=== PATIENT | male | born 1960 | race Caucasian/White ===

== ENCOUNTER → 2020-10-13 | Outpatient (REF) | payer MEDICARE, OTHER | LOC: M LAB REF 15:59 | PROVIDERS: ATTEND Surgery | DX: I87.312 Chronic venous hypertension (idiopathic) with ulcer of left lower extremity (principal) ==

== ENCOUNTER → 2020-10-21 | Outpatient (CLI) | payer MEDICARE, BC, OTHER ==
[2020-10-21 14:43] LABS: BASO % 0.4 % (0.0-1.0); EOS % 0.1 % (0.0-3.0); HEMATOCRIT 32.4 % (42.0-52.0); HEMOGLOBIN 8.7 g/dl (13.5-17.5); LYMPH # 0.6 10^3/uL (1.5-5.0); LYMPH % 5.3 % (24.0-44.0); MEAN CORPUSCULAR HEMOGLOBIN 21.1 pg (27.0-33.0); MEAN CORPUSCULAR HGB CONC 26.9 g/dl (32.0-36.5); MEAN CORPUSCULAR VOLUME 78.6 fl (80.0-96.0); MONO # 0.4 10^3/uL (0.0-0.8); MONO % 3.3 % (0.0-5.0); NEUTROPHILS # 9.7 10^3/uL (1.5-8.5); NEUTROPHILS % 89.3 % (36.0-66.0); PLATELET COUNT, AUTOMATED 389 10^3/uL (150-450); RED BLOOD COUNT 4.12 10^6/uL (4.30-6.10); WHITE BLOOD COUNT 10.9 10^3/uL (4.0-10.0)
[2020-10-21 15:11] LABS: ALBUMIN 3.6 GM/DL (3.2-5.2); ALT/SGPT 29 U/L (12-78); BILIRUBIN,TOTAL 0.5 MG/DL (0.2-1.0); BLOOD UREA NITROGEN 22 MG/DL (7-18); C REACTIVE PROTEIN QUANTITATIV 0.73 MG/DL (0.00-0.30); CALCIUM LEVEL 8.8 MG/DL (8.5-10.1); CARBON DIOXIDE LEVEL 26 MEQ/L (21-32); CHLORIDE LEVEL 98 MEQ/L (98-107); CREATININE FOR GFR 1.17 MG/DL (0.70-1.30); ERYTHROCYTE SEDIMENTATION RATE 25 mm/hr (0-20); GLOMERULAR FILTRATION RATE > 60.0 (>56); GLUCOSE, FASTING 302 MG/DL (70-100); POTASSIUM SERUM 4.7 MEQ/L (3.5-5.1); SODIUM LEVEL 136 MEQ/L (136-145)
[2020-10-21 15:34] LABS: HEMOGLOBIN A1c 8.2 %
--- NOTE | 2020-10-21 17:07 | REP ---
INDICATION: CHRONIC VENOUS HTN W/ ULCER, LABS 1ST THEN US. COMPARISON: None FINDINGS: Ankle brachial index unobtainable. 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 Profundal 103 centimeters/second triphasic. SFA proximal 217 centimeters/seconds triphasic. SFA Mid 118 centimeters/second triphasic SFA distal 108 centimeters/second triphasic Popliteal 117 centimeters/second triphasic Anterior tibial artery proximal 89.0 centimeters/second biphasic Tibioperoneal trunk 109 centimeters/second triphasic Posterior tibial artery proximally 98.2 centimeters/second triphasic Posterior tibial artery distal 139 centimeters/second triphasic. Anterior tibial artery distal 107 centimeters/second biphasic Moderate plaque was seen throughout the exam. IMPRESSION: As above <Electronically signed by Lito Newton > 10/21/20 1835
[2020-10-23 13:08] LABS: ANTINUCLEAR ANTIBODIES DIRECT Negative (Negative)
== END ==
LOC: M RAD 13:58
PROVIDERS: ATTEND Surgery
DX: I87.312 Chronic venous hypertension (idiopathic) with ulcer of left lower extremity (principal); L97.822 Non-pressure chronic ulcer of other part of left lower leg with fat layer exposed; Z79.899 Other long term (current) drug therapy

== ENCOUNTER → 2020-11-17 | Outpatient (CLI) | payer MEDICARE, BC, OTHER ==
[~2020-11-17] MED LIST: AMAR1TAB5 PO; AMIT25TA17 PO; CBD OIL SL; ELIQ2.5T PO; FISH1000 PO; IRBE150T7 PO; LIDO85CR TP; LOPE1LIQ18 PO; METF500T13 PO; PRAV40TA2 PO; PRED10TA2 PO; PYRI60TA2 PO; SANT250O8 TOP; TRAM50TA2 PO; TRUL10IN SC; VITA500C24 PO; ZINC1TAB2 PO; [UNRECOGNIZED DRUG - CODE] TOP; chondroitin PO; glucosamine PO
--- NOTE | 2020-11-17 16:55 | REP ---
INDICATION: OSTEOARTHRITIS. Monoclonal gammopathy. Osteoarthritis. COMPARISON: None. TECHNIQUE: Sixteen views. AP and lateral views of the skull are obtained along with AP and lateral views of the cervical, thoracic, and lumbar spine. AP pelvis and AP bilateral femur and bilateral humerus views are obtained. FINDINGS: Bony calvarium is intact. No lytic or punched-out lesion is seen in the skull. AP and lateral views of the cervical spine show mild vascular calcification. Degenerative spondylosis changes are seen at C5-6 and C6-7 with degenerative disc disease and some straightening. Vertebral body heights are preserved. AP and lateral views of the thoracic spine show preserved vertebral body heights. Old healed rib fractures are noted on the right posteriorly. Degenerative disc disease is noted in the thoracic spine. Pedicles and posterior elements are intact. Vertebral body heights are preserved. Lumbar spine view show fusion hardware L3 through L5 bilaterally. Lumbar vertebral body heights are preserved. Degenerative disc disease is noted at L2-3 and to a lesser extent at L1-2 and T12-L1. No fracture or collapse is seen. Long bone images demonstrate bilateral hip arthroplasties with bilateral heterotopic bone formation. No bony radiolucency or lytic lesion is seen. Vascular calcification is noted diffusely. Bilateral shoulder arthroplasties are noted as well. IMPRESSION: No evidence of bony destructive lytic lesion or metastasis. <Electronically signed by Jero Brenner > 11/17/20 [id number]
== END ==
LOC: M RAD 13:16
PROVIDERS: ATTEND Internal Medicine Medical Oncology
DX: D47.2 Monoclonal gammopathy (principal); M19.90 Unspecified osteoarthritis, unspecified site

== ENCOUNTER → 2021-01-06 | Outpatient (CLI) | payer MEDICARE, BC, OTHER ==
[~2021-01-06] MED LIST changes: +ASPI81TA26 PO; +ATOR40TA75 PO; +DICL1GEL3 TOP; +FERR325T3 PO; +GLIM1TAB4 PO; +PRED50TA PO
== END ==
LOC: M LABSMTC 12:34
PROVIDERS: ATTEND Anesthesiology
DX: Z01.818 Encounter for other preprocedural examination (principal); Z11.52 Encounter for screening for COVID-19

== ENCOUNTER → 2021-01-07 | Outpatient (CLI) | payer MEDICARE, BC, OTHER ==
--- NOTE | 2021-01-12 17:13 | SLEEPCENT ---
DATE: 01/07/2021 ORDERED BY: Dr. Corazon Kidd Nocturnal polysomnography was performed for evaluation of sleep physiology in this patient with a history of excessive somnolence and nonrestorative sleep. There was 7 hours and 41 of data reviewed. There was 372 minutes of sleep identified. Sleep latency was normal at 12.5 minutes. REM sleep was mildly prolonged at 122 minutes. Sleep architecture fair with fragmentation. There were three REM cycles noted. Overall sleep efficiency 82.2%. The electrocardiogram showed a sinus rhythm with an average heart rate of 66 beats per minute. There were some premature ventricular contractions (PVCs) appreciated. EEG showed coarsening in background but otherwise normal waveforms for wake and sleep. There were 187 respiratory events identified of 10 seconds in duration or greater for an apnea-hypopnea index of 30.2. The events were obstructive for the most part. Thirty-two mixed and central apneas were seen. The events were not exclusive to sleep stage nor body posture. Arousals from respiratory events occurred 8.1 times per hour, and oxygen desaturations below 90% were seen. There was activity in the limb leads. Limb movement arousal index was 2.4. IMPRESSION: Obstructive sleep apnea syndrome (G47.33). Apnea-hypopnea index 30.2 RECOMMENDATION: The patient should be encouraged to return to the sleep disorder center for pressure therapy. In the interim, alcohol and sedative avoidance should be practiced and caution exercised during the operation of motor vehicles.
== END ==
LOC: M SLEEP 20:00
PROVIDERS: ATTEND Internal Medicine Pulmonary Disease
DX: G47.33 Obstructive sleep apnea (adult) (pediatric) (principal)

== ENCOUNTER 2021-01-11 07:54 | Day surgery (SDC) | payer MEDICARE, BC, OTHER ==
[~2021-01-11] VITALS: Ht 177.8 cm; Wt 100.7 kg
[~2021-01-11 07:54] MED LIST changes: +LIDOCAINE 2% 100MG/5ML SDV (FOR ANES.) As Ordered ONE; +NS 1,000 ML IV ONE; +fentaNYL 100 MCG/2 ML INJECTION (J3010) As Ordered ONE; +propofoL 200 MG/20 ML VIAL As Ordered ONE
[2021-01-11] MEDS ORDERED: PHENYLephrine 500MCG 5ML (100MCG/ML) SYRINGE As Ordered ONE (10:27)
[2021-01-11] MEDS ORDERED: SIMETHICONE 40MG/0.6ML DROPS 30ML As Ordered ONE (10:37)
--- NOTE | 2021-01-11 10:39 | ROOR ---
Patient Name: Salvador Aguillon Procedure Date: 01/11/2021 10:06 AM Date of : 1960 Age: 60 Room: [facility] Gender: Male Note Status: Finalized Procedure: Upper GI endoscopy Indications: Iron deficiency anemia Providers: Vinicio DOTSON MD Referring MD: María Elena ANDERSON MD Requesting Provider: Medicines: Monitored Anesthesia Care Complications: No immediate complications. Procedure: Pre-Anesthesia Assessment: - The heart rate, respiratory rate, oxygen saturations, blood pressure, adequacy of pulmonary ventilation, and response to care were monitored throughout the procedure. The Endoscope was introduced through the mouth, and advanced to the third part of duodenum. The upper GI endoscopy was accomplished without difficulty. The patient tolerated the procedure well. Findings: A medium-sized ulcerated mass with no bleeding was found in the second portion of the duodenum. (visualized with straight and side view scope. The mass is not associated with the papilla. It is located opposite the papilla) Biopsies were taken with a cold forceps for histology. The exam was otherwise without abnormality. Biopsies for histology were taken with a cold forceps in the second portion of the duodenum and in the third portion of the duodenum for evaluation of celiac disease. Impression: - 2.5 cm duodenal mass at the junction between first and second portions of the duodenum. The lesion is not associated with papilla. (It is located on opposite wall). Biopsied. - The examination was otherwise normal. - Biopsies were taken with a cold forceps for evaluation of celiac disease. Recommendation: - Await pathology results. - Telephone endoscopist for pathology results in 2 weeks. Procedure Code(s): --- Professional --- 02233, Esophagogastroduodenoscopy, flexible, transoral; with biopsy, single or multiple Diagnosis Code(s): --- Professional --- D50.9, Iron deficiency anemia, unspecified K31.89, Other diseases of stomach and duodenum CPT copyright 2019 [employer]. All rights reserved. The codes documented in this report are preliminary and upon blade groover review may be revised to meet current compliance requirements. Vinicio Dotson MD Vinicio DOTSON MD 01/11/2021 10:38:34 AM Electronically signed by Vinicio DOTSON MD Number of Addenda: 0 Note Initiated On: 01/11/2021 10:06 AM Estimated Blood Loss: Estimated blood loss: none.
--- NOTE | 2021-01-11 10:56 | ROOR ---
Patient Name: Salvador Aguillon Procedure Date: 01/11/2021 10:07 AM Date of : 1960 Age: 60 Room: [facility] Gender: Male Note Status: Finalized Procedure: Colonoscopy Indications: Iron deficiency anemia Providers: Vinicio DOTSON MD Referring MD: María Elena ANDERSON MD Requesting Provider: Medicines: Monitored Anesthesia Care Complications: No immediate complications. Procedure: Pre-Anesthesia Assessment: - The heart rate, respiratory rate, oxygen saturations, blood pressure, adequacy of pulmonary ventilation, and response to care were monitored throughout the procedure. The Colonoscope was introduced through the anus and advanced to the cecum, identified by appendiceal orifice and ileocecal valve. The colonoscopy was performed without difficulty. The patient tolerated the procedure well. The quality of the bowel preparation was good. Findings: The perianal and digital rectal examinations were normal. Three semi-sessile polyps were found in the hepatic flexure and ascending colon. The polyps were 4 to 9 mm in size. These polyps were removed with a cold snare. Resection and retrieval were complete. Mild sigmoid diverticulosis and small internal hemorrhoids. The exam was otherwise without abnormality on direct and retroflexion views. Impression: - Three 4 to 9 mm polyps at the hepatic flexure and in the ascending colon, removed with a cold snare. Resected and retrieved. - Mild sigmoid diverticulosis and small internal hemorrhoids. - The examination was otherwise normal on direct and retroflexion views. Recommendation: - Repeat colonoscopy in 3 years for surveillance. Procedure Code(s): --- Professional --- 91776, Colonoscopy, flexible; with removal of tumor(s), polyp(s), or other lesion(s) by snare technique Diagnosis Code(s): --- Professional --- D50.9, Iron deficiency anemia, unspecified K63.5, Polyp of colon CPT copyright 2019 [employer]. All rights reserved. The codes documented in this report are preliminary and upon sap portal consultant review may be revised to meet current compliance requirements. Vinicio Dotson MD Vinicio DOTSON MD 01/11/2021 10:56:00 AM Electronically signed by Vinicio DOTSON MD Number of Addenda: 0 Note Initiated On: 01/11/2021 10:07 AM Estimated Blood Loss: Estimated blood loss: none.
[2021-01-11 11:25] VITALS: BP 138/74
== END 2021-01-11 11:30 | disposition home or self-care (01) ==
LOC: M OPP 07:54
PROVIDERS: ATTEND Internal Medicine Gastroenterology
DX: D12.2 Benign neoplasm of ascending colon (principal); K57.30 Diverticulosis of large intestine without perforation or abscess without bleeding; K64.8 Other hemorrhoids; D50.9 Iron deficiency anemia, unspecified; K31.89 Other diseases of stomach and duodenum; G70.00 Myasthenia gravis without (acute) exacerbation; I48.91 Unspecified atrial fibrillation; E11.9 Type 2 diabetes mellitus without complications; Z79.82 Long term (current) use of aspirin; Z79.899 Other long term (current) drug therapy; Z88.0 Allergy status to penicillin; Z88.1 Allergy status to other antibiotic agents; Z88.2 Allergy status to sulfonamides
CPT/HCPCS: 43239; 45385; 88305; J2370; J3010

== ENCOUNTER → 2021-01-20 | Outpatient (CLI) | payer MEDICARE, BC, OTHER ==
[~2021-01-20] MED LIST changes: +ATOV5SUS PO; +GLUC1CAP10 PO; +LIDO85CR TOP; -LIDO85CR TP; -LIDOCAINE 2% 100MG/5ML SDV (FOR ANES.) As Ordered ONE; -NS 1,000 ML IV ONE; -fentaNYL 100 MCG/2 ML INJECTION (J3010) As Ordered ONE; -propofoL 200 MG/20 ML VIAL As Ordered ONE
== END ==
LOC: M LABSMTC 11:56
PROVIDERS: ATTEND Anesthesiology
DX: Z01.818 Encounter for other preprocedural examination (principal); Z11.52 Encounter for screening for COVID-19

== ENCOUNTER 2021-01-25 09:12 | Day surgery (SDC) | payer MEDICARE, BC, OTHER ==
[~2021-01-25] VITALS: Ht 177.8 cm; Wt 99.8 kg
[~2021-01-25 09:12] MED LIST changes: +NS 1,000 ML IV ONE
--- NOTE | 2021-01-25 10:38 | ROOR ---
Patient Name: Salvador Aguillon Procedure Date: 01/25/2021 10:08 AM Date of : 1960 Age: 60 Room: [facility] Gender: Male Note Status: Finalized Procedure: Upper GI endoscopy Indications: Diagnostic procedure, duodenal mass--for repeat biopsy Providers: Vinicio DOTSON MD Referring MD: María Elena ANDERSON MD Requesting Provider: Medicines: Monitored Anesthesia Care Complications: No immediate complications. Procedure: Pre-Anesthesia Assessment: - The heart rate, respiratory rate, oxygen saturations, blood pressure, adequacy of pulmonary ventilation, and response to care were monitored throughout the procedure. The Duodenoscope was introduced through the mouth, and advanced to the second part of duodenum. The upper GI endoscopy was accomplished without difficulty. The patient tolerated the procedure well. Findings: A medium-sized polypoid, submucosal and ulcerated mass with no bleeding was found in the second portion of the duodenum. Biopsies were taken with a cold forceps for histology. The exam was otherwise without abnormality. Impression: - 2.5 cm duodenal mass (Separate from Papilla/Opposite wall). Biopsied. - The examination was otherwise normal. Recommendation: - Await pathology results. Procedure Code(s): --- Professional --- 50256, Esophagogastroduodenoscopy, flexible, transoral; with biopsy, single or multiple Diagnosis Code(s): --- Professional --- K31.89, Other diseases of stomach and duodenum CPT copyright 2019 [employer]. All rights reserved. The codes documented in this report are preliminary and upon payroll bookkeeper review may be revised to meet current compliance requirements. Vinicio Dotson MD Vinicio DOTSON MD 01/25/2021 10:38:39 AM Electronically signed by Vinicio DOTSON MD Number of Addenda: 0 Note Initiated On: 01/25/2021 10:08 AM Estimated Blood Loss: Estimated blood loss: none.
[2021-01-25] MEDS ORDERED: GLUCAGON INJ 1MG VIAL As Ordered ONE (10:43)
[2021-01-25] MEDS ORDERED: propofoL 200 MG/20 ML VIAL As Ordered ONE (10:43)
[2021-01-25] MEDS ORDERED: LIDOCAINE 2% 100MG/5ML SDV (FOR ANES.) As Ordered ONE (10:43)
[2021-01-25 11:00] VITALS: BP 101/60
[2021-01-26] MEDS ORDERED: PRAV40TA2 PO (11:22)
[2021-01-26] MEDS ORDERED: TRUL0.5I SC (11:22)
[2021-01-26] MEDS ORDERED: IRON65TA2 PO (12:03)
[2021-01-26] MEDS ORDERED: LOPE2CAP PO (12:03)
[2021-01-26] MEDS ORDERED: PRED10TA2 PO (12:03)
[2021-01-26] MEDS ORDERED: GLIM2TAB4 PO (12:03)
== END 2021-01-25 11:09 | disposition home or self-care (01) ==
LOC: M OPP 09:12
PROVIDERS: ATTEND Internal Medicine Gastroenterology
DX: K31.89 Other diseases of stomach and duodenum (principal); D13.2 Benign neoplasm of duodenum; I10 Essential (primary) hypertension; E78.5 Hyperlipidemia, unspecified; E11.9 Type 2 diabetes mellitus without complications; D50.9 Iron deficiency anemia, unspecified; M19.90 Unspecified osteoarthritis, unspecified site; G70.00 Myasthenia gravis without (acute) exacerbation; G47.30 Sleep apnea, unspecified; Z88.1 Allergy status to other antibiotic agents; Z88.8 Allergy status to other drugs, medicaments and biological substances; Z79.82 Long term (current) use of aspirin; Z79.84 Long term (current) use of oral hypoglycemic drugs; Z79.899 Other long term (current) drug therapy; Z86.16 Personal history of COVID-19; Z82.49 Family history of ischemic heart disease and other diseases of the circulatory system; Z83.3 Family history of diabetes mellitus
CPT/HCPCS: 43239; 88305; J1610

== ENCOUNTER 2021-01-26 09:28 | Observation (INO) | payer MEDICARE, BC, OTHER ==
[~2021-01-26] VITALS: Ht 177.8 cm; Wt 99.1 kg
[2021-01-26] VITALS (10 sets, daily range): BP systolic 105–133; BP diastolic 57–78
[~2021-01-26 09:28] MED LIST changes: -NS 1,000 ML IV ONE
[2021-01-26 10:02] LABS: HEMATOCRIT 28.1 % (42.0-52.0); HEMOGLOBIN 7.9 g/dl (13.5-17.5); MEAN CORPUSCULAR HGB CONC 28.1 g/dl (32.0-36.5); MEAN CORPUSCULAR VOLUME 78.3 fl (80.0-96.0); PLATELET COUNT, AUTOMATED 366 10^3/uL (150-450); RED BLOOD COUNT 3.59 10^6/uL (4.30-6.10); WHITE BLOOD COUNT 18.6 10^3/uL (4.0-10.0)
[2021-01-26] MEDS ORDERED: PANTOPRAZOLE 40MG VIAL (C9113 PER 1) IV ONE (10:20)
[2021-01-26 10:22] LABS: ALBUMIN 3.1 GM/DL (3.2-5.2); ALT/SGPT 32 U/L (12-78); BILIRUBIN,TOTAL 0.3 MG/DL (0.2-1.0); BLOOD UREA NITROGEN 33 MG/DL (7-18); CALCIUM LEVEL 8.5 MG/DL (8.5-10.1); CARBON DIOXIDE LEVEL 24 MEQ/L (21-32); CHLORIDE LEVEL 106 MEQ/L (98-107); CREATININE FOR GFR 0.99 MG/DL (0.70-1.30); GLOMERULAR FILTRATION RATE > 60.0 (>56); GLUCOSE, FASTING 306 MG/DL (70-100); POTASSIUM SERUM 4.4 MEQ/L (3.5-5.1); SODIUM LEVEL 139 MEQ/L (136-145); TOTAL PROTEIN 6.1 GM/DL (6.4-8.2)
[2021-01-26] MEDS ORDERED: PANTOPRAZOLE SODIUM 40 MG in D5W 50 ML IV SCH (10:30)
[2021-01-26 10:48] LABS: INR 1.06; PROTHROMBIN TIME 14.1 SECONDS (12.5-14.3)
[2021-01-26] MEDS ORDERED: PRAV40TA2 PO (11:22)
[2021-01-26] MEDS ORDERED: TRUL0.5I SC (11:22)
[2021-01-26] MEDS ORDERED: AMITRIPTYLINE 25MG TABLET PO PRN (12:00)
[2021-01-26] MEDS ORDERED: ACETAMINOPHEN TAB 650MG DOSE (2X325MG) PO PRN (12:00)
[2021-01-26 12:03] LABS: RSV AMPLIFICATION NEGATIVE (NEGATIVE)
[2021-01-26] MEDS ORDERED: PRED10TA2 PO (12:03)
[2021-01-26] MEDS ORDERED: GLIM2TAB4 PO (12:03)
[2021-01-26] MEDS ORDERED: IRON65TA2 PO (12:03)
[2021-01-26] MEDS ORDERED: LOPE2CAP PO (12:03)
[2021-01-26] MEDS: SUCRALFATE SUSP 1GM/10ML UD PO SCH ×2 (14:25→17:34)
[2021-01-26 15:08] LABS: HEMATOCRIT 28.4 % (42.0-52.0); HEMOGLOBIN 8.2 g/dl (13.5-17.5)
--- NOTE | 2021-01-26 15:26 | HPEPDOC ---
[facility] Medical History & Physical Date of Admission January 26, 2021 Date of Service: January 26, 2021 Attending Physician: JACKIE MEANS MD History and Physical CHIEF COMPLAINT: Hematochezia HISTORY OF PRESENT ILLNESS: Patient is a 60 y/o M with hx of HTN, HLD, DM2, Myasthenia gravis (dx in 1983, on chronic prednisone 25mg QD) and recent COVID19 with 1 month of hospitalization (07/18-08/18 at [facility], currently on 1L/min O2 at home), presenting to the ED today c/o 4 episodes of maroon colored blood per rectum since 6am this morning, with associated exertional symptoms of lightheadedness, SOB, chills, weakness and nausea. To preface, patient recently had a 1 month hospitalization at [facility] (07/18-08/18/2020) 2/2 COVID. During this hospital course, patient was found anemic but workup was deferred due to patient's acute disease. Since discharge, his Hgb has a new baseline of around 9. He has had outpatient workup for his anemia with both Heme/Onc (Dr. Hussein) and GI (Dr. Franco), and recently had an EGD and colonoscopy done on 01/11/2021 for iron deficiency anemia. Colonoscopy removed three semi-sessile polyps (measuring 4-9mm) at hepatic flexure and ascending colon, biopsy showing fragments of tubular adenoma. EGD found a 2.5 cm duodenal mass at the junction between first and second portions of the duodenum, biopsy showing superficial fragments of duodenal mucosa with reactive atypia without evidence of high grade dysplasia. Due to high level of suspicion, Dr. Franco performed another EGD on patient yesterday to repeat biopsy of the duodenal mass. Patient tolerated the procedure well but subsequently developed 4 episodes of maroon colored hematochezia this morning. After the bleeding episodes, patient reported he felt weak, lightheaded, short of breath with nausea and chills, prompting him to present to ED for evaluation via EMS. It was noted by EMS that pt was hypotensive (82/50) during transport to ED. Patient denied previous experience with hematochezia before. He was at first d/c with Eliquis in 07/2020 as treatment for COVID but regimen was switched to 81mg ASA s/p endoscopies on 01/11/21. Patient denied any other anticoagulation regimen. In addition, patient denied recent fever, vomiting, hematemesis, CP, cough with sputum, weight loss but noted chronic occasional diarrhea of 1-2 episodes weekly. He denied family history of cancer. In the ED, patient was found with microcytic anemia (H&H 7.9 & 28.1, MCV 78.3). Orthostatic hypotension test was positive by HR (HR ronel from 69-105, BP ronel from 135/57- 150/70). 1 unit of pRBC was ordered in the ED and hospitalist was called to admit patient for hematochezia. EKG showed patient in junctional rhythm at rate of 63 bpm. Patient reported that he has had arrhythmia (unable to recall diagnosis) since a very young age and recently had an unremarkable Holter monitor test done at [facility]. He does not follow with any sock drier at this time. Of note, patient has a hx of pyoderma gangrenosum that was dx in 2008 that was treated with prednisone and resolved after 6 months. However, since his discharge from his COVID related hospitalization in 07/2020, patient developed wound openings in posterior legs. He has been followed by wound care (Dr. Lott) and was given diagnosis of calciphylaxis in 10/2020. He now sees Dr. Lott every Monday for wound debridement of his R posterior leg. 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 Chronic Anemia PAST SURGICAL HISTORY: THYMECTOMY 05/30/1984 INFECTED WISDOM TEETH REMOVAL 12/22/1986 FUSION OF RIGHT GREAT TOE AND MTP 02/18/1999 LEFT ANKLE FUSION 1998 CATARACT LEFT EYE 2003 CATARACT RIGHT EYE 2003 YAG CAPSULOTOMY LEFT EYE 2004 YAG CAPSULOTOMY RIGHT EYE 2004 TOTAL RIGHT HIP REPLACEMENT 2008 TOTAL LEFT SHOULDER REPLACEMENT 2008 TOTAL RIGHT SHOULDER REPLACEMENT 2010 VENTRAL UMBILICAL HERNIA REPAIR 2010 RIGHT CARPEL TUNNEL & GUYON'S RELEASE & RIGHT TRANSPOSITION @ [place]BOX 2010 RIGHT FOOT AND ANKLE RECONSTRUCTION 2011 LEFT WRST CARPEL TUNNEL 2012 TOTAL LEFT HIP REPLACEMENT 2012 PARTIAL REMOVAL OF RIGHT FIBULA & DRAINED ABCESS 2012 RIGHT ELBOW OLECRANON BURSA EXCISION 2013 LEFT ANKLE OSTEOTOMY & FUSION 2014 POSTERIOR LLUMBAR DECOMPRESSION & TILF 2015 SOCIAL HISTORY: Children: 2 sons 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 MOTHER: ALIVE with hx of thyroid disease and rheumatoid issues SIBLINGS: 1 BROTHER, 4 SISTERS, 1 sister with hx of psoriasis and psoriatic arthritis, 2 sisters with hx of multiple sclerosis 2 SONS: SONS HAVE LEGG PERTHES DISEASE ALLERGIES: Please see below. REVIEW OF SYSTEMS: CONSTITUTIONAL: Denies fever, unexpected weight change, loss of appetite, noted chills, weakness and fatigue HEENT: Denies headaches, vision changes, hearing changes or throat pain, but not ed lightheadedness CARDIOVASCULAR: Denies chest pain, palpitations but noted chronic B/L LE edema a nd MAYS RESPIRATORY: Denies wheezing, dyspnea at rest, cough or hemoptysis GASTROINTESTINAL: Denies vomiting, abdominal pain, constipation, but noted nausea, chronic diarrhea (1-2 episodes weekly) and hematochezia. GENITAOURINARY: Denies dysuria, hematuria, urinary frequency, incontinence or retention. SKIN: Denies skin changes, rash, lesions, jaundice, bruising MUSCULOSKELETAL: Denies muscle or joint pain but noted weakness NEUROLOGICAL: Denies focal weakness, numbness, tingling, change in Speech HEMATOLOGICAL: Denies bruising, excessive bleeding, petechiae HOME MEDICATIONS: Please see below. PHYSICAL EXAMINATION: VITAL SIGNS: See below GENERAL APPEARANCE: Revealed 60 y/o M in semi-griffin position on ED cot, Alert & oriented x3, in no Acute Distress. HEENT Exam: Normocephalic and atraumatic, PERRL, EOMI, without sclera icteric, mucous membr. moist/pink, pharynx normal, nares patent. NECK: Supple without lymphadenopathy, JVD, thyromegaly LUNGS: Clear to auscultation bilaterally with full breath sounds without rales, wheezing, and crackles. Healed surgical scar noted on upper sternum. CARDIOVASCULAR: Regular rate and rhythm, normal S1 & S2 without gallops, murmurs, rubs ABDOMEN: Soft, non-distended with normal bowel sounds. Tenderness noted on deep palpation in bilateral lower quadrants. No masses or ecchymosis or hepatosplenomegaly. EXTREMITIES: 2+ pulses in all extremities. No clubbing, cyanosis, tenderness. 3+ pitting edema noted bilaterally R>L extending distally from bilateral tibial tuberosity. LLE dressed in bandage. SKIN: Normal turgor and temperature. No rash, lesion MUSCULOSKELETAL: Strength +5/5 in all extremities without tenderness except 4/5 strength noted on L hip flexion. Limited ROM in bilateral ankles due to ankle fusion surgeries. NEUROLOGICAL: Normal gait and speech with intact sensation, cranial nerves III- XII normal, No signs of gross focal neurological deficit. PSYCHIATRIC: Normal mood and affect LABORATORY DATA: See below. IMAGING: None on this visit MICROBIOLOGY: Please see below. ASSESSMENT: Patient is a 60 y/o M with hx of HTN, HLD, DM2, Myasthenia gravis (dx in 1983, on chronic prednisone 25mg QD) and recent COVID19 with 1 month of hospitalization (07/18-08/18 at [facility], currently on 1L/min O2 at [facility]), presenting to the ED today c/o 4 episodes of maroon colored blood per rectum since 6am this morning after a repeat EGD with repeat biopsy of duodenal mass yesterday. In the ED, patient was found with microcytic anemia (H&H 7.9 & 28.1, MCV 78.3). Orthostatic hypotension test was positive by HR (HR ronel from 69-105, BP ronel from 135/57- 150/70). 1 unit of pRBC was ordered in the ED and hospitalist was called to admit patient for hematochezia. EKG showed patient in junctional rhythm at rate of 63 bpm. PLAN: 1. Hematochezia - Likely 2/2 hemorrhage of the biopsy site (EGD done yesterday 01/25) - Unlikely infectious in etiology, patient without SXS of acute infection - Hgb 7.9 in the ED with baseline at 9 given chronic iron deficiency anemia - 1 unit of pRBC ordered in ED - Cont to monitor CBC q12hr - Clear liquid diet - Start pantoprazole 40mg IV BID - Start sucralfate PO BID - Hold ASA, pt not on other anticoagulants - Fall precaution 2. Leukocytosis - WBC 18.6 - Likely 2/2 chronic steroid regimen - No signs of acute infection at this time - Cont to monitor 3. Duodenal mass - 01/11/2021 had both EGD and colonoscopy for iron deficiency anemia. - Colonoscopy removed three semi-sessile polyps (measuring 4-9mm) at hepatic flexure and ascending colon, biopsy showing fragments of tubular adenoma. - EGD found a 2.5 cm duodenal mass at the junction between first and second portions of the duodenum, biopsy showing superficial fragments of duodenal mucosa with reactive atypia without evidence of high grade dysplasia. - Due to high level of suspicion, Dr. Franco performed another EGD on patient 01/26 to repeat biopsy of the duodenal mass. - Repeat Bx results pending 4. Calciphylaxis of leg - Patient has been followed by wound care (Dr. Lott) and receives weekly debridement every Monday - Wound care consult 5. Iron deficiency anemia - Cont iron supplementation 6. Junctional rhythm - Patient reported hx of unspecified arrhythmia since childhood and recently had an unremarkable Holter monitor test at [facility] - EKG in ED showed junctional rhythm at rate of 63bpm and patient asymptomatic 7. Myasthenia Gravis - Cont prednisone - Cont pyridostigmine - Cont atovaquone, patient on atovaquone for Pneumocystis prophylaxis 2/2 chron ic steroid 8. HTN - Cont Irbesartan 9. HLD - Cont atorvastatin 10. DM2 - Hold oral metformin and glimepiride - Cont SSI DVT Prophylaxis: No anticoagulant at this time 2/2 bleeding, cont TEDs and sequentials Code status: Full code Diet: As tolerated Disposition: Anticipate discharge once hemodynamically stable. Vital Signs Vital Signs Date Time Temp Pulse Resp B/P (MAP) Pulse Ox O2 Delivery O2 Flow Rate FiO2 01/26/21 12:30 67 129/71 99 Nasal Cannula 1.0 01/26/21 12:15 98.6 16 Laboratory Data Labs 24H Laboratory Tests 2 01/26/21 09:45: Nucleated Red Blood Cells % (auto) 0.0, Anion Gap 9, Glomerular Filtration Rate > 60.0, Calcium Level 8.5, Total Bilirubin 0.3, Aspartate Amino Transf (AST/SGOT) 17, Alanine Aminotransferase (ALT/SGPT) 32, Alkaline Phosphatase 65, Total Protein 6.1L, Albumin 3.1L, Albumin/Globulin Ratio 1.0 01/26/21 10:28: Prothrombin Time 14.1H, Prothromb Time International Ratio 1.06 01/26/21 11:07: Coronavirus (COVID-19)(PCR) NEGATIVE, Influenza Type A (RT-PCR) NEGATIVE, Influenza Type B (RT-PCR) NEGATIVE, Respiratory Syncytial Virus (PCR) NEGATIVE CBC/BMP Laboratory Tests 01/26/21 09:45 Home Medications Scheduled Ascorbic Acid (Vitamin C) 500 Mg Capsule, 500 MG PO DAILY Aspirin (Aspirin EC) 81 Mg Tablet.dr, 81 MG PO DAILY Atorvastatin Calcium (Atorvastatin Calcium) 40 Mg Tablet, 40 MG PO QPM WITH SUPPER Atovaquone (Atovaquone) 750 Mg/5 Ml Oral.susp, 750 MG PO QPM WITH SUPPER Collagenase Clostridium Hist. (Santyl) 30 Gm Oint...g., 1 DOSE TOP DAILY APPLY LAYER TO WOUND Dulaglutide (Trulicity) 1.5 Mg/0.5 Ml Pen.injctr, 1.5 MG SC 1XWK MONDAYS Ferrous Sulfate (Iron) 325 Mg Tablet, 325 MG PO 3XW , , SAT Glimepiride (Glimepiride) 2 Mg Tablet, 2 MG PO DAILY @ NOON Gluc Moise/Chondro Moise A/Vit C/Mn (Glucosamine-Chondroitin Cap) 1 Each Capsule, 1 CAP PO BID Irbesartan (Irbesartan) 150 Mg Tablet, 150 MG PO DAILY @ NOON Lidocaine HCl/Benzyl Alcohol (Salonpas Lidocain Pls 4-10% Cr) 4 %-10 % Cream..g., 1 PATCH TOP QAM APPLY TO BACK Metformin HCl (Metformin HCl) 500 Mg Tablet, 1,000 MG PO BID [place]-3 Fatty Acids/Fish Oil (Fish Oil 1,000 mg Capsule) 1 Each Capsule, 1,000 MG PO DAILY Prednisone (Prednisone) 10 Mg Tablet, 25 MG PO DAILY Pyridostigmine [place] (Pyridostigmine [place]) 60 Mg Tablet, 60 MG PO TID Zinc (Zinc) 50 Mg Tablet, 50 MG PO DAILY Scheduled PRN Amitriptyline HCl (Amitriptyline HCl) 25 Mg Tablet, 25 MG PO QHS PRN for SLEEP Loperamide HCl (Loperamide) 2 Mg Capsule, 4 MG PO Q6H PRN for AFTER EACH LOOSE STOOL Tramadol HCl (Tramadol HCl) 50 Mg Tablet, 100 MG PO Q6H PRN for PAIN Allergies Coded Allergies: sulfamethoxazole (Verified Allergy, Severe, face and lip swelling, 01/21/21) trimethoprim (Verified Allergy, Severe, lip swelling, 01/21/21) ampicillin (Verified Allergy, Mild, body rash, 01/21/21) clindamycin (Verified Allergy, Mild, body rash, 01/21/21) silver sulfadiazine (Verified Allergy, Mild, irritation,pain, reddness, ) tolnaftate (Verified Allergy, Mild, body rash, 01/21/21) A-FIB/CHADSVASC A-FIB History Current/History of A-Fib/PAF?: No GME ATTESTATION GME ATTESTATION My faculty preceptor for this patient encounter was physically present during the encounter and was fully available. All aspects of the patient interview, examination, medical decision making process, and medical care plan development were reviewed and approved by the faculty preceptor. The faculty preceptor is aware and concurs with the plan as stated in the body of this note and will attest to such by his/her cosignature. ONDINA CASAREZ OMS-3 January 26, 2021 13:40
[2021-01-26] MEDS ORDERED: DEXTROSE 50% 50 ML SYRINGE IV PRN (15:45)
[2021-01-26] MEDS ORDERED: GLUCAGON INJ 1MG VIAL SC PRN (15:45)
[2021-01-26] MEDS ORDERED: GLUCOSE 4GM CHEW TABLET PO PRN (15:45)
[2021-01-26] MEDS: ATOVAQUONE SUSP 750MG/5ML 210 ML BTL PO SCH (17:32)
[2021-01-26] MEDS: PYRIDOSTIGMINE 60 MG TAB PO SCH ×2 (17:32→21:04)
[2021-01-26] MEDS: HumaLOG INSULIN (NovoLOG) PER UNIT SC SCH ×2 (17:32→21:00)
--- NOTE | 2021-01-26 17:52 | ECGEPIP ---
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
[2021-01-26] MEDS: PANTOPRAZOLE 40MG VIAL (C9113 PER 1) IV SCH (21:03)
[2021-01-26] MEDS: ATORVASTATIN 20 MG TAB PO SCH (21:03)
[2021-01-26] MEDS: traMADol 50 MG TAB PO PRN (21:04)
[2021-01-26 21:09] LABS: HEMATOCRIT 25.2 % (42.0-52.0); HEMOGLOBIN 7.4 g/dl (13.5-17.5)
[2021-01-27] VITALS (10 sets, daily range): BP systolic 110–143; BP diastolic 66–91
[2021-01-27 06:54] LABS: HEMATOCRIT 23.3 % (42.0-52.0); HEMOGLOBIN 7.1 g/dl (13.5-17.5); MEAN CORPUSCULAR HEMOGLOBIN 23.5 pg (27.0-33.0); MEAN CORPUSCULAR HGB CONC 30.5 g/dl (32.0-36.5); MEAN CORPUSCULAR VOLUME 77.2 fl (80.0-96.0); PLATELET COUNT, AUTOMATED 278 10^3/uL (150-450); RED BLOOD COUNT 3.02 10^6/uL (4.30-6.10); WHITE BLOOD COUNT 10.1 10^3/uL (4.0-10.0)
[2021-01-27 07:20] LABS: BLOOD UREA NITROGEN 22 MG/DL (7-18); CALCIUM LEVEL 8.6 MG/DL (8.5-10.1); CARBON DIOXIDE LEVEL 27 MEQ/L (21-32); CHLORIDE LEVEL 108 MEQ/L (98-107); CREATININE FOR GFR 0.71 MG/DL (0.70-1.30); GLOMERULAR FILTRATION RATE > 60.0 (>56); GLUCOSE, FASTING 87 MG/DL (70-100); SODIUM LEVEL 140 MEQ/L (136-145)
[2021-01-27] MEDS: HumaLOG INSULIN (NovoLOG) PER UNIT SC SCH ×4 (07:30→20:37)
[2021-01-27] MEDS: ASCORBIC ACID 500 MG TAB PO SCH (08:52)
[2021-01-27] MEDS: SUCRALFATE SUSP 1GM/10ML UD PO SCH ×2 (08:52→17:12)
[2021-01-27] MEDS: PYRIDOSTIGMINE 60 MG TAB PO SCH ×3 (08:52→20:37)
[2021-01-27] MEDS: PANTOPRAZOLE 40MG VIAL (C9113 PER 1) IV SCH ×2 (08:52→20:37)
[2021-01-27] MEDS: predniSONE 20 MG TAB PO SCH (08:52)
[2021-01-27] MEDS: predniSONE 5 MG TAB PO SCH (08:52)
[2021-01-27] MEDS: SANTYL OINT 30GM TOP SCH (08:53)
[2021-01-27] MEDS ORDERED: FERROUS SULFATE 325MG TAB PO SCH (09:00)
--- NOTE | 2021-01-27 10:58 | IPNPDOC ---
Text Note Date of Service The patient was seen on 01/27/21. NOTE S Patient was transfused 1 unit pRBC last night and Hgb improved from 7.9 to 8.2. However, patient dropped again to 7.1 this am. Patient had 2 more episodes of hematochezia yesterday after admission. His last episode was yesterday around 9pm and patient reported small amount of maroon colored stool much less in volume comparison to episodes he had earlier yesterday. He also ambulated from bed and bathroom with cane last night and reported resolution of his exertional symptoms, he denied SOB, lightheadedness, chills and weakness on exertion. He also denied development of fever, chills, vomiting, hematemesis, CP, SOB, abd pain and urinary symptoms but reported some nausea last night that resolved spontaneously. O VITAL SIGNS: See below GENERAL APPEARANCE: Revealed 60 y/o M laying supine in bed with head of bed elevated, Alert & oriented x3, in no Acute Distress. HEENT Exam: Normocephalic and atraumatic, PERRL with minimal reactivity on R pupil, EOMI, without sclera icteric, pale conjunctiva, mucous membr. moist/pink, pharynx normal, nares patent. NC noted at 1L/min. NECK: Supple without lymphadenopathy, JVD, thyromegaly LUNGS: Clear to auscultation bilaterally with full breath sounds without rales, wheezing, and crackles. Healed surgical scar noted on upper sternum. CARDIOVASCULAR: Regular rate and rhythm, normal S1 & S2 without gallops, murmurs, rubs ABDOMEN: Soft, non-distended with normal bowel sounds. Tenderness noted on deep palpation at LLQ. No masses or ecchymosis or hepatosplenomegaly. EXTREMITIES: 2+ pulses in all extremities. No clubbing, cyanosis, tenderness. 3+ pitting edema noted on L and 2+ pitting edema noted on R, both extending distally from bilateral tibial tuberosity. LLE dressed in bandage. SKIN: Normal turgor and temperature. No rash, lesion MUSCULOSKELETAL: Strength +5/5 in all extremities. Limited ROM in bilateral ankles due to ankle fusion surgeries. Surgical scar noted on lumbar spine. NEUROLOGICAL: Normal gait and speech with intact sensation, cranial nerves III- XII normal, No signs of gross focal neurological deficit. PSYCHIATRIC: Normal mood and affect ASSESSMENT: Patient is a 60 y/o M with hx of HTN, HLD, DM2, Myasthenia gravis (dx in 1983, on chronic prednisone 25mg QD) and recent COVID19 with 1 month of hospitalization (07/18-08/18 at [facility] [place], currently on 1L/min O2 at home), presenting to the ED today c/o 4 episodes of maroon colored blood per rectum since 6am on 01/26 after a repeat EGD with repeat biopsy of duodenal mass on 01/25. In the ED, patient was found with microcytic anemia (H&H 7.9 & 28.1, MCV 78.3). Orthostatic hypotension test was positive by HR (HR ronel from 69-105, BP ronel from 135/57- 150/70). 1 unit of pRBC was ordered in the ED and hospitalist was called to admit patient for hematochezia. EKG showed patient in junctional rhythm at rate of 63 bpm. Overnight, patient's Hgb ronel to 8.2 after transfusion and dropped to 7.1 this morning. He had 2 additional episode of hematochezia yesterday but his last episode has been decreasing in volume. Patient ambulated to bathroom yesterday and reported resolution of exertional symptoms. He will receive 2 additional unit of pRBC transfusion today. Anticipate discharge tomorrow if patient remains hemodynamically stable without worsening of hematochezia. PLAN: 1. Hematochezia - Likely 2/2 hemorrhage of the biopsy site (EGD done yesterday 01/25) - Unlikely infectious in etiology, patient without SXS of acute infection - Hgb 7.9 in the ED with baseline at 9 given chronic iron deficiency anemia - After 1 unit of pRBC transfused, Hgb ronel to 8.2 but dropped again to 7.1 this morning. 2 more units of pRBC ordered - Cont to monitor CBC q12hr - Clear liquid diet - Cont pantoprazole 40mg IV BID - Cont sucralfate PO BID - Hold ASA, pt not on other anticoagulants - Fall precaution 2. Leukocytosis, resolved - WBC trended down to 10.1 - Likely 2/2 chronic steroid regimen - No signs of acute infection at this time - Cont to monitor 3. Duodenal mass - 01/11/2021 had both EGD and colonoscopy for iron deficiency anemia. - Colonoscopy removed three semi-sessile polyps (measuring 4-9mm) at hepatic flexure and ascending colon, biopsy showing fragments of tubular adenoma. - EGD found a 2.5 cm duodenal mass at the junction between first and second portions of the duodenum, biopsy showing superficial fragments of duodenal mucosa with reactive atypia without evidence of high grade dysplasia. - Due to high level of suspicion, Dr. Franco performed another EGD on patient to repeat biopsy of the duodenal mass. - Repeat Bx results pending 4. Calciphylaxis of leg - Patient has been followed by wound care (Dr. Lott) and receives weekly debridement every Monday - Wound care ordered 5. Iron deficiency anemia - Cont iron supplementation 6. Junctional rhythm - Patient reported hx of unspecified arrhythmia since childhood and recently had an unremarkable Holter monitor test at [facility] - EKG in ED showed junctional rhythm at rate of 63bpm and patient asymptomatic on 01/26 - Continues to be asymptomatic today 7. Myasthenia Gravis - Cont prednisone - Cont pyridostigmine - Cont atovaquone, patient on atovaquone for Pneumocystis prophylaxis 2/2 chronic steroid 8. HTN - Cont Irbesartan 9. HLD - Cont atorvastatin 10. DM2 - Hold oral metformin and glimepiride - Cont SSI DVT Prophylaxis: No anticoagulant at this time 2/2 bleeding, cont TEDs and sequentials Disposition: Possible discharge tomorrow if patient remains hemodynamically stable without worsening of hematochezia. VS,Fishbone, I+O VS, Fishbone, I+O Laboratory Tests 01/26/21 09:45 01/26/21 14:59 01/26/21 21:03 01/27/21 06:08 Vital Signs Date Time Temp Pulse Resp B/P (MAP) Pulse Ox O2 Delivery O2 Flow Rate FiO2 01/27/21 06:00 98.4 74 18 112/68 (83) 97 Nasal Cannula 1.0 I&O- Last 24 Hours up to 6 AM 01/27/21 06:00 Intake Total 300 ml Output Total 1200 ml Balance -900 ml GME ATTESTATION GME ATTESTATION My faculty preceptor for this patient encounter was physically present during the encounter and was fully available. All aspects of the patient interview, examination, medical decision making process, and medical care plan development were reviewed and approved by the faculty preceptor. The faculty preceptor is aware and concurs with the plan as stated in the body of this note and will attest to such by his/her cosignature. ONDINA CASAREZ OMS-3 January 27, 2021 10:57
[2021-01-27] MEDS: ATOVAQUONE SUSP 750MG/5ML 210 ML BTL PO SCH (17:12)
[2021-01-27] MEDS: traMADol 50 MG TAB PO PRN (20:37)
[2021-01-27] MEDS: ATORVASTATIN 20 MG TAB PO SCH (20:37)
[2021-01-28] VITALS (7 sets, daily range): BP systolic 126–135; BP diastolic 72–74
[2021-01-28 06:13] LABS: HEMATOCRIT 24.8 % (42.0-52.0); HEMOGLOBIN 7.6 g/dl (13.5-17.5); HEMOGLOBIN 7.8 g/dl (13.5-17.5); MEAN CORPUSCULAR HEMOGLOBIN 23.9 pg (27.0-33.0); MEAN CORPUSCULAR HGB CONC 30.6 g/dl (32.0-36.5); PLATELET COUNT, AUTOMATED 228 10^3/uL (150-450); RED BLOOD COUNT 3.18 10^6/uL (4.30-6.10)
[2021-01-28 06:41] LABS: BLOOD UREA NITROGEN 22 MG/DL (7-18); CARBON DIOXIDE LEVEL 28 MEQ/L (21-32); CHLORIDE LEVEL 105 MEQ/L (98-107); CREATININE FOR GFR 0.65 MG/DL (0.70-1.30); GLOMERULAR FILTRATION RATE > 60.0 (>56); GLUCOSE, FASTING 117 MG/DL (70-100); POTASSIUM SERUM 3.5 MEQ/L (3.5-5.1); SODIUM LEVEL 139 MEQ/L (136-145)
[2021-01-28] MEDS: SUCRALFATE SUSP 1GM/10ML UD PO SCH (08:12)
[2021-01-28] MEDS: predniSONE 5 MG TAB PO SCH (08:13)
[2021-01-28] MEDS: PYRIDOSTIGMINE 60 MG TAB PO SCH (08:13)
[2021-01-28] MEDS: HumaLOG INSULIN (NovoLOG) PER UNIT SC SCH ×2 (08:13→12:30)
[2021-01-28] MEDS: predniSONE 20 MG TAB PO SCH (08:13)
[2021-01-28] MEDS: PANTOPRAZOLE 40MG VIAL (C9113 PER 1) IV SCH (08:13)
[2021-01-28] MEDS: SANTYL OINT 30GM TOP SCH (08:13)
[2021-01-28] MEDS: ASCORBIC ACID 500 MG TAB PO SCH (08:14)
[2021-01-28] MEDS ORDERED: SUCR1ORA PO (10:56)
[2021-01-28] MEDS ORDERED: OMEP-218 PO (10:56)
[2021-01-28 13:09] LABS: HEMATOCRIT 33.5 % (42.0-52.0); MEAN CORPUSCULAR HEMOGLOBIN 24.9 pg (27.0-33.0); MEAN CORPUSCULAR HGB CONC 31.3 g/dl (32.0-36.5); MEAN CORPUSCULAR VOLUME 79.6 fl (80.0-96.0); PLATELET COUNT, AUTOMATED 267 10^3/uL (150-450); RED BLOOD COUNT 4.21 10^6/uL (4.30-6.10); WHITE BLOOD COUNT 15.1 10^3/uL (4.0-10.0)
[2021-01-28 13:24] LABS: HEMOGLOBIN 10.5 g/dl (13.5-17.5)
--- NOTE | 2021-01-28 18:40 | DS.PDOC ---
Discharge Summary General Date of Admission January 26, 2021 at 12:13 Date of Discharge 01/28/21 Attending Physician: JACKIE MEANS MD Discharge Summary PROCEDURES PERFORMED DURING STAY: [None]. ADMITTING DIAGNOSES: 1. Symptomatic Anemia 2/2 GI bleed 2. Hypoxia 2/2 previous COVID-19 3. Myasthenia Gravis 4. Duodenal Mass 5. Calciphylaxis of Leg 6. HTN 7. DMII DISCHARGE DIAGNOSES: 1. Symptomatic Anemia 2/2 GI bleed 2. Hypoxia 2/2 previous COVID-19 3. Myasthenia Gravis 4. Duodenal Mass 5. Calciphylaxis of Leg 6. HTN 7. DMII COMPLICATIONS/CHIEF COMPLAINT: Gi Bleed & Symptomatic Anemia. HISTORY OF PRESENT ILLNESS: Patient is a 56-year-old male, past medical history save for hypertension, hyperlipidemia and diabetes mellitus type 2, myasthenia gravis with previous history of Covid 19 pneumonia and one-month hospitalization from June to July at [facility] with subsequent chronic hypoxia requiring 1 L nasal cannula, who presented to [facility] emergency department on Jan 26 2021 with a complaint of 4 episodes of maroon- colored stool. After these episodes of the patient was noted to become lightheaded, short of breath. Patient stated that he had generalized weakness. At his previous hospitalization at [facility] patient was noted to be rather anemic. During this hospital course, patient was found anemic but workup was deferred due to patient's acute disease. Since discharge, his Hgb has a new baseline of around 9. He has had outpatient workup for his anemia with both Heme/Onc (Dr. Hussein) and GI (Dr. Franco), and recently had an EGD and colonoscopy done on 01/11/2021 for iron deficiency anemia. Colonoscopy removed three semi-sessile polyps (measuring 4-9mm) at hepatic flexure and ascending colon, biopsy showing fragments of tubular adenoma. EGD found a 2.5 cm duodenal mass at the junction between first and second portions of the duodenum, biopsy showing superficial fragments of duodenal mucosa with reactive atypia without evidence of high grade dysplasia. Due to high level of suspicion, Dr. Franco performed another EGD on patient yesterday to repeat biopsy of the duodenal mass. Patient tolerated the procedure well but subsequently developed 4 episodes of maroon colored hematochezia this morning. After the bleeding episodes, patient reported he felt weak, lightheaded, short of breath with nausea and chills, prompting him to present to ED for evaluation via EMS. It was noted by EMS that pt was hypotensive (82/50) during transport to ED. Patient denied previous experience with hematochezia before. He was at first d/c with Eliquis in 07/2020 as treatment for COVID but regimen was switched to 81mg ASA s/p endoscopies on 01/11/21. Patient denied any other anticoagulation regimen. In addition, patient denied recent fever, vomiting, hematemesis, CP, cough with sputum, weight loss but noted chronic occasional diarrhea of 1-2 episodes weekly. He denied family history of cancer. On presentation in the emergency department the patient was vitally stable, although orthostatic positive.. He was given 1 unit of packed red blood cells and admitted to hospitalist service for further evaluation management HOSPITAL COURSE: On admission the patient's hemoglobin was trended. After receiving 1 unit of packed red blood cells. His hemoglobin actually dropped to 7.1. Patient noted that time another episode of maroon-colored stools. He was transfused an additional 2 units., It was felt that the patient's bleeding was likely secondary to a bleeding area from the biopsy site. This patient just had an EGD completed the day before admission and a colonoscopy approximately 2 weeks ago. It was unlikely that there was any new source of bleeding. Patient's hemoglobin was monitored and he was transfused as needed. The patient's third day of hospitalization the patient had no further episodes of bleeding and he was discharged. Patient was instructed to discontinue his aspirin. He was instructed to follow-up with his primary care physician in 5 days for repeat CBC and to follow-up with his tray line worker for pathology results from his biopsy. DISCHARGE MEDICATIONS: Please see below. ALLERGIES: Please see below. PHYSICAL EXAMINATION ON DISCHARGE: VITAL SIGNS: Please see below. GENERAL: Awake, alert oriented, appears in no acute distress, sitting up comfortably in bed HEENT: Atraumatic normocephalic. Eyes nonicteric. Trachea is midline. Mucous membranes are pink and moist NECK:. No palpable cervical, axillary or supraclavicular lymphadenopathy CARDIOVASCULAR EXAMINATION: Normal S1, S2, regular rate and rhythm. No clicks rubs or murmurs RESPIRATORY EXAMINATION:. Clear breath sounds bilaterally somewhat diminished, symmetric chest expansion. No wheezes rhonchi or rales ABDOMINAL EXAMINATION: Obese, soft nondistended, nontender. Normoactive bowel sounds throughout EXTREMITIES:. Bilateral 2+ pitting edema. Full equal pulses bilateral upper and lower extremities. Left leg wound currently bandaged SKIN:. Left leg wound bandage. No other rashes or lesions NEUROLOGICAL EXAMINATION:. No focal neurological deficits PSYCHIATRIC EXAMINATION:. Mood and Affect appear appropriate LABORATORY DATA: Please see below. PROGNOSIS: Fair ACTIVITY: [As tolerated]. DIET: As Tolerated DISCHARGE PLAN: Patient is to be discharged home. He is to follow-up with his primary care physician in 5-10 days for repeat CBC. He is to stop his aspirin. Additionally, patient is to follow-up with his tray line worker, Dr. Franco for his pathology results. The patient was instructed to return to the emergency department if he has any further bleeding. DISPOSITION: 01 Home, Self-Care. DISCHARGE INSTRUCTIONS: 1. Stop aspirin 2. Follow-up with primary care physician in 5 to 10 days 3. Follow-up with Dr. Franco of Gastroenterology for pathology results of biopsy . DISCHARGE CONDITION: [Stable]. TIME SPENT ON DISCHARGE: Greater than 35 minutes. Vital Signs/I&Os Vital Signs Date Time Temp Pulse Resp B/P (MAP) Pulse Ox O2 Delivery O2 Flow Rate FiO2 01/28/21 14:00 98.2 75 20 131/72 (91) 98 Nasal Cannula 1.0 I&O- Last 24 Hours up to 6 AM 01/28/21 06:00 Intake Total 2000 ml Output Total 1000 ml Balance 1000 ml Laboratory Data Labs 24H Laboratory Tests 2 01/27/21 20:30: Bedside Glucose (Misc Panel) 171H 01/28/21 06:01: Nucleated Red Blood Cells % (auto) 0.2H, Anion Gap 6L, Glomerular Filtration Rate > 60.0, Calcium Level 8.0L 01/28/21 11:37: Bedside Glucose (Misc Panel) 274H 01/28/21 12:47: Nucleated Red Blood Cells % (auto) 0.0 CBC/BMP Laboratory Tests 01/28/21 06:01 01/28/21 12:47 FSBS Laboratory Tests Test 01/27/21 20:30 01/28/21 11:37 Range/Units Bedside Glucose (Misc Panel) 171 274 70-105 MG/DL Discharge Medications Scheduled Ascorbic Acid (Vitamin C) 500 Mg Capsule, 500 MG PO DAILY, (Reported) Atorvastatin Calcium (Atorvastatin Calcium) 40 Mg Tablet, 40 MG PO QPM, (Reported) WITH SUPPER Atovaquone (Atovaquone) 750 Mg/5 Ml Oral.susp, 750 MG PO QPM, (Reported) WITH SUPPER Collagenase Clostridium Hist. (Santyl) 30 Gm Oint...g., 1 DOSE TOP DAILY, (Reported) APPLY LAYER TO WOUND Dulaglutide (Trulicity) 1.5 Mg/0.5 Ml Pen.injctr, 1.5 MG SC 1XWK, (Reported) MONDAYS Ferrous Sulfate (Iron) 325 Mg Tablet, 325 MG PO 3XW, (Reported) , , MON Glimepiride (Glimepiride) 2 Mg Tablet, 2 MG PO DAILY, (Reported) @ NOON Gluc Moise/Chondro Moise A/Vit C/Mn (Glucosamine-Chondroitin Cap) 1 Each Capsule, 1 CAP PO BID, (Reported) Irbesartan (Irbesartan) 150 Mg Tablet, 150 MG PO DAILY, (Reported) @ NOON Lidocaine HCl/Benzyl Alcohol (Salonpas Lidocain Pls 4-10% Cr) 4 %-10 % Cream..g., 1 PATCH TOP QAM, (Reported) APPLY TO BACK Metformin HCl (Metformin HCl) 500 Mg Tablet, 1,000 MG PO BID, (Reported) [place]-3 Fatty Acids/Fish Oil (Fish Oil 1,000 mg Capsule) 1 Each Capsule, 1,000 MG PO DAILY, (Reported) Omeprazole (Omeprazole) 20 Mg Capsule.dr, 1 CAP PO DAILY Prednisone (Prednisone) 10 Mg Tablet, 25 MG PO DAILY, (Reported) Pyridostigmine [place] (Pyridostigmine [place]) 60 Mg Tablet, 60 MG PO TID, (Reported) Sucralfate (Sucralfate) 1 Gm/10 Ml Oral.susp, 1 GM PO BID@0730,1730 Zinc (Zinc) 50 Mg Tablet, 50 MG PO DAILY, (Reported) Scheduled PRN Amitriptyline HCl (Amitriptyline HCl) 25 Mg Tablet, 25 MG PO QHS PRN for SLEEP, (Reported) Loperamide HCl (Loperamide) 2 Mg Capsule, 4 MG PO Q6H PRN for AFTER EACH LOOSE STOOL, (Reported) Tramadol HCl (Tramadol HCl) 50 Mg Tablet, 100 MG PO Q6H PRN for PAIN, (Reported) Allergies Coded Allergies: sulfamethoxazole (Verified Allergy, Severe, face and lip swelling, 01/21/21) trimethoprim (Verified Allergy, Severe, lip swelling, 01/21/21) ampicillin (Verified Allergy, Mild, body rash, 01/21/21) clindamycin (Verified Allergy, Mild, body rash, 01/21/21) silver sulfadiazine (Verified Allergy, Mild, irritation,pain, reddness, 01/21/21) tolnaftate (Verified Allergy, Mild, body rash, 01/21/21) KEYSHA CUMMINS DO January 28, 2021 18:40
[2021-01-28] MEDS ORDERED: METF10004 PO (22:08)
[2021-01-28] MEDS ORDERED: GLIM1TAB4 PO (22:08)
[2021-01-28] MEDS ORDERED: SUCR1ORA2 PO (22:08)
[2021-01-28] MEDS ORDERED: LIDO5TD TOP (22:08)
[2021-01-28] MEDS ORDERED: OMEP1CAP73 PO (22:08)
[2021-01-28] MEDS ORDERED: PATIENT COMMENT (22:09)
== END 2021-01-28 15:30 | disposition home or self-care (01) ==
LOC: M ED 09:28 → M ED INP 12:13 → UNDOADMIN 12:50 → ENRESERV 16:18 → M MS5PR 18:20
PROVIDERS: ADMIT Internal Medicine; ATTEND Internal Medicine
DX: D64.9 Anemia, unspecified (principal); K92.2 Gastrointestinal hemorrhage, unspecified; Z98.890 Other specified postprocedural states; R09.02 Hypoxemia; Z86.16 Personal history of COVID-19; K31.9 Disease of stomach and duodenum, unspecified; D72.829 Elevated white blood cell count, unspecified; I49.2 Junctional premature depolarization; E11.9 Type 2 diabetes mellitus without complications; I10 Essential (primary) hypertension; E78.5 Hyperlipidemia, unspecified; G70.00 Myasthenia gravis without (acute) exacerbation; M61.461 Other calcification of muscle, right lower leg; Z99.81 Dependence on supplemental oxygen; I95.9 Hypotension, unspecified; R53.1 Weakness; R42 Dizziness and giddiness; R06.02 Shortness of breath; L88 Pyoderma gangrenosum; M19.90 Unspecified osteoarthritis, unspecified site; Z79.899 Other long term (current) drug therapy; Z79.84 Long term (current) use of oral hypoglycemic drugs; Z79.52 Long term (current) use of systemic steroids; Z88.2 Allergy status to sulfonamides; Z88.1 Allergy status to other antibiotic agents

== ENCOUNTER 2021-01-28 20:01 | Inpatient (IN) | payer MEDICARE, BC, OTHER ==
[~2021-01-28] VITALS: Ht 180.3 cm; Wt 105.1 kg
[~2021-01-28 20:01] MED LIST changes: +GLIM2TAB4 PO; +IRON65TA2 PO; +LOPE2CAP PO; +OMEP-218 PO; +SUCR1ORA PO; +TRUL0.5I SC
[2021-01-28 21:15] LABS: BASO % 0.2 % (0.0-1.0); EOS % 0.1 % (0.0-3.0); HEMATOCRIT 22.3 % (42.0-52.0); LYMPH # 1.2 10^3/uL (1.5-5.0); LYMPH % 8.9 % (24.0-44.0); MEAN CORPUSCULAR HEMOGLOBIN 24.9 pg (27.0-33.0); MEAN CORPUSCULAR VOLUME 82.9 fl (80.0-96.0); MONO # 1.7 10^3/uL (0.0-0.8); NEUTROPHILS % 75.9 % (36.0-66.0); PLATELET COUNT, AUTOMATED 223 10^3/uL (150-450); RED BLOOD COUNT 2.69 10^6/uL (4.30-6.10)
[2021-01-28 21:24] LABS: INR 1.1; PROTHROMBIN TIME 14.4 SECONDS (12.5-14.3)
[2021-01-28 21:29] LABS: HEMOGLOBIN 6.7 g/dl (13.5-17.5); WHITE BLOOD COUNT 13.2 10^3/uL (4.0-10.0)
[2021-01-28 21:30] LABS: MONO % 12.7 % (2.0-8.0)
[2021-01-28] MEDS ORDERED: NS 1,000 ML IV ONE (21:45)
[2021-01-28] MEDS ORDERED: PANTOPRAZOLE 40MG VIAL (C9113 PER 1) IV ONE (21:45)
[2021-01-28 21:49] LABS: BLOOD UREA NITROGEN 39 MG/DL (7-18); CALCIUM LEVEL 7.5 MG/DL (8.5-10.1); CARBON DIOXIDE LEVEL 20 MEQ/L (21-32); CHLORIDE LEVEL 108 MEQ/L (98-107); CK-MB VALUE MASS 1.5 NG/ML (<3.6); CPK CREATINE PHOSPHOKINASE 71 U/L (39-308); CREATININE FOR GFR 1.01 MG/DL (0.70-1.30); ETHYL ALCOHOL (ETHANOL) < 0.003 % (0.000-0.010); FREE T4 0.97 NG/DL (0.76-1.46); GLOMERULAR FILTRATION RATE > 60.0 (>56); GLUCOSE, FASTING 339 MG/DL (70-100); MAGNESIUM LEVEL 1.6 MG/DL (1.8-2.4); MB/CK RELATIVE INDEX 2.11 (< OR =4); POTASSIUM SERUM 4.4 MEQ/L (3.5-5.1); SODIUM LEVEL 140 MEQ/L (136-145); TROPONIN I 0.03 NG/ML (< 0.10)
--- NOTE | 2021-01-28 22:07 | REPVR ---
PROCEDURE INFORMATION: Exam: CT Head Without Contrast Exam date and time: 01/28/2021 8:58 PM Age: 60 years old Clinical indication: Syncope and collapse TECHNIQUE: Imaging protocol: Computed tomography of the head without contrast. Radiation optimization: All CT scans at this facility use at least one of these dose optimization techniques: automated exposure control; mA and/or kV adjustment per patient size (includes targeted exams where dose is matched to clinical indication); or iterative reconstruction. COMPARISON: No relevant prior studies available. FINDINGS: Brain: There is no evidence of intracranial bleed. The roblero-white differentiation appears preserved. There is no evidence of mass effect. Cerebral ventricles: Normal ventricles. Bones/joints: There is no evidence of fracture. Paranasal sinuses: Clear paranasal sinuses. Mastoid air cells: Visualized mastoid air cells are well aerated. Orbital cavity: Symmetric orbits. Vasculature: There is calcification of the carotid siphon bilaterally consistent with atherosclerotic changes. Soft tissues: Unremarkable. IMPRESSION: Normal appearing CT scan of the brain. Electronically signed by: Manan See On 01/28/2021 22:07:07 PM
[2021-01-28] MEDS ORDERED: LIDO5TD TOP (22:08)
[2021-01-28] MEDS ORDERED: SUCR1ORA2 PO (22:08)
[2021-01-28] MEDS ORDERED: OMEP1CAP73 PO (22:08)
[2021-01-28] MEDS ORDERED: METF10004 PO (22:08)
[2021-01-28] MEDS ORDERED: GLIM1TAB4 PO (22:08)
[2021-01-28] MEDS ORDERED: PATIENT COMMENT (22:09)
[2021-01-28] MEDS ORDERED: DEXTROSE 50% 50 ML SYRINGE IV PRN (22:30)
[2021-01-28] MEDS ORDERED: GLUCAGON INJ 1MG VIAL SC PRN (22:30)
[2021-01-28] MEDS ORDERED: GLUCOSE 4GM CHEW TABLET PO PRN (22:30)
[2021-01-28 22:35] VITALS: BP 114/64
--- NOTE | 2021-01-28 22:52 | HPEPDOC ---
[facility] Medical History & Physical Date of Admission January 28, 2021 Date of Service: January 28, 2021 Attending Physician: THOMAS MUNGUIA MD History and Physical CHIEF COMPLAINT: lightheadedness, melena HISTORY OF PRESENT ILLNESS: Salvador Aguillon is a 60 year old male who presented to the ED today after 1 episode of maroon colored stool since hospital discharge with worsening lightheadedness and shortness of breath. He was recently admitted to the hospital for GI bleeding after EGD and biopsy of duodenal mass. Patient states he was feeling well this morning and when he first returned home from the hospital. His had applied his direct oxygen machine to the wound on his left leg. He states he then felt the need to have a BM and asked his to come help remove the machine. When walking to the bathroom, the patient felt lightheaded and short of breath. He state he did not make it to the bathroom but instead brought himself down to the flood in the kitchen. He reports a dark red bowel movement at that time. called EMS and the patient was brought to the ED. He denies current abdominal pain. He reports some intermittent nausea without vomiting. PAST MEDICAL HISTORY: Diabetes mellitus COVID 19 infection with hospital admission (07/18-08/18 at [facility], currently on 1L/min O2 at home) Hypertension Myasthenia Gravis Osteoarthritis Hypercholesterolemia Heterotopic Ossification of bilateral hips Pyoderma Gangrenosum dx 2009 Calciphylaxis Chronic Anemia PAST SURGICAL HISTORY: Thymectomy 05/30/1984 [place] teeth extraction due to infeciton 12/22/1986 Fusion right great toe and MTP 02/18/1999 Left ankle fusion 1998 Bilateral eye cataract removals 2003 YAG Capsulotomy bilateral eyes 2004 Total right hip replacement 2008 Total left shoulder replacement 2008 Total right shoulder replacement 2010 Umbilical/ventral hernia repair 2010 Right carpel tunnel & Guyon's tunnel release 2010 Right foot and ankle reconstruction 2011 Left carpel tunnel release 2012 Left total hip replacement 2012 Partial right fibula removal with abscess I&D 2012 Right olecranon bursa excision 2013 Left ankle osteotomy and fusion 2014 Lumbar decompression 2015 SOCIAL HISTORY: Never smoker. Drinks 3-4 beers weekly. 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 MOTHER: alive with hx of thyroid disease and rheumatoid issues SIBLINGS: 1 brother, 4 sisters, 1 sister with hx of psoriasis and psoriatic arthritis, 2 sisters with hx of multiple sclerosis 2 SONS: sons have Legg Perthes disease ALLERGIES: Please see below. REVIEW OF SYSTEMS: CONSTITUTIONAL: Denies fevers, chills, night sweats, fatigue, unexpected change in weight. HEENT: Denies change in vision, change in hearing. CARDIOVASCULAR: Denies chest pain, palpitations. RESPIRATORY: Denies dyspnea, cough, wheezing. GASTROINTESTINAL: Per HPI. GENITOURINARY: Denies dysuria, urinary frequency, urinary urgency. SKIN: Denies new rash, lesions, yellow skin, bruising. MUSCULOSKELETAL: Denies new joint pain or muscle aches. NEUROLOGICAL: Denies headache, dizziness, focal weakness. HEMATOLOGICAL: Denies bruising, excessive bleeding, petechiae PSYCHIATRIC: Denies change in mood. HOME MEDICATIONS: Please see below. PHYSICAL EXAMINATION: VITAL SIGNS: See below GENERAL: Alert, appears uncomfortable in bed in mild distress HEENT: Normocephalic, atraumatic, sclera anicteric, moist mucous membranes NECK: Supple, trachea midline, no lymphadenopathy CARDIOVASCULAR: Regular rate and rhythm, normal S1 and S2. No murmurs, rubs, or gallops RESPIRATORY: Clear to auscultation bilaterally with equal air entry bilaterally. No wheezing, rhonchi, or rales. ABDOMEN: Soft, nondistended, bowel sounds present, obese with mild tenderness to palpation of the lower quadrants bilaterally, no rebound tenderness, guarding, or rigidity. EXTREMITIES: Bilateral 2+ pitting edema. Pulses 2+/4 in bilateral upper and lower extremities SKIN: Left leg wound bandage present. No additional rash appreciated NEUROLOGIC: Alert and oriented x3 to person, place and time. No focal deficits appreciated PSYCHIATRIC: Mood and affect appropriate LABORATORY DATA: See below. IMAGING: (per radiologist impression) - Head CT Normal appearing CT scan of the brain. - CXR No acute findings. MICROBIOLOGY: Please see below. ASSESSMENT: 60 year old male with PMHx of HTN, HLD, DM2, Myasthenia gravis, and COVID19 infection, presenting to the ED today after 1 episode of maroon colored stool since hospital discharge earlier today, found to have Hg 6.7 in the ED, admitted for blood transfusion, treatment of acute GI bleed, and GI evaluation for repeat EGD PLAN: # Acute on chronic anemia 2/2 GI bleed - Suspected 2/2 hemorrhage of duodenal biopsy site (EGD done 01/25) - Hg 6.7 in the ED, baseline at 9 given chronic iron deficiency anemia - 2 units PRBCs ordered in ED, recheck H/H after transfusion - NPO diet. Will start on pantoprazole gtt and octreotide gtt - GI/Dr. Jaramillo consulted, plan for EGD likely tomorrow - Hold ASA, pt not on other anticoagulants - Fall precaution. Monitor on telemetry. # Leukocytosis - WBC 13.2, likely 2/2 chronic steroid regimen - No signs of acute infection at this time - monitor CBC daily # Duodenal mass s/p biopsy - Found on EGD for iron deficiency anemia. Initial biopsy showed "reactive atypia without evidence of high grade dysplasia" - Repeat biopsy on 01/[address] Franco due to high suspicion - pt admitted to [facility] 01/26-01/28 due to post-procedural GI bleeding - patient to follow up outpatient with Dr. Franco for biopsy results # Calciphylaxis of leg - Patient has been followed by wound care (Dr. Lott) and receives weekly debridement every Monday # Iron deficiency anemia - hold home meds while NPO. # Myasthenia Gravis - hold home meds while NPO. # HTN - hold home meds while NPO. # HLD - hold home meds while NPO. # DM2 - hold home meds DVT prophylaxis: Teds and SCDs. No medical prophylaxis due to GI bleed Disposition: admitted to ICU pending clinical improvement, GI evaluation for possible repeat EGD Vital Signs Vital Signs Date Time Temp Pulse Resp B/P (MAP) Pulse Ox O2 Delivery O2 Flow Rate FiO2 01/28/21 20:46 92 100 Nasal Cannula 4.0 01/28/21 20:17 112/58 (76) 01/28/21 20:16 18 01/28/21 20:08 98.3 Laboratory Data Labs 24H Laboratory Tests 2 01/28/21 21:01: Immature Granulocyte % (Auto) 2.2, Neutrophils (%) (Auto) 75.9H, Lymphocytes (%) (Auto) 8.9L, Monocytes (%) (Auto) 12.7H, Eosinophils (%) (Auto) 0.1, Basophils (%) (Auto) 0.2, Neutrophils # (Auto) 10.0H, Lymphocytes # (Auto) 1.2L, Monocytes # (Auto) 1.7H, Eosinophils # (Auto) 0.0, Basophils # (Auto) 0.0, Nucleated Red Blood Cells % (auto) 0.5H, Prothrombin Time 14.4H, Prothromb Time International Ratio 1.10, Activated Partial Thromboplast Time 20.0L, Anion Gap 12, Glomerular Filtration Rate > 60.0, Calcium Level 7.5L, Magnesium Level 1.6L, Total Creatine Kinase 71, Creatine Kinase MB 1.5, Creatine Kinase MB Relative Index 2.11, Troponin I 0.03, Thyroid Stimulating Hormone (TSH) 1.830, Free Thyroxine 0.97, Ethyl Alcohol Level < 0.003 01/28/21 21:06: Bedside Glucose (Misc Panel) 388H CBC/BMP Laboratory Tests 01/28/21 21:01 Home Medications Scheduled Ascorbic Acid (Vitamin C) 500 Mg Capsule, 500 MG PO DAILY Atorvastatin Calcium (Atorvastatin Calcium) 40 Mg Tablet, 40 MG PO QPM WITH SUPPER Atovaquone (Atovaquone) 750 Mg/5 Ml Oral.susp, 750 MG PO QPM WITH SUPPER Collagenase Clostridium Hist. (Santyl) 30 Gm Oint...g., 1 DOSE TOP DAILY APPLY LAYER TO WOUND Dulaglutide (Trulicity) 1.5 Mg/0.5 Ml Pen.injctr, 1.5 MG SC 1XWK MONDAYS Ferrous Sulfate (Iron) 325 Mg Tablet, 325 MG PO 3XW TUES, TH, SAT Glimepiride (Glimepiride) 1 Mg Tablet, 2 MG PO DAILY @ NOON Gluc Moise/Chondro Moise A/Vit C/Mn (Glucosamine-Chondroitin Cap) 1 Each Capsule, 1 CAP PO BID Irbesartan (Irbesartan) 150 Mg Tablet, 150 MG PO DAILY @ NOON Lidocaine (Lidocaine) 5% Adh..patch, 1 PATCH TOP DAILY APPLIES TO LOWER BACK Metformin HCl (Metformin HCl) 1,000 Mg Tablet, 1,000 MG PO BID [place]-3 Fatty Acids/Fish Oil (Fish Oil 1,000 mg Capsule) 1 Each Capsule, 1,000 MG PO DAILY Omeprazole (Omeprazole) 20 Mg Capsule.dr, 20 MG PO DAILY HAS NOT STARTED YET Prednisone (Prednisone) 10 Mg Tablet, 25 MG PO DAILY Pyridostigmine [place] (Pyridostigmine [place]) 60 Mg Tablet, 60 MG PO TID Sucralfate (Sucralfate) 1 Gm/10 Ml Oral.susp, 1 GM PO BID Zinc (Zinc) 50 Mg Tablet, 50 MG PO DAILY Scheduled PRN Amitriptyline HCl (Amitriptyline HCl) 25 Mg Tablet, 25 MG PO QHS PRN for INSOMNIA Loperamide HCl (Loperamide) 2 Mg Capsule, 4 MG PO Q6H PRN for AFTER EACH LOOSE STOOL Tramadol HCl (Tramadol HCl) 50 Mg Tablet, 100 MG PO Q6H PRN for PAIN Allergies Coded Allergies: sulfamethoxazole (Verified Allergy, Severe, face and lip swelling, 01/21/21) trimethoprim (Verified Allergy, Severe, lip swelling, 01/21/21) ampicillin (Verified Allergy, Mild, body rash, 01/21/21) clindamycin (Verified Allergy, Mild, body rash, 01/21/21) silver sulfadiazine (Verified Allergy, Mild, irritation,pain, reddness, ) tolnaftate (Verified Allergy, Mild, body rash, 01/21/21) GME ATTESTATION GME ATTESTATION My faculty preceptor for this patient encounter was physically present during the encounter and was fully available. All aspects of the patient interview, examination, medical decision making process, and medical care plan development were reviewed and approved by the faculty preceptor. The faculty preceptor is aware and concurs with the plan as stated in the body of this note and will attest to such by his/her cosignature. ATTENDING NOTE IVikki, have independently examined this patient and performed my own physical exam, as well as reviewed the documentation and edited where necessary. I have discussed in detail with the resident / student the findings and plan of treatment as documented by the resident / student and edited their note. I agree with their findings and treatment plan and have edited their documentation. I w ill continue to follow the patient during this hospital stay. NICHOL FARMER D.O. January 28, 2021 22:52 THOMAS MUNGUIA MD February 01, 2021 02:24
[2021-01-28 22:53] VITALS: BP 135/61
[2021-01-28] MEDS: NS 1,000 ML IV SCH (23:13)
--- NOTE | 2021-01-28 23:13 | REPVR ---
PROCEDURE INFORMATION: Exam: XR Chest Exam date and time: 01/28/2021 9:31 PM Age: 60 years old Clinical indication: Other: Syncope/near syncope; Additional info: Syncope/near-syncope TECHNIQUE: Imaging protocol: XR of the chest. Views: 1 view. COMPARISON: DX CHEST, 2 VIEWS - OUTSIDE PRIOR 12/11/2020 12:00 AM FINDINGS: Lungs: Clear. No consolidation. Pleural spaces: Unremarkable. No pleural effusion. No pneumothorax. Heart/Mediastinum: Unremarkable. No cardiomegaly. Bones/joints: Bilateral shoulder arthroplasties. Changes of prior sternotomy. IMPRESSION: No acute findings. Electronically signed by: Matt Ernst On 01/28/2021 23:13:38 PM
[2021-01-28 23:46] VITALS: BP 126/89
[2021-01-28] MEDS: PANTOPRAZOLE SODIUM 40 MG in D5W 50 ML IV SCH (23:57)
[2021-01-29] VITALS (27 sets, daily range): BP systolic 110–146; BP diastolic 54–80
[2021-01-29 00:36] LABS: RSV AMPLIFICATION NEGATIVE (NEGATIVE)
[2021-01-29] MEDS: OCTREOTIDE ACETATE 1,200 MCG in NS 238.8 ML IV SCH (03:50)
[2021-01-29 05:07] LABS: HEMATOCRIT 23.4 % (42.0-52.0); HEMOGLOBIN 7.3 g/dl (13.5-17.5); MEAN CORPUSCULAR HEMOGLOBIN 25.8 pg (27.0-33.0); MEAN CORPUSCULAR HGB CONC 31.2 g/dl (32.0-36.5); MEAN CORPUSCULAR VOLUME 82.7 fl (80.0-96.0); PLATELET COUNT, AUTOMATED 192 10^3/uL (150-450); RED BLOOD COUNT 2.83 10^6/uL (4.30-6.10); WHITE BLOOD COUNT 10.3 10^3/uL (4.0-10.0)
[2021-01-29] MEDS: PANTOPRAZOLE SODIUM 40 MG in D5W 50 ML IV SCH ×4 (05:16→20:03)
[2021-01-29 05:23] LABS: BLOOD UREA NITROGEN 36 MG/DL (7-18); CALCIUM LEVEL 7.5 MG/DL (8.5-10.1); CARBON DIOXIDE LEVEL 25 MEQ/L (21-32); CHLORIDE LEVEL 111 MEQ/L (98-107); CREATININE FOR GFR 0.84 MG/DL (0.70-1.30); GLOMERULAR FILTRATION RATE > 60.0 (>56); GLUCOSE, FASTING 287 MG/DL (70-100); MAGNESIUM LEVEL 1.7 MG/DL (1.8-2.4); POTASSIUM SERUM 3.9 MEQ/L (3.5-5.1); SODIUM LEVEL 143 MEQ/L (136-145)
[2021-01-29] MEDS: NS 1,000 ML IV SCH ×2 (07:25→17:47)
[2021-01-29] MEDS ORDERED: PANTOPRAZOLE 40MG VIAL (C9113 PER 1) IV SCH (09:00)
[2021-01-29] MEDS: LIDOCAINE 5% (LIDODERM) PATCH TOP SCH (09:00)
[2021-01-29] MEDS: IRBESARTAN 150MG TAB PO SCH (09:00)
[2021-01-29] MEDS: ASCORBIC ACID 500 MG TAB PO SCH (09:00)
[2021-01-29] MEDS ORDERED: LOPERAMIDE 2 MG CAPLET PO PRN (10:35)
[2021-01-29] MEDS ORDERED: AMITRIPTYLINE 25MG TABLET PO PRN (10:35)
--- NOTE | 2021-01-29 11:01 | IPNPDOC ---
Text Note Date of Service The patient was seen on 01/29/21. NOTE Subjective: Patient stated that he feels better today, no fever, chills, mal[place] sea, vomiting. Objective: GENERAL APPEARANCE: NAD HEENT: no scleral icterus, no JVD, EOMI CARDIOVASCULAR: S1S2 LUNGS: CTA ABDOMEN: soft & not tender w palpitation, obese MUSCULOSKELETAL: no cyanosis, no swelling INTEGUMENT: no generalized pallor NEUROLOGICAL: cranial nerve function from 2-12 intact intact, follows commands, speech not dysarthric Assessment and plan Patient is 60 years old male with past history of hypertension, hyperlipidemia, diabetes, myasthenia gravis presented hospital with GI bleed. She was found to have hemoglobin 6.7. Acute anemia Secondary to GI bleed most likely after duodenal biopsy site (EGD done 01/25) Patient received 2 units of blood Continue to monitor H&H GI team will proceed with EGD today Nothing by mouth for now. PPI Leukocytosis Improved most likely reactive No any signs of acute infection Duodenal mass s/p biopsy Found on EGD for iron deficiency anemia. Initial biopsy showed "reactive atypia without evidence of high grade dysplasia" Repeat biopsy on 01/[address] Franco due to high suspicion Await pathology result Calciphylaxis of leg Patient has been followed by wound care (Dr. Lott) and receives weekly debridement every Monday Iron deficiency anemia Continue iron supplementation Myasthenia Gravis Continue home meds HTN Blood pressure under control Continue home cardioprotective medications HLD hold home meds while NPO. DM2 hold home meds VS,Fishbone, I+O VS, Fishbone, I+O Laboratory Tests 01/28/21 21:01 01/29/21 04:35 Vital Signs Date Time Temp Pulse Resp B/P (MAP) Pulse Ox O2 Delivery O2 Flow Rate FiO2 01/29/21 08:00 99.8 78 18 135/72 (93) 99 Nasal Cannula 1.0 I&O- Last 24 Hours up to 6 AM 01/29/21 06:00 Intake Total 3692 ml Output Total 1400 ml Balance 2292 ml FERNANDA FIGUEROA DO January 29, 2021 11:01
[2021-01-29 11:46] LABS: HEMATOCRIT 22.2 % (42.0-52.0); HEMOGLOBIN 7.2 g/dl (13.5-17.5)
[2021-01-29] MEDS: SANTYL OINT 30GM TOP SCH (12:00)
[2021-01-29] MEDS: SUCRALFATE SUSP 1GM/10ML UD PO SCH ×2 (15:36→20:11)
[2021-01-29] MEDS ORDERED: GLUCAGON INJ 1MG VIAL As Ordered ONE (16:10)
[2021-01-29] MEDS ORDERED: LIDOCAINE 2% 100MG/5ML SDV (FOR ANES.) As Ordered ONE (16:10)
[2021-01-29] MEDS ORDERED: propofoL 200 MG/20 ML VIAL As Ordered ONE (16:10)
[2021-01-29] MEDS ORDERED: SIMETHICONE 40MG/0.6ML DROPS 30ML As Ordered ONE (16:13)
[2021-01-29] MEDS ORDERED: EPINEPHrine 1MG/10ML SYRINGE 1.5IN As Ordered ONE (16:13)
--- NOTE | 2021-01-29 16:45 | ROOR ---
Patient Name: Salvador Aguillon Procedure Date: 01/29/2021 3:56 PM Date of : 1960 Age: 60 Room: [facility] Gender: Male Note Status: Finalized Procedure: Upper GI endoscopy Indications: Melena, Active gastrointestinal bleeding, Recent gastrointestinal bleeding, 2.5 cm ulcerated duodenal mass/adenoma. s/p biopsy. Pt returns with presumed biopsy site bleed. Providers: Vinicio Franco MD Referring MD: 2. Inpatient 2. Inpatient, María Elena ANDERSON MD Requesting Provider: Medicines: Monitored Anesthesia Care Complications: No immediate complications. Procedure: Pre-Anesthesia Assessment: - The heart rate, respiratory rate, oxygen saturations, blood pressure, adequacy of pulmonary ventilation, and response to care were monitored throughout the procedure. The Endoscope was introduced through the mouth, and advanced to the second part of duodenum. The upper GI endoscopy was accomplished without difficulty. The patient tolerated the procedure well. Findings: A medium-sized (2.5 cm) ulcerated mass with bleeding was found in the proximal second portion of the duodenum. Area was successfully injected with 9 mL of a 1:10,000 solution of epinephrine for hemostasis. The exam was otherwise without abnormality. Impression: - 2.5 cm ulcerated mass in the proximal second portion of the duodenum (at the level of the papilla, but on opposite wall). There is minimal ooze of blood from the crater of the mass, but no distinct bleeder is seen. The area was injected with epinephrine with good blanching and hemostasis. - The examination was otherwise normal. - No specimens collected. Recommendation: - CT A/P today/tomorrow to assess proximal second portion duodenal mass. - Observe patient's clinical course. Would monitor patient for next 3 days as inpatient. Clear liquids are OK. If acutely rebleeding, then suggest transfer to [facility] for surgical management. Location of this lesion is likely in the territory of a hepatobiliary surgeon. Keep on PPI (IV or po) Procedure Code(s): --- Professional --- 66560, Esophagogastroduodenoscopy, flexible, transoral; with control of bleeding, any method Diagnosis Code(s): --- Professional --- K92.2, Gastrointestinal hemorrhage, unspecified K92.1, Melena (includes Hematochezia) K31.89, Other diseases of stomach and duodenum CPT copyright 2019 [employer]. All rights reserved. The codes documented in this report are preliminary and upon powdered sugar supervisor review may be revised to meet current compliance requirements. Vinicio Franco MD Vinicio Franco MD 01/29/2021 4:44:24 PM Electronically signed by Vinicio Franco MD Number of Addenda: 0 Note Initiated On: 01/29/2021 3:56 PM Estimated Blood Loss: Estimated blood loss: none.
[2021-01-29 17:14] LABS: HEMATOCRIT 21.1 % (42.0-52.0)
[2021-01-29 17:18] LABS: HEMOGLOBIN 6.8 g/dl (13.5-17.5)
[2021-01-29] MEDS: PYRIDOSTIGMINE 60 MG TAB PO SCH ×2 (17:46→20:11)
[2021-01-29] MEDS: predniSONE 20 MG TAB PO SCH (17:46)
[2021-01-29] MEDS: predniSONE 5 MG TAB PO SCH (17:46)
[2021-01-29] MEDS: ATOVAQUONE SUSP 750MG/5ML 210 ML BTL PO SCH (17:47)
[2021-01-29] MEDS ORDERED: GLUCOSE 4GM CHEW TABLET PO PRN (18:30)
[2021-01-29] MEDS ORDERED: GLUCAGON INJ 1MG VIAL SC PRN (18:30)
[2021-01-29] MEDS ORDERED: HumaLOG INSULIN (NovoLOG) PER UNIT SC SCH (18:30)
[2021-01-29] MEDS ORDERED: DEXTROSE 50% 50 ML SYRINGE IV PRN (18:30)
--- NOTE | 2021-01-29 18:37 | ECGEPIP ---
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
[2021-01-29] MEDS: HumaLOG INSULIN (NovoLOG) PER UNIT SC SCH (20:03)
[2021-01-29] MEDS: traMADol 50 MG TAB PO PRN (20:04)
[2021-01-29] MEDS: ATORVASTATIN 20 MG TAB PO SCH (20:12)
[2021-01-29] MEDS: **NOTE PATIENT COMMENT** MISC XX SCH (20:13)
[2021-01-29] MEDS: LEVEMIR (INSULIN DETEMIR) 1 UNITS/0.01ML SC SCH (20:13)
[2021-01-29 22:40] LABS: HEMATOCRIT 25.9 % (42.0-52.0); HEMOGLOBIN 8.6 g/dl (13.5-17.5)
[2021-01-30] VITALS (27 sets, daily range): BP systolic 107–139; BP diastolic 64–90
[2021-01-30] MEDS: PANTOPRAZOLE SODIUM 40 MG in D5W 50 ML IV SCH ×5 (00:41→23:15)
[2021-01-30] MEDS: HumaLOG INSULIN (NovoLOG) PER UNIT SC SCH ×4 (00:44→17:48)
[2021-01-30] MEDS: OCTREOTIDE ACETATE 1,200 MCG in NS 238.8 ML IV SCH (03:57)
[2021-01-30] MEDS: NS 1,000 ML IV SCH ×2 (03:57→14:17)
[2021-01-30 05:25] LABS: BASO # 0.1 10^3/uL (0.0-0.2); BASO % 0.4 % (0.0-1.0); EOS # 0.1 10^3/uL (0.0-0.5); EOS % 0.5 % (0.0-3.0); HEMOGLOBIN 9.4 g/dl (13.5-17.5); LYMPH # 1.1 10^3/uL (1.5-5.0); MEAN CORPUSCULAR HEMOGLOBIN 27.6 pg (27.0-33.0); MEAN CORPUSCULAR HGB CONC 32.4 g/dl (32.0-36.5); MEAN CORPUSCULAR VOLUME 85.3 fl (80.0-96.0); MONO # 1.5 10^3/uL (0.0-0.8); MONO % 11.9 % (2.0-8.0); NEUTROPHILS # 9.4 10^3/uL (1.5-8.5); NEUTROPHILS % 76.5 % (36.0-66.0); PLATELET COUNT, AUTOMATED 142 10^3/uL (150-450)
[2021-01-30 05:26] LABS: HEMATOCRIT 28.8 % (42.0-52.0); HEMOGLOBIN 9.3 g/dl (13.5-17.5); WHITE BLOOD COUNT 12.2 10^3/uL (4.0-10.0)
[2021-01-30 05:54] LABS: ALBUMIN 2.1 GM/DL (3.2-5.2); ALT/SGPT 21 U/L (12-78); BILIRUBIN,TOTAL 0.5 MG/DL (0.2-1.0); BLOOD UREA NITROGEN 21 MG/DL (7-18); CALCIUM LEVEL 6.7 MG/DL (8.5-10.1); CARBON DIOXIDE LEVEL 27 MEQ/L (21-32); CHLORIDE LEVEL 112 MEQ/L (98-107); CREATININE FOR GFR 0.64 MG/DL (0.70-1.30); GLOMERULAR FILTRATION RATE > 60.0 (>56); GLUCOSE, FASTING 155 MG/DL (70-100); MAGNESIUM LEVEL 1.8 MG/DL (1.8-2.4); SODIUM LEVEL 143 MEQ/L (136-145); TOTAL PROTEIN 3.8 GM/DL (6.4-8.2)
[2021-01-30] MEDS: traMADol 50 MG TAB PO PRN (08:55)
[2021-01-30] MEDS: SUCRALFATE SUSP 1GM/10ML UD PO SCH ×2 (08:55→20:28)
[2021-01-30] MEDS: PYRIDOSTIGMINE 60 MG TAB PO SCH ×3 (08:56→20:28)
[2021-01-30] MEDS: predniSONE 5 MG TAB PO SCH (08:56)
[2021-01-30] MEDS: predniSONE 20 MG TAB PO SCH (08:56)
[2021-01-30] MEDS: IRBESARTAN 150MG TAB PO SCH (08:56)
[2021-01-30] MEDS: ASCORBIC ACID 500 MG TAB PO SCH (08:56)
[2021-01-30] MEDS: LEVEMIR (INSULIN DETEMIR) 1 UNITS/0.01ML SC SCH ×2 (08:57→20:28)
[2021-01-30] MEDS: LIDOCAINE 5% (LIDODERM) PATCH TOP SCH (08:57)
[2021-01-30] MEDS: SANTYL OINT 30GM TOP SCH (08:58)
[2021-01-30] MEDS ORDERED: FERROUS SULFATE 325MG TAB PO SCH (09:00)
--- NOTE | 2021-01-30 10:45 | IPNPDOC ---
Text Note Date of Service The patient was seen on 01/30/21. NOTE Subjective: Patient stated that he feels better today. Overnight he had a bowel movement with black stool. No abdominal pain, no nausea or vomiting Objective: GENERAL APPEARANCE: NAD HEENT: no scleral icterus, no JVD, EOMI CARDIOVASCULAR: S1S2 LUNGS: CTA ABDOMEN: soft & not tender w palpitation, obese MUSCULOSKELETAL: no cyanosis, no swelling INTEGUMENT: no generalized pallor NEUROLOGICAL: cranial nerve function from 2-12 intact intact, follows commands, speech not dysarthric Assessment and plan Patient is 60 years old male with past history of hypertension, hyperlipidemia, diabetes, myasthenia gravis presented hospital with GI bleed. She was found to have hemoglobin 6.7. Acute anemia/GI bleed Secondary to GI bleed most likely after duodenal biopsy site (EGD done 01/25) Patient received 5 units, hemoglobin 9.4 today EGD was done yesterday. Patient was found to have a medium-sized (2.5 cm) ulcerated mass with bleeding was found in the proximal second portion of the duodenum. Area was successfully injected with 9 mL of a 1:10,000 solution of epinephrine for hemostasis. If patient continues to bleed he will be transferred to [facility] Clear liquid diet PPI Leukocytosis most likely reactive No any signs of acute infection Duodenal mass s/p biopsy Found on EGD for iron deficiency anemia. Initial biopsy showed "reactive atypia without evidence of high grade dysplasia" Repeat biopsy on 01/[address] 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 Lott) and receives weekly debridement every Monday Iron deficiency anemia Continue iron supplementation Myasthenia Gravis Continue home meds HTN Blood pressure under control Continue home cardioprotective medications HLD Continue statin DM2 Insulin sliding scale Continue clear liquid diet VS,Fishbone, I+O VS, Fishbone, I+O Laboratory Tests 01/29/21 11:05 01/29/21 17:01 01/29/21 22:34 01/30/21 05:14 Vital Signs Date Time Temp Pulse Resp B/P (MAP) Pulse Ox O2 Delivery O2 Flow Rate FiO2 01/30/21 09:25 18 01/30/21 08:56 122/77 01/30/21 06:00 78 94 Room Air 01/30/21 04:00 98.3 01/29/21 19:00 1.0 I&O- Last 24 Hours up to 6 AM 01/30/21 05:59 Intake Total 6692 ml Output Total 3350 ml Balance 3342 ml FERNANDA FIGUEROA DO January 30, 2021 10:44
[2021-01-30 10:49] LABS: HEMATOCRIT 29.5 % (42.0-52.0); HEMOGLOBIN 9.6 g/dl (13.5-17.5)
[2021-01-30 17:03] LABS: HEMATOCRIT 30.6 % (42.0-52.0); HEMOGLOBIN 9.9 g/dl (13.5-17.5)
[2021-01-30] MEDS: ATOVAQUONE SUSP 750MG/5ML 210 ML BTL PO SCH (17:47)
[2021-01-30] MEDS: ATORVASTATIN 20 MG TAB PO SCH (20:28)
[2021-01-30] MEDS: **NOTE PATIENT COMMENT** MISC XX SCH (20:29)
[2021-01-30 22:55] LABS: HEMATOCRIT 28.7 % (42.0-52.0); HEMOGLOBIN 9.1 g/dl (13.5-17.5)
[2021-01-31] VITALS (12 sets, daily range): BP systolic 105–139; BP diastolic 60–83; O2SAT 95
[2021-01-31] MEDS: NS 1,000 ML IV SCH ×3 (00:27→21:00)
[2021-01-31] MEDS: HumaLOG INSULIN (NovoLOG) PER UNIT SC SCH ×5 (00:28→23:54)
[2021-01-31] MEDS: traMADol 50 MG TAB PO PRN ×2 (00:29→09:40)
[2021-01-31] MEDS: PANTOPRAZOLE SODIUM 40 MG in D5W 50 ML IV SCH ×5 (02:33→21:56)
[2021-01-31 06:43] LABS: BASO % 0.3 % (0.0-1.0); EOS # 0.3 10^3/uL (0.0-0.5); EOS % 2.8 % (0.0-3.0); HEMATOCRIT 25.1 % (42.0-52.0); LYMPH # 1.5 10^3/uL (1.5-5.0); LYMPH % 16.3 % (24.0-44.0); MEAN CORPUSCULAR HGB CONC 31.9 g/dl (32.0-36.5); MEAN CORPUSCULAR VOLUME 87.8 fl (80.0-96.0); MONO % 10.8 % (2.0-8.0); NEUTROPHILS # 6.1 10^3/uL (1.5-8.5); NEUTROPHILS % 68.2 % (36.0-66.0); PLATELET COUNT, AUTOMATED 166 10^3/uL (150-450); RED BLOOD COUNT 2.86 10^6/uL (4.30-6.10)
[2021-01-31 07:09] LABS: ALBUMIN 2.1 GM/DL (3.2-5.2); ALT/SGPT 21 U/L (12-78); BILIRUBIN,TOTAL 0.4 MG/DL (0.2-1.0); BLOOD UREA NITROGEN 14 MG/DL (7-18); CALCIUM LEVEL 6.9 MG/DL (8.5-10.1); CARBON DIOXIDE LEVEL 27 MEQ/L (21-32); CHLORIDE LEVEL 111 MEQ/L (98-107); CREATININE FOR GFR 0.71 MG/DL (0.70-1.30); GLOMERULAR FILTRATION RATE > 60.0 (>56); GLUCOSE, FASTING 98 MG/DL (70-100); MAGNESIUM LEVEL 1.8 MG/DL (1.8-2.4); POTASSIUM SERUM 3.6 MEQ/L (3.5-5.1); SODIUM LEVEL 143 MEQ/L (136-145); TOTAL PROTEIN 3.9 GM/DL (6.4-8.2)
[2021-01-31] MEDS: SUCRALFATE SUSP 1GM/10ML UD PO SCH ×2 (09:30→21:55)
[2021-01-31] MEDS: predniSONE 20 MG TAB PO SCH (09:36)
[2021-01-31] MEDS: predniSONE 5 MG TAB PO SCH (09:36)
[2021-01-31] MEDS: PYRIDOSTIGMINE 60 MG TAB PO SCH ×3 (09:36→21:55)
[2021-01-31] MEDS: ASCORBIC ACID 500 MG TAB PO SCH (09:36)
[2021-01-31] MEDS: LIDOCAINE 5% (LIDODERM) PATCH TOP SCH (09:37)
[2021-01-31] MEDS: SANTYL OINT 30GM TOP SCH (09:37)
[2021-01-31] MEDS: LEVEMIR (INSULIN DETEMIR) 1 UNITS/0.01ML SC SCH ×2 (09:37→21:56)
[2021-01-31] MEDS: IRBESARTAN 150MG TAB PO SCH (09:41)
--- NOTE | 2021-01-31 12:04 | DS.PDOC ---
Discharge Summary General Date of Admission January 28, 2021 at 23:29 Date of Discharge 01/31/21 Discharge Summary PROCEDURES PERFORMED DURING STAY: [None]. 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 HISTORY OF PRESENT ILLNESS: Salvador Aguillon is a 60 year old male who presented to the ED today after 1 episode of maroon colored stool since hospital discharge with worsening lightheadedness and shortness of breath. He was recently admitted to the hospital for GI bleeding after EGD and biopsy of duodenal mass. Patient states he was feeling well this morning and when he first returned home from the hospital. His had applied his direct oxygen machine to the wound on his left leg. He states he then felt the need to have a BM and asked his to come help remove the machine. When walking to the bathroom, the patient felt lightheaded and short of breath. He state he did not make it to the bathroom but instead brought himself down to the flood in the kitchen. He reports a dark red bowel movement at that time. called EMS and the patient was brought to the ED. He denies current abdominal pain. He reports some intermittent nausea without vomiting. HOSPITAL COURSE: During hospital stay the following issues addressed Acute anemia/GI bleed Secondary to GI bleed most likely after duodenal biopsy site (EGD done 01/25) During hospital stay patient received Patient received 7 units of blood EGD was done on 01/29/21. Patient was found to have a medium-sized (2.5 cm) ulcerated mass with bleeding was found in the proximal second portion of the duodenum. Area was successfully injected with 9 mL of a 1:10,000 solution of epinephrine for hemostasis. If patient mandy nues to bleed he will be Today hemoglobin dropped to 8.1. from 9.3 GI team recommended transfer the patient to upper facility Clear liquid diet PPI Leukocytosis most likely reactive No any signs of acute infection Duodenal mass s/p biopsy Found on EGD for iron deficiency anemia. 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 Lott) and receives weekly debridement every Monday Iron deficiency anemia Continue iron supplementation Myasthenia Gravis Continue home meds HTN Blood pressure under control Continue home cardioprotective medications HLD Continue statin DM2 Insulin sliding scale Continue clear liquid diet DISCHARGE MEDICATIONS: Please see below. ALLERGIES: Please see below. PHYSICAL EXAMINATION ON DISCHARGE: VITAL SIGNS: Please see below. GENERAL APPEARANCE: NAD HEENT: no scleral icterus, no JVD, EOMI CARDIOVASCULAR: S1S2 LUNGS: CTA ABDOMEN: soft & not tender w palpitation, obese MUSCULOSKELETAL: no cyanosis, no swelling INTEGUMENT: no generalized pallor NEUROLOGICAL: cranial nerve function from 2-12 intact intact, follows commands, speech not dysarthric LABORATORY DATA: Please see below. PROGNOSIS: Fair ACTIVITY: [As tolerated]. DISCHARGE PLAN: Patient will be transferred to [facility] DISPOSITION: . DISCHARGE INSTRUCTIONS: 1. . ITEMS TO FOLLOWUP ON ON OUTPATIENT: 1. . DISCHARGE CONDITION: [Stable]. TIME SPENT ON DISCHARGE:40 minutes. Vital Signs/I&Os Vital Signs Date Time Temp Pulse Resp B/P (MAP) Pulse Ox O2 Delivery O2 Flow Rate FiO2 01/31/21 10:10 20 01/31/21 09:41 144/70 01/31/21 06:00 98.0 56 94 Room Air 01/29/21 19:00 1.0 I&O- Last 24 Hours up to 6 AM 01/31/21 06:00 Intake Total 3980 ml Output Total 1475 ml Balance 2505 ml Laboratory Data Labs 24H Laboratory Tests 2 01/30/21 17:39: Bedside Glucose (Misc Panel) 239H 01/31/21 00:15: Bedside Glucose (Misc Panel) 164H 01/31/21 05:28: Immature Granulocyte % (Auto) 1.6, Neutrophils (%) (Auto) 68.2H, Lymphocytes (%) (Auto) 16.3L, Monocytes (%) (Auto) 10.8H, Eosinophils (%) (Auto) 2.8, Basophils (%) (Auto) 0.3, Neutrophils # (Auto) 6.1, Lymphocytes # (Auto) 1.5, Monocytes # (Auto) 1.0H, Eosinophils # (Auto) 0.3, Basophils # (Auto) 0.0, Nucleated Red Blood Cells % (auto) 0.3H, Anion Gap 5L, Glomerular Filtration Rate > 60.0, Calcium Level 6.9L, Magnesium Level 1.8, Total Bilirubin 0.4, Aspartate Amino Transf (AST/SGOT) 17, Alanine Aminotransferase (ALT/SGPT) 21, Alkaline Phosphatase 36L, Total Protein 3.9L, Albumin 2.1L, Albumin/Globulin Ratio 1.2 01/31/21 06:20: Bedside Glucose (Misc Panel) 107H 01/31/21 11:34: Bedside Glucose (Misc Panel) 161H CBC/BMP Laboratory Tests 01/30/21 16:51 01/30/21 22:49 01/31/21 05:28 FSBS Laboratory Tests Test 01/30/21 17:39 01/31/21 00:15 01/31/21 06:20 01/31/21 11:34 Range/Units Bedside Glucose (Misc Panel) 239 164 107 161 70-105 MG/DL Discharge Medications Scheduled Ascorbic Acid (Vitamin C) 500 Mg Capsule, 500 MG PO DAILY, (Reported) Atorvastatin Calcium (Atorvastatin Calcium) 40 Mg Tablet, 40 MG PO QPM, (Reported) WITH SUPPER Atovaquone (Atovaquone) 750 Mg/5 Ml Oral.susp, 750 MG PO QPM, (Reported) WITH SUPPER Collagenase Clostridium Hist. (Santyl) 30 Gm Oint...g., 1 DOSE TOP DAILY, (Reported) APPLY LAYER TO WOUND Dulaglutide (Trulicity) 1.5 Mg/0.5 Ml Pen.injctr, 1.5 MG SC 1XWK, (Reported) MONDAYS Ferrous Sulfate (Iron) 325 Mg Tablet, 325 MG PO 3XW, (Reported) , , MON Glimepiride (Glimepiride) 1 Mg Tablet, 2 MG PO DAILY, (Reported) @ NOON Gluc Moise/Chondro Moise A/Vit C/Mn (Glucosamine-Chondroitin Cap) 1 Each Capsule, 1 CAP PO BID, (Reported) Irbesartan (Irbesartan) 150 Mg Tablet, 150 MG PO DAILY, (Reported) @ NOON Lidocaine (Lidocaine) 5% Adh..patch, 1 PATCH TOP DAILY, (Reported) APPLIES TO LOWER BACK Metformin HCl (Metformin HCl) 1,000 Mg Tablet, 1,000 MG PO BID, (Reported) [place]-3 Fatty Acids/Fish Oil (Fish Oil 1,000 mg Capsule) 1 Each Capsule, 1,000 MG PO DAILY, (Reported) Omeprazole (Omeprazole) 20 Mg Capsule.dr, 20 MG PO DAILY, (Reported) HAS NOT STARTED YET Prednisone (Prednisone) 10 Mg Tablet, 25 MG PO DAILY, (Reported) Pyridostigmine [place] (Pyridostigmine [place]) 60 Mg Tablet, 60 MG PO TID, (Reported) Sucralfate (Sucralfate) 1 Gm/10 Ml Oral.susp, 1 GM PO BID, (Reported) Zinc (Zinc) 50 Mg Tablet, 50 MG PO DAILY, (Reported) Scheduled PRN Amitriptyline HCl (Amitriptyline HCl) 25 Mg Tablet, 25 MG PO QHS PRN for INSOMNIA, (Reported) Loperamide HCl (Loperamide) 2 Mg Capsule, 4 MG PO Q6H PRN for AFTER EACH LOOSE STOOL, (Reported) Tramadol HCl (Tramadol HCl) 50 Mg Tablet, 100 MG PO Q6H PRN for PAIN, (Reported) Allergies Coded Allergies: sulfamethoxazole (Verified Allergy, Severe, face and lip swelling, 01/21/21) trimethoprim (Verified Allergy, Severe, lip swelling, 01/21/21) ampicillin (Verified Allergy, Mild, body rash, 01/21/21) clindamycin (Verified Allergy, Mild, body rash, 01/21/21) silver sulfadiazine (Verified Allergy, Mild, irritation,pain, reddness, 01/21/21) tolnaftate (Verified Allergy, Mild, body rash, 01/21/21) FERNANDA FIGUEROA DO January 31, 2021 12:04
[2021-01-31] MEDS: ATOVAQUONE SUSP 750MG/5ML 210 ML BTL PO SCH (17:20)
[2021-01-31 19:38] LABS: HEMOGLOBIN 9.7 g/dl (13.5-17.5)
[2021-01-31] MEDS: **NOTE PATIENT COMMENT** MISC XX SCH (21:00)
[2021-01-31] MEDS: ATORVASTATIN 20 MG TAB PO SCH (21:55)
[2021-02-01 01:23] LABS: HEMATOCRIT 27.3 % (42.0-52.0); HEMOGLOBIN 8.7 g/dl (13.5-17.5)
[2021-02-01] MEDS: PANTOPRAZOLE SODIUM 40 MG in D5W 50 ML IV SCH ×5 (03:49→19:53)
[2021-02-01 06:00] VITALS: BP 119/61
[2021-02-01] MEDS: NS 1,000 ML IV SCH (06:39)
[2021-02-01 06:41] LABS: BASO % 0.5 % (0.0-1.0); EOS # 0.2 10^3/uL (0.0-0.5); EOS % 2.6 % (0.0-3.0); HEMATOCRIT 26.7 % (42.0-52.0); HEMOGLOBIN 8.6 g/dl (13.5-17.5); LYMPH # 1.5 10^3/uL (1.5-5.0); LYMPH % 17.4 % (24.0-44.0); MEAN CORPUSCULAR HEMOGLOBIN 28.4 pg (27.0-33.0); MEAN CORPUSCULAR HGB CONC 32.2 g/dl (32.0-36.5); MEAN CORPUSCULAR VOLUME 88.1 fl (80.0-96.0); MONO % 10.9 % (2.0-8.0); NEUTROPHILS # 5.8 10^3/uL (1.5-8.5); NEUTROPHILS % 67.2 % (36.0-66.0); PLATELET COUNT, AUTOMATED 148 10^3/uL (150-450); RED BLOOD COUNT 3.03 10^6/uL (4.30-6.10); WHITE BLOOD COUNT 8.7 10^3/uL (4.0-10.0)
[2021-02-01 07:05] LABS: ALBUMIN 2.1 GM/DL (3.2-5.2); ALT/SGPT 19 U/L (12-78); BILIRUBIN,TOTAL 0.4 MG/DL (0.2-1.0); BLOOD UREA NITROGEN 16 MG/DL (7-18); CALCIUM LEVEL 6.9 MG/DL (8.5-10.1); CARBON DIOXIDE LEVEL 26 MEQ/L (21-32); CHLORIDE LEVEL 112 MEQ/L (98-107); CREATININE FOR GFR 0.63 MG/DL (0.70-1.30); GLOMERULAR FILTRATION RATE > 60.0 (>56); GLUCOSE, FASTING 137 MG/DL (70-100); MAGNESIUM LEVEL 1.5 MG/DL (1.8-2.4); POTASSIUM SERUM 3.4 MEQ/L (3.5-5.1); SODIUM LEVEL 143 MEQ/L (136-145); TOTAL PROTEIN 3.9 GM/DL (6.4-8.2)
[2021-02-01 07:16] VITALS: O2SAT 96
[2021-02-01] MEDS: HumaLOG INSULIN (NovoLOG) PER UNIT SC SCH ×3 (07:16→17:22)
[2021-02-01 07:40] VITALS: O2SAT 96
[2021-02-01] MEDS ORDERED: POTASSIUM CHLORIDE 10 MEQ SR TABLET PO ONE (08:00)
[2021-02-01] MEDS ORDERED: FUROSEMIDE 20MG/2ML VIAL (J1940) IV ONE (08:00)
[2021-02-01] MEDS: predniSONE 20 MG TAB PO SCH (08:50)
[2021-02-01] MEDS: predniSONE 5 MG TAB PO SCH (08:51)
[2021-02-01] MEDS: ASCORBIC ACID 500 MG TAB PO SCH (08:52)
[2021-02-01] MEDS: PYRIDOSTIGMINE 60 MG TAB PO SCH ×3 (08:52→20:45)
[2021-02-01] MEDS: SUCRALFATE SUSP 1GM/10ML UD PO SCH ×2 (08:52→20:45)
[2021-02-01] MEDS: LEVEMIR (INSULIN DETEMIR) 1 UNITS/0.01ML SC SCH ×2 (08:55→20:46)
[2021-02-01] MEDS: LIDOCAINE 5% (LIDODERM) PATCH TOP SCH (08:56)
[2021-02-01] MEDS: SANTYL OINT 30GM TOP SCH (08:57)
[2021-02-01 09:01] VITALS: BP 132/85
[2021-02-01] MEDS: IRBESARTAN 150MG TAB PO SCH (09:01)
--- NOTE | 2021-02-01 11:59 | IPNPDOC ---
Text Note Date of Service The patient was seen on 02/01/21. NOTE Subjective: Patient stated that he have bowel movement overnight with stool c overed with blood Objective: GENERAL APPEARANCE: NAD HEENT: no scleral icterus, no JVD, EOMI CARDIOVASCULAR: S1S2 LUNGS: CTA ABDOMEN: soft & not tender w palpitation, obese MUSCULOSKELETAL: no cyanosis, no swelling INTEGUMENT: no generalized pallor NEUROLOGICAL: cranial nerve function from 2-12 intact intact, follows commands, speech not dysarthric Assessment and plan Patient is 60 years old male with past history of hypertension, hyperlipidemia, diabetes, myasthenia gravis presented hospital with GI bleed. She was found to have hemoglobin 6.7. Acute anemia/GI bleed Secondary to GI bleed most likely after duodenal biopsy site (EGD done 01/25) Patient received 5 units, hemoglobin 8.6 today EGD was done yesterday. Patient was found to have a medium-sized (2.5 cm) ulcerated mass with bleeding was found in the proximal second portion of the duodenum. Area was successfully injected with 9 mL of a 1:10,000 solution of epinephrine for hemostasis. Clear liquid diet PPI Leukocytosis most likely reactive No any signs of acute infection Duodenal mass s/p biopsy Found on EGD for iron deficiency anemia. Initial biopsy showed "reactive atypia without evidence of high grade dysplasia" Repeat biopsy on 01/[address] 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 Lott) and receives weekly debridement every Monday Iron deficiency anemia Continue iron supplementation Myasthenia Gravis Continue home meds HTN Blood pressure under control Continue home cardioprotective medications HLD Continue statin DM2 Insulin sliding scale Continue clear liquid diet Await available bed in [facility]. Patient was accepted yesterday VS,Fishbone, I+O VS, Fishbone, I+O Laboratory Tests 01/31/21 19:28 02/01/21 01:14 02/01/21 06:06 Vital Signs Date Time Temp Pulse Resp B/P (MAP) Pulse Ox O2 Delivery O2 Flow Rate FiO2 02/01/21 09:01 132/85 02/01/21 07:40 96 Nasal Cannula 1.0 02/01/21 06:00 98.0 54 18 I&O- Last 24 Hours up to 6 AM 02/01/21 06:00 Intake Total 5960 ml Output Total 1700 ml Balance 4260 ml FERNANDA FIGUEROA DO February 01, 2021 11:59
[2021-02-01 13:23] LABS: HEMATOCRIT 32.2 % (42.0-52.0); HEMOGLOBIN 10.5 g/dl (13.5-17.5)
[2021-02-01 14:00] VITALS: BP 142/75
[2021-02-01] MEDS: ATOVAQUONE SUSP 750MG/5ML 210 ML BTL PO SCH (17:05)
[2021-02-01 19:19] LABS: HEMATOCRIT 26.9 % (42.0-52.0); HEMOGLOBIN 8.7 g/dl (13.5-17.5)
[2021-02-01 20:00] VITALS: BP 117/4
[2021-02-01] MEDS: ATORVASTATIN 20 MG TAB PO SCH (20:46)
[2021-02-01] MEDS: **NOTE PATIENT COMMENT** MISC XX SCH (20:51)
== END 2021-02-01 21:55 | disposition short-term general hospital (02) | DRG 920 ==
LOC: M ED 20:01 → M ED INP 23:29 → ENRESERV 01-29 00:58 → M ICU 01-29 02:07 → M MSPAV 01-30 20:49
PROVIDERS: ADMIT Family Medicine; ATTEND Internal Medicine
PROC: 30233N1 Transfusion of Nonautologous Red Blood Cells into Peripheral Vein, Percutaneous Approach (ICD-10-PCS; 2021-01-28)
PROC: 0W3P8ZZ Control Bleeding in Gastrointestinal Tract, Via Natural or Artificial Opening Endoscopic (ICD-10-PCS; principal; 2021-01-29 15:00)
DX: K91.840 Postprocedural hemorrhage of a digestive system organ or structure following a digestive system procedure (principal); D62 Acute posthemorrhagic anemia; L88 Pyoderma gangrenosum; E11.9 Type 2 diabetes mellitus without complications; G70.00 Myasthenia gravis without (acute) exacerbation; E78.5 Hyperlipidemia, unspecified; D72.829 Elevated white blood cell count, unspecified; M61.461 Other calcification of muscle, right lower leg; R09.02 Hypoxemia; D50.9 Iron deficiency anemia, unspecified; K31.89 Other diseases of stomach and duodenum; I10 Essential (primary) hypertension; Z98.41 Cataract extraction status, right eye; Z98.42 Cataract extraction status, left eye; Z96.611 Presence of right artificial shoulder joint; Z96.612 Presence of left artificial shoulder joint; Z96.643 Presence of artificial hip joint, bilateral; Z79.84 Long term (current) use of oral hypoglycemic drugs; Z79.52 Long term (current) use of systemic steroids; Z79.899 Other long term (current) drug therapy; Z88.2 Allergy status to sulfonamides; Z88.1 Allergy status to other antibiotic agents; Z88.8 Allergy status to other drugs, medicaments and biological substances; Z86.16 Personal history of COVID-19

== ENCOUNTER → 2021-04-21 | Outpatient (CLI) | payer MEDICARE, BC, OTHER ==
[~2021-04-21] MED LIST changes: +LIDO5TD TOP; +METF10004 PO; +OMEP1CAP73 PO; +PATIENT COMMENT; +SUCR1ORA2 PO
== END ==
LOC: M SLEEP 20:00
PROVIDERS: ATTEND Internal Medicine Pulmonary Disease
DX: G47.33 Obstructive sleep apnea (adult) (pediatric) (principal)

== ENCOUNTER → 2022-11-02 | Outpatient (CLI) | payer MEDICARE, BC, OTHER ==
[~2022-11-02] MED LIST changes: +OMEP-173 PO; -OMEP-218 PO
== END ==
LOC: M WHC 09:41
PROVIDERS: ATTEND Nurse Practitioner Adult Health
DX: M81.8 Other osteoporosis without current pathological fracture (principal); Z79.52 Long term (current) use of systemic steroids

== ENCOUNTER → 2022-11-02 | Outpatient (CLI) | payer MEDICARE, BC, OTHER | LOC: M RAD 12:15 | PROVIDERS: ATTEND Surgery | DX: I73.89 Other specified peripheral vascular diseases (principal) ==

== ENCOUNTER → 2022-11-02 | Outpatient (CLI) | payer MEDICARE, BC, OTHER | LOC: M SLEEP 20:00 | PROVIDERS: ATTEND Nurse Practitioner Family | DX: G47.33 Obstructive sleep apnea (adult) (pediatric) (principal); M81.8 Other osteoporosis without current pathological fracture; Z79.52 Long term (current) use of systemic steroids; I73.89 Other specified peripheral vascular diseases | CPT/HCPCS: 11042; 11043; 77080; 93926; 95811; G0463 ==

== ENCOUNTER → 2022-11-16 | Outpatient (REF) | payer MEDICARE, BC, OTHER | LOC: M SFHCWOUN 16:19 | PROVIDERS: ATTEND Surgery | DX: E11.622 Type 2 diabetes mellitus with other skin ulcer (principal) ==

== ENCOUNTER → 2022-11-23 | Outpatient (CLI) | payer MEDICARE, BC, OTHER | LOC: M RAD 10:00 | PROVIDERS: ATTEND Physician Assistant | DX: I70.201 Unspecified atherosclerosis of native arteries of extremities, right leg (principal); R09.89 Other specified symptoms and signs involving the circulatory and respiratory systems ==

== ENCOUNTER → 2022-11-30 | Outpatient (REF) | payer MEDICARE, BC, OTHER | LOC: M SFHCWOUN 12:42 | PROVIDERS: ATTEND Physician Assistant | DX: L97.822 Non-pressure chronic ulcer of other part of left lower leg with fat layer exposed (principal) ==

== ENCOUNTER → 2022-12-06 | Outpatient (POV) | payer MEDICARE, BC, OTHER ==
[~2022-12-06] VITALS: Ht 175.3 cm; Wt 93.6 kg
[2022-12-06 08:30] VITALS: BP 164/90
== END ==
LOC: M IRPOV 08:21
PROVIDERS: ATTEND Radiology Diagnostic Radiology
DX: E11.621 Type 2 diabetes mellitus with foot ulcer (principal); L97.519 Non-pressure chronic ulcer of other part of right foot with unspecified severity; L97.819 Non-pressure chronic ulcer of other part of right lower leg with unspecified severity; R93.89 Abnormal findings on diagnostic imaging of other specified body structures; Z79.84 Long term (current) use of oral hypoglycemic drugs; Z79.899 Other long term (current) drug therapy; Z88.1 Allergy status to other antibiotic agents; Z88.2 Allergy status to sulfonamides; Z88.8 Allergy status to other drugs, medicaments and biological substances

== ENCOUNTER → 2022-12-20 | Outpatient (CLI) | payer MEDICARE, BC, OTHER | LOC: M LABSMTC 11:12 | PROVIDERS: ATTEND Anesthesiology | DX: Z11.52 Encounter for screening for COVID-19 (principal) ==

== ENCOUNTER → 2022-12-22 | Outpatient (CLI) | payer MEDICARE, BC, OTHER ==
[~2022-12-22] MED LIST changes: +HEPARIN 1,000UNITS/ML 10ML VIAL (FOR RADIOLOGY & DIALYSIS ONLY) As Ordered ONE; +ISOVUE-300 61% 100ML VIAL As Ordered ONE; +LIDOCAINE 1% MDV 20ML VIAL As Ordered ONE; +MIDAZOLAM INJ 2MG/2ML VIAL As Ordered ONE; +NS 1,000 ML IV SCH; +diphenhydrAMINE 50MG/ML VIAL As Ordered ONE; +fentaNYL 100 MCG/2 ML INJECTION As Ordered ONE
[2022-12-22 17:30] VITALS: BP 132/79
== END ==
LOC: M IRPRO 08:38
PROVIDERS: ATTEND Radiology Diagnostic Radiology
DX: L97.919 Non-pressure chronic ulcer of unspecified part of right lower leg with unspecified severity (principal); Z79.52 Long term (current) use of systemic steroids; Z79.84 Long term (current) use of oral hypoglycemic drugs; Z79.899 Other long term (current) drug therapy; Z88.0 Allergy status to penicillin; Z88.2 Allergy status to sulfonamides; Z88.8 Allergy status to other drugs, medicaments and biological substances
CPT/HCPCS: 36247; 75710; 99152; 99153; C1769; C1887; C1894; J2250; J3010; Q9967

== ENCOUNTER 2023-01-09 18:43 | Inpatient (IN) | payer MEDICARE, BC, OTHER ==
[~2023-01-09] VITALS: Ht 177.8 cm; Wt 93.5 kg
[~2023-01-09 18:43] MED LIST changes: -HEPARIN 1,000UNITS/ML 10ML VIAL (FOR RADIOLOGY & DIALYSIS ONLY) As Ordered ONE; -ISOVUE-300 61% 100ML VIAL As Ordered ONE; -LIDOCAINE 1% MDV 20ML VIAL As Ordered ONE; -MIDAZOLAM INJ 2MG/2ML VIAL As Ordered ONE; -NS 1,000 ML IV SCH; -diphenhydrAMINE 50MG/ML VIAL As Ordered ONE; -fentaNYL 100 MCG/2 ML INJECTION As Ordered ONE
[2023-01-09 20:37] VITALS: BP 154/77
[2023-01-09] MEDS ORDERED: ACETAMINOPHEN TAB 650MG DOSE (2X325MG) PO PRN (20:55)
[2023-01-09] MEDS ORDERED: GLUCOSE 4GM CHEW TABLET PO PRN (20:55)
[2023-01-09] MEDS ORDERED: GLUCAGON INJ 1MG VIAL SC PRN (20:55)
[2023-01-09] MEDS ORDERED: DEXTROSE 50% 50ML SYRINGE IV PRN (20:55)
[2023-01-09] MEDS: INSULIN LISPRO (NovoLOG) PER UNIT SC SCH (21:00)
[2023-01-09 22:09] LABS: HEMATOCRIT 35.9 % (42.0-52.0); HEMOGLOBIN 11.2 g/dl (13.5-17.5); MEAN CORPUSCULAR HEMOGLOBIN 27.7 pg (27.0-33.0); MEAN CORPUSCULAR HGB CONC 31.2 g/dl (32.0-36.5); MEAN CORPUSCULAR VOLUME 88.6 fl (80.0-96.0); PLATELET COUNT, AUTOMATED 431 10^3/uL (150-450); RED BLOOD COUNT 4.05 10^6/uL (4.30-6.10); WHITE BLOOD COUNT 14.5 10^3/uL (4.0-10.0)
[2023-01-09 22:21] LABS: INR 0.88; PROTHROMBIN TIME 12.1 SECONDS (12.5-14.5)
[2023-01-09] MEDS ORDERED: LR 1,000 ML IV ONE (22:30)
[2023-01-09 22:31] LABS: ALBUMIN 3.3 G/DL (3.2-5.2); ALKALINE PHOSPHATASE 89 U/L (46-116); ALT/SGPT 18 U/L (7.0-40); AST/SGOT 21 U/L (<34); BILIRUBIN,TOTAL 0.2 MG/DL (0.3-1.2); BLOOD UREA NITROGEN 18 MG/DL (9-23); CALCIUM LEVEL 8.8 MG/DL (8.3-10.6); CARBON DIOXIDE LEVEL 26 MMOL/L (20-31); CHLORIDE LEVEL 99 MMOL/L (98-107); CREATININE FOR GFR 0.94 MG/DL (0.70-1.30); GLOMERULAR FILTRATION RATE > 60.0 (>49); GLUCOSE, FASTING 127 MG/DL (74-106); POTASSIUM SERUM 4.6 MMOL/L (3.5-5.1); SODIUM LEVEL 136 MMOL/L (136-145); TOTAL PROTEIN 6.5 G/DL (5.7-8.2)
[2023-01-09] MEDS: PERCOCET 5MG/325MG TAB PO PRN (22:50)
[2023-01-09 22:58] VITALS: BP 149/74
[2023-01-09] MEDS ORDERED: VITMTA PO (23:56)
[2023-01-09] MEDS ORDERED: ACET-897 PO (23:56)
[2023-01-09] MEDS ORDERED: FARX1TAB5 PO (23:56)
[2023-01-09] MEDS ORDERED: OMEG100011 PO (23:56)
[2023-01-09] MEDS ORDERED: META28PO PO (23:56)
[2023-01-09] MEDS ORDERED: PRED5TA PO (23:56)
[2023-01-10] MEDS ORDERED: HOME MED LIST COMPLETE! XX SCH
[2023-01-10] MEDS ORDERED: LR 1,000 ML IV SCH (00:50)
[2023-01-10] MEDS ORDERED: LR 1,000 ML IV ONE (03:10)
[2023-01-10] MEDS: PERCOCET 5MG/325MG TAB PO PRN ×5 (03:18→20:40)
[2023-01-10] MEDS ORDERED: NS 1,000 ML IV SCH (04:45)
[2023-01-10] MEDS ORDERED: NS 1,000 ML IV ONE (04:45)
[2023-01-10] MEDS ORDERED: MORPHINE 4 MG/ML 1ML VIAL IV ONE (05:00)
[2023-01-10 06:00] VITALS: BP 131/75
[2023-01-10 06:49] LABS: HEMATOCRIT 27.8 % (42.0-52.0); MEAN CORPUSCULAR HEMOGLOBIN 27.7 pg (27.0-33.0); MEAN CORPUSCULAR HGB CONC 31.7 g/dl (32.0-36.5); MEAN CORPUSCULAR VOLUME 87.4 fl (80.0-96.0); RED BLOOD COUNT 3.18 10^6/uL (4.30-6.10); WHITE BLOOD COUNT 10.3 10^3/uL (4.0-10.0)
[2023-01-10 06:50] LABS: HEMOGLOBIN 8.8 g/dl (13.5-17.5)
[2023-01-10 06:51] LABS: PLATELET COUNT, AUTOMATED 330 10^3/uL (150-450)
[2023-01-10 07:14] LABS: BLOOD UREA NITROGEN 12 MG/DL (9-23); CALCIUM LEVEL 7.6 MG/DL (8.3-10.6); CARBON DIOXIDE LEVEL 28 MMOL/L (20-31); CHLORIDE LEVEL 103 MMOL/L (98-107); CREATININE FOR GFR 0.72 MG/DL (0.70-1.30); GLOMERULAR FILTRATION RATE > 60.0 (>49); GLUCOSE, FASTING 64 MG/DL (74-106); MAGNESIUM LEVEL 1.5 MG/DL (1.8-2.4); POTASSIUM SERUM 4.2 MMOL/L (3.5-5.1); SODIUM LEVEL 138 MMOL/L (136-145)
[2023-01-10] MEDS: INSULIN LISPRO (NovoLOG) PER UNIT SC SCH ×4 (07:30→20:40)
[2023-01-10] MEDS: FERROUS SULFATE 325MG TAB PO SCH (07:54)
[2023-01-10] MEDS: PYRIDOSTIGMINE 60MG TABLET PO SCH ×3 (07:54→20:39)
[2023-01-10] MEDS: predniSONE 5 MG TAB PO SCH (07:54)
[2023-01-10] MEDS: ATOVAQUONE SUSP 750MG/5ML 210 ML BTL PO SCH (07:55)
[2023-01-10] MEDS: IRBESARTAN 150MG TAB PO SCH (07:55)
[2023-01-10] MEDS: ENOXAPARIN 40MG/0.4ML SYRINGE (J1650 PER 10MG) SC SCH (07:56)
[2023-01-10] MEDS: LIDOCAINE 5% (LIDODERM) PATCH TOP SCH (07:59)
[2023-01-10 14:00] VITALS: BP 139/68
[2023-01-10] MEDS: ATORVASTATIN 20 MG TAB PO SCH (20:39)
[2023-01-10 22:00] VITALS: BP 135/69
[2023-01-11] MEDS: PERCOCET 5MG/325MG TAB PO PRN ×6 (01:42→22:49)
[2023-01-11 05:17] VITALS: BP 144/69
[2023-01-11 06:39] LABS: HEMATOCRIT 32.5 % (42.0-52.0); MEAN CORPUSCULAR HEMOGLOBIN 27.1 pg (27.0-33.0); MEAN CORPUSCULAR HGB CONC 30.8 g/dl (32.0-36.5); MEAN CORPUSCULAR VOLUME 88.1 fl (80.0-96.0); PLATELET COUNT, AUTOMATED 293 10^3/uL (150-450); RED BLOOD COUNT 3.69 10^6/uL (4.30-6.10); WHITE BLOOD COUNT 12.9 10^3/uL (4.0-10.0)
[2023-01-11 07:03] LABS: BLOOD UREA NITROGEN 12 MG/DL (9-23); CALCIUM LEVEL 8.3 MG/DL (8.3-10.6); CARBON DIOXIDE LEVEL 31 MMOL/L (20-31); CHLORIDE LEVEL 101 MMOL/L (98-107); CREATININE FOR GFR 0.81 MG/DL (0.70-1.30); GLOMERULAR FILTRATION RATE > 60.0 (>49); GLUCOSE, FASTING 93 MG/DL (74-106); POTASSIUM SERUM 3.9 MMOL/L (3.5-5.1); SODIUM LEVEL 138 MMOL/L (136-145)
[2023-01-11] MEDS: INSULIN LISPRO (NovoLOG) PER UNIT SC SCH ×4 (07:30→21:00)
[2023-01-11] MEDS ORDERED: SANTYL OINT 30GM TOP SCH (09:00)
[2023-01-11] MEDS: predniSONE 5 MG TAB PO SCH (09:19)
[2023-01-11] MEDS: FERROUS SULFATE 325MG TAB PO SCH (09:19)
[2023-01-11] MEDS: PYRIDOSTIGMINE 60MG TABLET PO SCH ×3 (09:20→21:31)
[2023-01-11] MEDS: IRBESARTAN 150MG TAB PO SCH (09:22)
[2023-01-11] MEDS: ATOVAQUONE SUSP 750MG/5ML 210 ML BTL PO SCH (09:25)
[2023-01-11] MEDS: LIDOCAINE 5% (LIDODERM) PATCH TOP SCH (09:25)
[2023-01-11] MEDS: SANTYL OINT 30GM TOP SCH (09:27)
[2023-01-11] MEDS: ENOXAPARIN 40MG/0.4ML SYRINGE (J1650 PER 10MG) SC SCH (09:28)
[2023-01-11 21:20] VITALS: BP 125/88
[2023-01-11] MEDS: DAKIN'S 0.25% HALF-STRENGTH SOLN 480 ML TOP SCH (21:31)
[2023-01-11] MEDS: ATORVASTATIN 20 MG TAB PO SCH (21:31)
[2023-01-12] MEDS: PERCOCET 5MG/325MG TAB PO PRN ×6 (05:24→21:24)
[2023-01-12 06:14] LABS: HEMOGLOBIN 9.8 g/dl (13.5-17.5); MEAN CORPUSCULAR HEMOGLOBIN 27.7 pg (27.0-33.0); MEAN CORPUSCULAR HGB CONC 31.6 g/dl (32.0-36.5); MEAN CORPUSCULAR VOLUME 87.6 fl (80.0-96.0); PLATELET COUNT, AUTOMATED 368 10^3/uL (150-450); RED BLOOD COUNT 3.54 10^6/uL (4.30-6.10); WHITE BLOOD COUNT 12.2 10^3/uL (4.0-10.0)
[2023-01-12 06:27] VITALS: BP 123/76
[2023-01-12 06:40] LABS: BLOOD UREA NITROGEN 14 MG/DL (9-23); CARBON DIOXIDE LEVEL 31 MMOL/L (20-31); CHLORIDE LEVEL 101 MMOL/L (98-107); CREATININE FOR GFR 0.76 MG/DL (0.70-1.30); GLOMERULAR FILTRATION RATE > 60.0 (>49); GLUCOSE, FASTING 115 MG/DL (74-106); POTASSIUM SERUM 3.8 MMOL/L (3.5-5.1); SODIUM LEVEL 136 MMOL/L (136-145)
[2023-01-12] MEDS: LIDOCAINE 5% (LIDODERM) PATCH TOP SCH (07:40)
[2023-01-12] MEDS: ATOVAQUONE SUSP 750MG/5ML 210 ML BTL PO SCH (07:40)
[2023-01-12] MEDS: PYRIDOSTIGMINE 60MG TABLET PO SCH ×3 (07:42→21:23)
[2023-01-12] MEDS: predniSONE 5 MG TAB PO SCH (07:42)
[2023-01-12] MEDS: IRBESARTAN 150MG TAB PO SCH (07:42)
[2023-01-12] MEDS: FERROUS SULFATE 325MG TAB PO SCH (07:42)
[2023-01-12] MEDS: ENOXAPARIN 40MG/0.4ML SYRINGE (J1650 PER 10MG) SC SCH (07:44)
[2023-01-12] MEDS: INSULIN LISPRO (NovoLOG) PER UNIT SC SCH ×4 (08:20→21:00)
[2023-01-12 09:00] VITALS: BP 121/66
[2023-01-12] MEDS ORDERED: FENTANYL REMOVAL DOCUMENTATION MISC XX SCH (09:15)
[2023-01-12] MEDS: SANTYL OINT 30GM TOP SCH (10:51)
[2023-01-12] MEDS: DAKIN'S 0.25% HALF-STRENGTH SOLN 480 ML TOP SCH ×2 (10:51→21:26)
[2023-01-12 14:00] VITALS: BP 120/66
[2023-01-12] MEDS: LIDOCAINE 5% (LIDODERM) PATCH TD SCH (15:20)
[2023-01-12] MEDS ORDERED: SODIUM CHLORIDE NASAL 0.65% SPRAY BTL (OCEAN) PRN (19:40)
[2023-01-12] MEDS: ATORVASTATIN 20 MG TAB PO SCH (21:23)
[2023-01-12] MEDS: LIDOCAINE 4% CREAM 5GM (LMX4) TOP SCH (21:24)
[2023-01-13] MEDS: PERCOCET 5MG/325MG TAB PO PRN ×5 (01:50→18:54)
[2023-01-13 05:57] LABS: HEMATOCRIT 29.7 % (42.0-52.0); HEMOGLOBIN 9.2 g/dl (13.5-17.5); MEAN CORPUSCULAR HEMOGLOBIN 27.1 pg (27.0-33.0); MEAN CORPUSCULAR VOLUME 87.4 fl (80.0-96.0); PLATELET COUNT, AUTOMATED 361 10^3/uL (150-450); WHITE BLOOD COUNT 11.1 10^3/uL (4.0-10.0)
[2023-01-13 06:24] VITALS: BP 120/68
[2023-01-13 06:26] LABS: BLOOD UREA NITROGEN 17 MG/DL (9-23); CALCIUM LEVEL 7.9 MG/DL (8.3-10.6); CARBON DIOXIDE LEVEL 30 MMOL/L (20-31); CHLORIDE LEVEL 103 MMOL/L (98-107); CREATININE FOR GFR 0.72 MG/DL (0.70-1.30); GLOMERULAR FILTRATION RATE > 60.0 (>49); GLUCOSE, FASTING 116 MG/DL (74-106); POTASSIUM SERUM 4.1 MMOL/L (3.5-5.1); SODIUM LEVEL 138 MMOL/L (136-145)
[2023-01-13 08:00] VITALS: BP 136/87
[2023-01-13 08:28] VITALS: BP 136/87
[2023-01-13] MEDS: PYRIDOSTIGMINE 60MG TABLET PO SCH ×3 (08:34→21:38)
[2023-01-13] MEDS: INSULIN LISPRO (NovoLOG) PER UNIT SC SCH ×4 (08:34→21:38)
[2023-01-13] MEDS: predniSONE 5 MG TAB PO SCH (08:35)
[2023-01-13] MEDS: IRBESARTAN 150MG TAB PO SCH (09:00)
[2023-01-13] MEDS: MUPIROCIN 2% OINT 22 GM TUBE TOP SCH ×2 (10:53→21:00)
[2023-01-13] MEDS: FERROUS SULFATE 325MG TAB PO SCH (10:54)
[2023-01-13] MEDS: ENOXAPARIN 40MG/0.4ML SYRINGE (J1650 PER 10MG) SC SCH (10:55)
[2023-01-13] MEDS: ATOVAQUONE SUSP 750MG/5ML 210 ML BTL PO SCH (10:56)
[2023-01-13] MEDS: SANTYL OINT 30GM TOP SCH (11:01)
[2023-01-13] MEDS: LIDOCAINE 5% (LIDODERM) PATCH TD SCH (11:01)
[2023-01-13] MEDS: LIDOCAINE 4% CREAM 5GM (LMX4) TOP SCH ×2 (11:02→21:00)
[2023-01-13] MEDS: LIDOCAINE 5% (LIDODERM) PATCH TOP SCH (11:08)
[2023-01-13] MEDS: DAKIN'S 0.25% HALF-STRENGTH SOLN 480 ML TOP SCH ×2 (11:08→21:00)
[2023-01-13 14:00] VITALS: BP 139/85
[2023-01-13] MEDS ORDERED: SENOKOT S TAB PO PRN (16:15)
[2023-01-13] MEDS: ATORVASTATIN 20 MG TAB PO SCH (21:39)
[2023-01-13] MEDS: MOM 30ML SUSPENSION UDC PO PRN (21:43)
[2023-01-13 22:00] VITALS: BP 135/78
[2023-01-14] MEDS: PERCOCET 5MG/325MG TAB PO PRN ×7 (00:41→22:01)
[2023-01-14 06:33] LABS: MEAN CORPUSCULAR HEMOGLOBIN 27.4 pg (27.0-33.0); MEAN CORPUSCULAR VOLUME 88.1 fl (80.0-96.0); PLATELET COUNT, AUTOMATED 363 10^3/uL (150-450); RED BLOOD COUNT 3.29 10^6/uL (4.30-6.10); WHITE BLOOD COUNT 11.1 10^3/uL (4.0-10.0)
[2023-01-14 06:37] VITALS: BP 119/72
[2023-01-14 07:03] LABS: BLOOD UREA NITROGEN 16 MG/DL (9-23); CALCIUM LEVEL 7.7 MG/DL (8.3-10.6); CARBON DIOXIDE LEVEL 31 MMOL/L (20-31); CHLORIDE LEVEL 103 MMOL/L (98-107); CREATININE FOR GFR 0.78 MG/DL (0.70-1.30); GLOMERULAR FILTRATION RATE > 60.0 (>49); GLUCOSE, FASTING 122 MG/DL (74-106); POTASSIUM SERUM 4.1 MMOL/L (3.5-5.1); SODIUM LEVEL 138 MMOL/L (136-145)
[2023-01-14] MEDS: INSULIN LISPRO (NovoLOG) PER UNIT SC SCH ×4 (08:09→20:01)
[2023-01-14] MEDS: FERROUS SULFATE 325MG TAB PO SCH (08:09)
[2023-01-14] MEDS: predniSONE 5 MG TAB PO SCH (08:10)
[2023-01-14] MEDS: LIDOCAINE 4% CREAM 5GM (LMX4) TOP SCH ×2 (08:10→21:00)
[2023-01-14] MEDS: IRBESARTAN 150MG TAB PO SCH (08:12)
[2023-01-14] MEDS: ATOVAQUONE SUSP 750MG/5ML 210 ML BTL PO SCH (08:13)
[2023-01-14] MEDS: ENOXAPARIN 40MG/0.4ML SYRINGE (J1650 PER 10MG) SC SCH (08:13)
[2023-01-14] MEDS: LIDOCAINE 5% (LIDODERM) PATCH TD SCH (08:14)
[2023-01-14] MEDS: LIDOCAINE 5% (LIDODERM) PATCH TOP SCH (08:33)
[2023-01-14] MEDS: PYRIDOSTIGMINE 60MG TABLET PO SCH ×3 (08:33→22:01)
[2023-01-14] MEDS: SANTYL OINT 30GM TOP SCH (12:46)
[2023-01-14] MEDS: MUPIROCIN 2% OINT 22 GM TUBE TOP SCH ×2 (12:46→21:00)
[2023-01-14 14:00] VITALS: BP 112/63
[2023-01-14] MEDS: MOM 30ML SUSPENSION UDC PO PRN (19:59)
[2023-01-14 20:15] VITALS: BP 119/65
[2023-01-14] MEDS: ATORVASTATIN 20 MG TAB PO SCH (22:00)
[2023-01-15] MEDS: PERCOCET 5MG/325MG TAB PO PRN ×6 (02:16→23:04)
[2023-01-15 06:00] VITALS: BP 122/68
[2023-01-15 06:19] LABS: HEMOGLOBIN 9.7 g/dl (13.5-17.5); MEAN CORPUSCULAR HEMOGLOBIN 27.2 pg (27.0-33.0); MEAN CORPUSCULAR HGB CONC 30.3 g/dl (32.0-36.5); MEAN CORPUSCULAR VOLUME 89.6 fl (80.0-96.0); PLATELET COUNT, AUTOMATED 418 10^3/uL (150-450); RED BLOOD COUNT 3.57 10^6/uL (4.30-6.10)
[2023-01-15 06:45] LABS: BLOOD UREA NITROGEN 15 MG/DL (9-23); CALCIUM LEVEL 7.8 MG/DL (8.3-10.6); CARBON DIOXIDE LEVEL 32 MMOL/L (20-31); CHLORIDE LEVEL 101 MMOL/L (98-107); CREATININE FOR GFR 0.79 MG/DL (0.70-1.30); GLOMERULAR FILTRATION RATE > 60.0 (>49); GLUCOSE, FASTING 141 MG/DL (74-106); POTASSIUM SERUM 4.3 MMOL/L (3.5-5.1); SODIUM LEVEL 138 MMOL/L (136-145)
[2023-01-15] MEDS: ATOVAQUONE SUSP 750MG/5ML 210 ML BTL PO SCH (08:12)
[2023-01-15] MEDS: INSULIN LISPRO (NovoLOG) PER UNIT SC SCH ×4 (08:12→21:45)
[2023-01-15] MEDS: ENOXAPARIN 40MG/0.4ML SYRINGE (J1650 PER 10MG) SC SCH (08:13)
[2023-01-15] MEDS: IRBESARTAN 150MG TAB PO SCH (08:15)
[2023-01-15] MEDS: predniSONE 5 MG TAB PO SCH (08:15)
[2023-01-15] MEDS: LIDOCAINE 4% CREAM 5GM (LMX4) TOP SCH ×2 (08:15→21:44)
[2023-01-15] MEDS: PYRIDOSTIGMINE 60MG TABLET PO SCH ×3 (08:15→21:44)
[2023-01-15] MEDS: FERROUS SULFATE 325MG TAB PO SCH (08:15)
[2023-01-15] MEDS: LIDOCAINE 5% (LIDODERM) PATCH TOP SCH (08:16)
[2023-01-15] MEDS: LIDOCAINE 5% (LIDODERM) PATCH TD SCH (08:16)
[2023-01-15] MEDS: MUPIROCIN 2% OINT 22 GM TUBE TOP SCH ×2 (08:17→21:45)
[2023-01-15] MEDS: SANTYL OINT 30GM TOP SCH (08:17)
[2023-01-15 14:00] VITALS: BP 113/65
[2023-01-15 20:59] VITALS: BP 134/79
[2023-01-15] MEDS: ATORVASTATIN 20 MG TAB PO SCH (21:44)
[2023-01-16] MEDS: PERCOCET 5MG/325MG TAB PO PRN ×4 (03:19→20:27)
[2023-01-16 06:41] VITALS: BP 128/76
[2023-01-16 06:51] LABS: HEMATOCRIT 29.7 % (42.0-52.0); HEMOGLOBIN 9.1 g/dl (13.5-17.5); MEAN CORPUSCULAR HEMOGLOBIN 27.4 pg (27.0-33.0); MEAN CORPUSCULAR HGB CONC 30.6 g/dl (32.0-36.5); MEAN CORPUSCULAR VOLUME 89.5 fl (80.0-96.0); PLATELET COUNT, AUTOMATED 374 10^3/uL (150-450); RED BLOOD COUNT 3.32 10^6/uL (4.30-6.10)
[2023-01-16 07:13] LABS: BLOOD UREA NITROGEN 14 MG/DL (9-23); CALCIUM LEVEL 7.9 MG/DL (8.3-10.6); CARBON DIOXIDE LEVEL 30 MMOL/L (20-31); CHLORIDE LEVEL 103 MMOL/L (98-107); CREATININE FOR GFR 0.84 MG/DL (0.70-1.30); GLOMERULAR FILTRATION RATE > 60.0 (>49); GLUCOSE, FASTING 148 MG/DL (74-106); POTASSIUM SERUM 4.5 MMOL/L (3.5-5.1); SODIUM LEVEL 138 MMOL/L (136-145)
[2023-01-16] MEDS: LIDOCAINE 5% (LIDODERM) PATCH TOP SCH (08:12)
[2023-01-16] MEDS: ATOVAQUONE SUSP 750MG/5ML 210 ML BTL PO SCH (08:12)
[2023-01-16] MEDS: LIDOCAINE 5% (LIDODERM) PATCH TD SCH (08:12)
[2023-01-16] MEDS: FERROUS SULFATE 325MG TAB PO SCH (08:13)
[2023-01-16] MEDS: predniSONE 5 MG TAB PO SCH (08:13)
[2023-01-16] MEDS: ENOXAPARIN 40MG/0.4ML SYRINGE (J1650 PER 10MG) SC SCH (08:14)
[2023-01-16] MEDS: INSULIN LISPRO (NovoLOG) PER UNIT SC SCH ×4 (08:15→20:34)
[2023-01-16] MEDS: MUPIROCIN 2% OINT 22 GM TUBE TOP SCH ×2 (08:16→20:28)
[2023-01-16] MEDS: LIDOCAINE 4% CREAM 5GM (LMX4) TOP SCH ×2 (08:16→20:29)
[2023-01-16] MEDS: IRBESARTAN 150MG TAB PO SCH (08:16)
[2023-01-16] MEDS: SANTYL OINT 30GM TOP SCH (08:16)
[2023-01-16] MEDS: PYRIDOSTIGMINE 60MG TABLET PO SCH ×3 (09:08→20:27)
[2023-01-16 14:00] VITALS: BP 115/56
[2023-01-16] MEDS ORDERED: ONDANSETRON 4MG 2ML VIAL IV PRN (15:30)
[2023-01-16] MEDS ORDERED: oxyCODONE 5MG TAB PO PRN (15:30)
[2023-01-16] MEDS ORDERED: HYDROMORPHONE HCL 0.5 MG/ 0.5 ML SYRINGE IV PRN (15:30)
[2023-01-16] MEDS ORDERED: fentaNYL 100 MCG/2 ML INJECTION IV PRN (15:30)
[2023-01-16] MEDS ORDERED: MEPERIDINE 25 MG/ML 1ML VIAL IV PRN (15:30)
[2023-01-16] MEDS: ATORVASTATIN 20 MG TAB PO SCH (20:27)
[2023-01-16 21:52] VITALS: BP 171/80
[2023-01-17] VITALS (9 sets, daily range): BP systolic 97–145; BP diastolic 58–90
[2023-01-17] MEDS: PERCOCET 5MG/325MG TAB PO PRN ×5 (00:05→20:27)
[2023-01-17] MEDS: PYRIDOSTIGMINE 60MG TABLET PO SCH ×3 (05:29→20:27)
[2023-01-17 06:14] LABS: HEMATOCRIT 30.1 % (42.0-52.0); HEMOGLOBIN 9.2 g/dl (13.5-17.5); MEAN CORPUSCULAR HEMOGLOBIN 26.7 pg (27.0-33.0); MEAN CORPUSCULAR HGB CONC 30.6 g/dl (32.0-36.5); MEAN CORPUSCULAR VOLUME 87.5 fl (80.0-96.0); PLATELET COUNT, AUTOMATED 387 10^3/uL (150-450); RED BLOOD COUNT 3.44 10^6/uL (4.30-6.10); WHITE BLOOD COUNT 11.8 10^3/uL (4.0-10.0)
[2023-01-17 06:34] LABS: BLOOD UREA NITROGEN 15 MG/DL (9-23); CALCIUM LEVEL 7.6 MG/DL (8.3-10.6); CARBON DIOXIDE LEVEL 30 MMOL/L (20-31); CHLORIDE LEVEL 103 MMOL/L (98-107); CREATININE FOR GFR 0.77 MG/DL (0.70-1.30); GLOMERULAR FILTRATION RATE > 60.0 (>49); GLUCOSE, FASTING 127 MG/DL (74-106); POTASSIUM SERUM 4.4 MMOL/L (3.5-5.1); SODIUM LEVEL 137 MMOL/L (136-145)
[2023-01-17] MEDS: INSULIN LISPRO (NovoLOG) PER UNIT SC SCH ×4 (07:30→21:00)
[2023-01-17] MEDS: IRBESARTAN 150MG TAB PO SCH (08:47)
[2023-01-17] MEDS ORDERED: LIDOCAINE 2% 100MG/5ML SDV (FOR ANES.) As Ordered ONE (08:48)
[2023-01-17] MEDS ORDERED: propofoL 200 MG/20 ML VIAL As Ordered ONE (08:48)
[2023-01-17] MEDS: SANTYL OINT 30GM TOP SCH (08:49)
[2023-01-17] MEDS: MUPIROCIN 2% OINT 22 GM TUBE TOP SCH ×2 (08:49→21:00)
[2023-01-17] MEDS: LIDOCAINE 4% CREAM 5GM (LMX4) TOP SCH ×2 (08:49→21:00)
[2023-01-17] MEDS ORDERED: ONDANSETRON 4MG 2ML VIAL As Ordered ONE (08:49)
[2023-01-17] MEDS ORDERED: ePHEDrine SULFATE 25 MG/5 ML(5MG/ML) SYRINGE As Ordered ONE (08:52)
[2023-01-17] MEDS: predniSONE 5 MG TAB PO SCH (08:54)
[2023-01-17] MEDS: LIDOCAINE 5% (LIDODERM) PATCH TOP SCH (09:00)
[2023-01-17] MEDS: LIDOCAINE 5% (LIDODERM) PATCH TD SCH (09:00)
[2023-01-17] MEDS: FERROUS SULFATE 325MG TAB PO SCH (09:31)
[2023-01-17] MEDS: ATOVAQUONE SUSP 750MG/5ML 210 ML BTL PO SCH (09:31)
[2023-01-17] MEDS ORDERED: fentaNYL 100 MCG/2 ML INJECTION As Ordered ONE (11:18)
[2023-01-17] MEDS ORDERED: MIDAZOLAM INJ 2MG/2ML VIAL As Ordered ONE (11:18)
[2023-01-17 11:28] LABS: PHOSPHORUS LEVEL 3.5 MG/DL (2.4-5.1)
[2023-01-17] MEDS ORDERED: BUPIVACAINE LIPOSOME/PF 1.3% 20ML VIAL (13.3MG/ML)(EXPAREL) As Ordered ONE (11:45)
[2023-01-17 11:47] LABS: ALBUMIN 2.5 G/DL (3.2-5.2)
[2023-01-17] MEDS ORDERED: ACETAMINOPHEN 1000MG 100ML IV BAG As Ordered ONE (11:54)
[2023-01-17] MEDS ORDERED: CIPROFLOXACIN/D5W 400 MG/200 ML BAG As Ordered ONE (12:02)
[2023-01-17] MEDS ORDERED: ONDANSETRON 4MG 2ML VIAL IV PRN (12:55)
[2023-01-17] MEDS ORDERED: oxyCODONE 5MG TAB PO PRN (12:55)
[2023-01-17] MEDS: fentaNYL 100 MCG/2 ML INJECTION IV PRN ×4 (13:13→13:32)
[2023-01-17] MEDS ORDERED: INSULIN LISPRO (NovoLOG) PER UNIT SC ONE (20:25)
[2023-01-17] MEDS ORDERED: NS 500 ML IV ONE (20:25)
[2023-01-17] MEDS: ATORVASTATIN 20 MG TAB PO SCH (20:28)
[2023-01-17] MEDS: cefTRIAXone SOD 1 GM in D5W MINI-BAG PLUS 50 ML IV SCH (21:28)
[2023-01-18 02:00] VITALS: BP 114/62
[2023-01-18] MEDS: PERCOCET 5MG/325MG TAB PO PRN ×5 (02:08→22:28)
[2023-01-18 06:00] VITALS: BP 114/62
[2023-01-18 06:21] LABS: HEMOGLOBIN 8.3 g/dl (13.5-17.5); MEAN CORPUSCULAR HEMOGLOBIN 26.9 pg (27.0-33.0); MEAN CORPUSCULAR HGB CONC 30.7 g/dl (32.0-36.5); MEAN CORPUSCULAR VOLUME 87.4 fl (80.0-96.0); PLATELET COUNT, AUTOMATED 365 10^3/uL (150-450); RED BLOOD COUNT 3.09 10^6/uL (4.30-6.10); WHITE BLOOD COUNT 11.2 10^3/uL (4.0-10.0)
[2023-01-18 06:22] LABS: BASO % 0.1 % (0.0-1.0); LYMPH # 0.7 10^3/uL (1.5-5.0); LYMPH % 6.1 % (24.0-44.0); MONO # 1.1 10^3/uL (0.0-0.8); NEUTROPHILS # 9.3 10^3/uL (1.5-8.5)
[2023-01-18 06:43] LABS: BLOOD UREA NITROGEN 20 MG/DL (9-23); CALCIUM LEVEL 7.8 MG/DL (8.3-10.6); CARBON DIOXIDE LEVEL 30 MMOL/L (20-31); CHLORIDE LEVEL 101 MMOL/L (98-107); CREATININE FOR GFR 0.79 MG/DL (0.70-1.30); GLOMERULAR FILTRATION RATE > 60.0 (>49); GLUCOSE, FASTING 236 MG/DL (74-106); POTASSIUM SERUM 4.5 MMOL/L (3.5-5.1); SODIUM LEVEL 136 MMOL/L (136-145)
[2023-01-18] MEDS: predniSONE 5 MG TAB PO SCH (08:34)
[2023-01-18] MEDS: INSULIN LISPRO (NovoLOG) PER UNIT SC SCH ×4 (08:34→21:34)
[2023-01-18] MEDS: FERROUS SULFATE 325MG TAB PO SCH (08:35)
[2023-01-18] MEDS: PYRIDOSTIGMINE 60MG TABLET PO SCH ×3 (08:35→20:02)
[2023-01-18] MEDS: IRBESARTAN 150MG TAB PO SCH (08:35)
[2023-01-18] MEDS: SANTYL OINT 30GM TOP SCH (08:36)
[2023-01-18] MEDS: ATOVAQUONE SUSP 750MG/5ML 210 ML BTL PO SCH (08:36)
[2023-01-18] MEDS: MUPIROCIN 2% OINT 22 GM TUBE TOP SCH ×2 (08:38→20:16)
[2023-01-18] MEDS: LIDOCAINE 5% (LIDODERM) PATCH TD SCH (08:39)
[2023-01-18] MEDS: LIDOCAINE 5% (LIDODERM) PATCH TOP SCH (08:39)
[2023-01-18] MEDS: LIDOCAINE 4% CREAM 5GM (LMX4) TOP SCH ×2 (08:39→20:17)
[2023-01-18] MEDS ORDERED: LEVEMIR (INSULIN DETEMIR) 1 UNITS/0.01ML SC SCH (09:00)
[2023-01-18 10:00] VITALS: BP 127/67
[2023-01-18] MEDS: MOM 30ML SUSPENSION UDC PO PRN (13:58)
[2023-01-18 14:00] VITALS: BP 110/63
[2023-01-18] MEDS ORDERED: INSULIN LISPRO (NovoLOG) PER UNIT SC ONE (17:30)
[2023-01-18] MEDS ORDERED: SODIUM CHLORIDE 0.9% 1000ML IV ONE (19:55)
[2023-01-18] MEDS: ATORVASTATIN 20 MG TAB PO SCH (20:02)
[2023-01-18] MEDS: cefTRIAXone SOD 1 GM in D5W MINI-BAG PLUS 50 ML IV SCH (20:24)
[2023-01-18 20:25] VITALS: BP 111/56
[2023-01-19] MEDS ORDERED: PERCOCET 5MG/325MG TAB As Ordered ONE (02:48)
[2023-01-19] MEDS: PERCOCET 5MG/325MG TAB PO PRN ×2 (02:50→06:59)
[2023-01-19 06:28] LABS: BASO % 0.3 % (0.0-1.0); EOS # 0.1 10^3/uL (0.0-0.5); HEMATOCRIT 27.8 % (42.0-52.0); HEMOGLOBIN 8.5 g/dl (13.5-17.5); LYMPH # 1.8 10^3/uL (1.5-5.0); LYMPH % 16.8 % (24.0-44.0); MEAN CORPUSCULAR HEMOGLOBIN 26.9 pg (27.0-33.0); MEAN CORPUSCULAR HGB CONC 30.6 g/dl (32.0-36.5); MONO # 1.2 10^3/uL (0.0-0.8); MONO % 11.3 % (2.0-8.0); NEUTROPHILS # 7.3 10^3/uL (1.5-8.5); NEUTROPHILS % 69.6 % (36.0-66.0); PLATELET COUNT, AUTOMATED 385 10^3/uL (150-450); RED BLOOD COUNT 3.16 10^6/uL (4.30-6.10); WHITE BLOOD COUNT 10.5 10^3/uL (4.0-10.0)
[2023-01-19 06:29] VITALS: BP 126/64
[2023-01-19 06:48] LABS: BLOOD UREA NITROGEN 27 MG/DL (9-23); CALCIUM LEVEL 8.3 MG/DL (8.3-10.6); CARBON DIOXIDE LEVEL 31 MMOL/L (20-31); CHLORIDE LEVEL 103 MMOL/L (98-107); CREATININE FOR GFR 0.83 MG/DL (0.70-1.30); GLOMERULAR FILTRATION RATE > 60.0 (>49); GLUCOSE, FASTING 112 MG/DL (74-106); POTASSIUM SERUM 4.3 MMOL/L (3.5-5.1); SODIUM LEVEL 139 MMOL/L (136-145)
[2023-01-19] MEDS ORDERED: ACETAMINOPHEN 325 MG TAB PO PRN (07:35)
[2023-01-19 08:00] VITALS: BP 143/79
[2023-01-19] MEDS: ACETAMINOPHEN 325 MG TAB PO SCH ×4 (08:31→23:59)
[2023-01-19] MEDS: INSULIN LISPRO (NovoLOG) PER UNIT SC SCH ×6 (08:31→19:59)
[2023-01-19] MEDS: predniSONE 5 MG TAB PO SCH (08:48)
[2023-01-19] MEDS: FERROUS SULFATE 325MG TAB PO SCH (08:48)
[2023-01-19] MEDS: ATOVAQUONE SUSP 750MG/5ML 210 ML BTL PO SCH (08:48)
[2023-01-19] MEDS: IRBESARTAN 150MG TAB PO SCH (08:49)
[2023-01-19] MEDS: LIDOCAINE 5% (LIDODERM) PATCH TOP SCH (08:50)
[2023-01-19] MEDS ORDERED: oxyCODONE 5MG TAB PO PRN (09:00)
[2023-01-19] MEDS: LIDOCAINE 4% CREAM 5GM (LMX4) TOP SCH ×2 (09:00→20:00)
[2023-01-19] MEDS: LIDOCAINE 5% (LIDODERM) PATCH TD SCH (09:00)
[2023-01-19] MEDS: MUPIROCIN 2% OINT 22 GM TUBE TOP SCH ×2 (09:00→20:00)
[2023-01-19] MEDS: PYRIDOSTIGMINE 60MG TABLET PO SCH ×3 (09:25→19:58)
[2023-01-19] MEDS: SANTYL OINT 30GM TOP SCH (09:26)
[2023-01-19] MEDS: LEVEMIR (INSULIN DETEMIR) 1 UNITS/0.01ML SC SCH (10:46)
[2023-01-19] MEDS: MEROPENEM INJ 1 GM in IV 1 EA IV SCH ×2 (12:12→18:10)
[2023-01-19] MEDS: oxyCODONE 5MG TAB PO PRN ×3 (13:33→23:59)
[2023-01-19 14:00] VITALS: BP 117/58
[2023-01-19 14:39] LABS: HEMOGLOBIN A1c 8.1 % (4.0-6.0)
[2023-01-19 19:43] VITALS: BP 119/64
[2023-01-19] MEDS: ATORVASTATIN 20 MG TAB PO SCH (19:59)
[2023-01-20] MEDS: MEROPENEM INJ 1 GM in IV 1 EA IV SCH ×3 (02:18→17:59)
[2023-01-20 05:33] VITALS: BP 143/78
[2023-01-20] MEDS: ACETAMINOPHEN 325 MG TAB PO SCH ×4 (06:02→23:44)
[2023-01-20] MEDS: oxyCODONE 5MG TAB PO PRN ×3 (06:04→19:19)
[2023-01-20 06:13] LABS: BASO % 0.3 % (0.0-1.0); EOS # 0.2 10^3/uL (0.0-0.5); EOS % 1.4 % (0.0-3.0); HEMOGLOBIN 9.2 g/dl (13.5-17.5); LYMPH # 1.6 10^3/uL (1.5-5.0); LYMPH % 15.6 % (24.0-44.0); MEAN CORPUSCULAR HEMOGLOBIN 27.1 pg (27.0-33.0); MEAN CORPUSCULAR HGB CONC 30.7 g/dl (32.0-36.5); MEAN CORPUSCULAR VOLUME 88.5 fl (80.0-96.0); MONO # 1.2 10^3/uL (0.0-0.8); NEUTROPHILS # 7.4 10^3/uL (1.5-8.5); NEUTROPHILS % 70.6 % (36.0-66.0); PLATELET COUNT, AUTOMATED 432 10^3/uL (150-450); RED BLOOD COUNT 3.39 10^6/uL (4.30-6.10); WHITE BLOOD COUNT 10.5 10^3/uL (4.0-10.0)
[2023-01-20 06:35] LABS: BLOOD UREA NITROGEN 28 MG/DL (9-23); CALCIUM LEVEL 8.1 MG/DL (8.3-10.6); CARBON DIOXIDE LEVEL 32 MMOL/L (20-31); CHLORIDE LEVEL 103 MMOL/L (98-107); CREATININE FOR GFR 0.84 MG/DL (0.70-1.30); GLOMERULAR FILTRATION RATE > 60.0 (>49); GLUCOSE, FASTING 127 MG/DL (74-106); POTASSIUM SERUM 4.2 MMOL/L (3.5-5.1); SODIUM LEVEL 139 MMOL/L (136-145)
[2023-01-20 07:00] VITALS: BP_SYST 146; BP_DIAS 7; BP_DIAS 79
[2023-01-20] MEDS: INSULIN LISPRO (NovoLOG) PER UNIT SC SCH ×7 (08:36→20:31)
[2023-01-20] MEDS: LIDOCAINE 5% (LIDODERM) PATCH TOP SCH (09:00)
[2023-01-20] MEDS: FERROUS SULFATE 325MG TAB PO SCH (09:54)
[2023-01-20] MEDS: PYRIDOSTIGMINE 60MG TABLET PO SCH ×3 (09:54→20:31)
[2023-01-20] MEDS: IRBESARTAN 150MG TAB PO SCH (09:55)
[2023-01-20] MEDS: predniSONE 5 MG TAB PO SCH (09:55)
[2023-01-20] MEDS: ATOVAQUONE SUSP 750MG/5ML 210 ML BTL PO SCH (09:57)
[2023-01-20] MEDS: LIDOCAINE 5% (LIDODERM) PATCH TD SCH (09:57)
[2023-01-20] MEDS: ENOXAPARIN 40MG/0.4ML SYRINGE (J1650 PER 10MG) SC SCH (09:58)
[2023-01-20] MEDS: LEVEMIR (INSULIN DETEMIR) 1 UNITS/0.01ML SC SCH (09:58)
[2023-01-20] MEDS: MORPHINE 4 MG/ML 1ML VIAL IV PRN ×5 (10:29→23:44)
[2023-01-20 11:00] VITALS: BP 141/74
[2023-01-20] MEDS ORDERED: LEVEMIR (INSULIN DETEMIR) 1 UNITS/0.01ML SC ONE (11:00)
[2023-01-20] MEDS: GABAPENTIN 100 MG CAP PO SCH ×2 (11:34→20:31)
[2023-01-20] MEDS: LIDOCAINE 4% CREAM 5GM (LMX4) TOP SCH (12:42)
[2023-01-20] MEDS: MUPIROCIN 2% OINT 22 GM TUBE TOP SCH (12:43)
[2023-01-20] MEDS: SANTYL OINT 30GM TOP SCH (12:43)
[2023-01-20 14:00] VITALS: BP 136/73
[2023-01-20 19:33] VITALS: BP 140/73
[2023-01-20] MEDS ORDERED: BOOSTRIX VACCINE (TETANUS/DIPHTH/ACEL. PERTUSSIS) 0.5ML SYR IM ONE (20:00)
[2023-01-20] MEDS: ATORVASTATIN 20 MG TAB PO SCH (20:31)
[2023-01-21] MEDS: MEROPENEM INJ 1 GM in IV 1 EA IV SCH ×3 (02:19→18:06)
[2023-01-21] MEDS: oxyCODONE 5MG TAB PO PRN ×2 (02:19→06:10)
[2023-01-21] MEDS: MORPHINE 4 MG/ML 1ML VIAL IV PRN ×5 (03:37→19:42)
[2023-01-21 06:00] VITALS: BP 139/73
[2023-01-21] MEDS: ACETAMINOPHEN 325 MG TAB PO SCH ×3 (06:09→18:06)
[2023-01-21 06:43] LABS: BASO % 0.4 % (0.0-1.0); EOS # 0.2 10^3/uL (0.0-0.5); EOS % 1.6 % (0.0-3.0); HEMOGLOBIN 9.3 g/dl (13.5-17.5); LYMPH # 1.9 10^3/uL (1.5-5.0); LYMPH % 16.8 % (24.0-44.0); MEAN CORPUSCULAR HEMOGLOBIN 27.1 pg (27.0-33.0); MEAN CORPUSCULAR VOLUME 87.5 fl (80.0-96.0); MONO # 1.3 10^3/uL (0.0-0.8); MONO % 12.1 % (2.0-8.0); NEUTROPHILS # 7.6 10^3/uL (1.5-8.5); NEUTROPHILS % 68.2 % (36.0-66.0); PLATELET COUNT, AUTOMATED 429 10^3/uL (150-450); RED BLOOD COUNT 3.43 10^6/uL (4.30-6.10); WHITE BLOOD COUNT 11.1 10^3/uL (4.0-10.0)
[2023-01-21 07:10] LABS: BLOOD UREA NITROGEN 28 MG/DL (9-23); CALCIUM LEVEL 8.2 MG/DL (8.3-10.6); CARBON DIOXIDE LEVEL 30 MMOL/L (20-31); CHLORIDE LEVEL 103 MMOL/L (98-107); CREATININE FOR GFR 0.78 MG/DL (0.70-1.30); GLOMERULAR FILTRATION RATE > 60.0 (>49); GLUCOSE, FASTING 116 MG/DL (74-106); POTASSIUM SERUM 4.3 MMOL/L (3.5-5.1); SODIUM LEVEL 139 MMOL/L (136-145)
[2023-01-21] MEDS: INSULIN LISPRO (NovoLOG) PER UNIT SC SCH ×7 (07:20→20:25)
[2023-01-21] MEDS ORDERED: MORPHINE 2 MG/ML 1ML VIAL IV PRN (07:50)
[2023-01-21] MEDS: IRBESARTAN 150MG TAB PO SCH (08:07)
[2023-01-21 08:16] LABS: ERYTHROCYTE SEDIMENTATION RATE 32 mm/hr (0-20)
[2023-01-21] MEDS: PYRIDOSTIGMINE 60MG TABLET PO SCH ×3 (08:16→19:42)
[2023-01-21] MEDS: ATOVAQUONE SUSP 750MG/5ML 210 ML BTL PO SCH (08:16)
[2023-01-21] MEDS: GABAPENTIN 100 MG CAP PO SCH ×3 (08:16→19:43)
[2023-01-21] MEDS: ENOXAPARIN 40MG/0.4ML SYRINGE (J1650 PER 10MG) SC SCH (08:16)
[2023-01-21] MEDS: predniSONE 5 MG TAB PO SCH (08:17)
[2023-01-21] MEDS: FERROUS SULFATE 325MG TAB PO SCH (08:17)
[2023-01-21] MEDS: LEVEMIR (INSULIN DETEMIR) 1 UNITS/0.01ML SC SCH (08:17)
[2023-01-21] MEDS: LIDOCAINE 5% (LIDODERM) PATCH TOP SCH (08:18)
[2023-01-21] MEDS: LIDOCAINE 4% CREAM 5GM (LMX4) TOP SCH (08:18)
[2023-01-21] MEDS: SANTYL OINT 30GM TOP SCH (08:18)
[2023-01-21] MEDS: MUPIROCIN 2% OINT 22 GM TUBE TOP SCH (08:19)
[2023-01-21] MEDS: LIDOCAINE 5% (LIDODERM) PATCH TD SCH (08:19)
[2023-01-21] MEDS ORDERED: LEVEMIR (INSULIN DETEMIR) 1 UNITS/0.01ML SC SCH (09:00)
[2023-01-21 14:00] VITALS: BP 135/80
[2023-01-21 19:40] VITALS: BP 109/57
[2023-01-21] MEDS: ATORVASTATIN 20 MG TAB PO SCH (19:43)
[2023-01-21] MEDS ORDERED: KETOROLAC 30 MG/ML 1ML VIAL IV ONE (20:15)
[2023-01-22] MEDS: MEROPENEM INJ 1 GM in IV 1 EA IV SCH ×3 (02:35→18:29)
[2023-01-22] MEDS: MORPHINE 4 MG/ML 1ML VIAL IV PRN (02:35)
[2023-01-22] MEDS: KETOROLAC 30 MG/ML 1ML VIAL IV PRN ×3 (02:59→18:27)
[2023-01-22] MEDS: ACETAMINOPHEN 325 MG TAB PO SCH ×4 (05:37→18:29)
[2023-01-22 05:53] VITALS: BP 125/66
[2023-01-22 06:39] LABS: BASO % 0.3 % (0.0-1.0); EOS # 0.3 10^3/uL (0.0-0.5); EOS % 2.3 % (0.0-3.0); HEMATOCRIT 28.7 % (42.0-52.0); HEMOGLOBIN 8.9 g/dl (13.5-17.5); LYMPH # 1.7 10^3/uL (1.5-5.0); LYMPH % 15.1 % (24.0-44.0); MEAN CORPUSCULAR HEMOGLOBIN 27.4 pg (27.0-33.0); MEAN CORPUSCULAR VOLUME 88.3 fl (80.0-96.0); MONO # 1.3 10^3/uL (0.0-0.8); MONO % 11.2 % (2.0-8.0); NEUTROPHILS # 7.9 10^3/uL (1.5-8.5); NEUTROPHILS % 70.1 % (36.0-66.0); PLATELET COUNT, AUTOMATED 407 10^3/uL (150-450); RED BLOOD COUNT 3.25 10^6/uL (4.30-6.10); WHITE BLOOD COUNT 11.3 10^3/uL (4.0-10.0)
[2023-01-22 07:02] LABS: BLOOD UREA NITROGEN 35 MG/DL (9-23); CALCIUM LEVEL 7.8 MG/DL (8.3-10.6); CARBON DIOXIDE LEVEL 30 MMOL/L (20-31); CHLORIDE LEVEL 103 MMOL/L (98-107); CREATININE FOR GFR 0.83 MG/DL (0.70-1.30); GLOMERULAR FILTRATION RATE > 60.0 (>49); GLUCOSE, FASTING 135 MG/DL (74-106); POTASSIUM SERUM 4.4 MMOL/L (3.5-5.1); SODIUM LEVEL 138 MMOL/L (136-145)
[2023-01-22] MEDS: INSULIN LISPRO (NovoLOG) PER UNIT SC SCH ×7 (07:58→20:53)
[2023-01-22] MEDS: PYRIDOSTIGMINE 60MG TABLET PO SCH ×3 (07:58→20:53)
[2023-01-22] MEDS: IRBESARTAN 150MG TAB PO SCH (08:54)
[2023-01-22] MEDS: LIDOCAINE 5% (LIDODERM) PATCH TD SCH (09:00)
[2023-01-22] MEDS: LEVEMIR (INSULIN DETEMIR) 1 UNITS/0.01ML SC SCH (09:10)
[2023-01-22] MEDS: ATOVAQUONE SUSP 750MG/5ML 210 ML BTL PO SCH (09:12)
[2023-01-22] MEDS: ENOXAPARIN 40MG/0.4ML SYRINGE (J1650 PER 10MG) SC SCH (09:13)
[2023-01-22] MEDS: predniSONE 5 MG TAB PO SCH (09:14)
[2023-01-22] MEDS: FERROUS SULFATE 325MG TAB PO SCH (09:14)
[2023-01-22] MEDS: GABAPENTIN 100 MG CAP PO SCH ×3 (09:15→20:53)
[2023-01-22] MEDS: LIDOCAINE 5% (LIDODERM) PATCH TOP SCH (09:16)
[2023-01-22] MEDS: MUPIROCIN 2% OINT 22 GM TUBE TOP SCH (09:18)
[2023-01-22 14:00] VITALS: BP 127/68
[2023-01-22 20:43] VITALS: BP 141/61
[2023-01-22] MEDS: ATORVASTATIN 20 MG TAB PO SCH (20:53)
[2023-01-23] MEDS: MEROPENEM INJ 1 GM in IV 1 EA IV SCH ×3 (02:47→18:29)
[2023-01-23] MEDS: KETOROLAC 30 MG/ML 1ML VIAL IV PRN ×4 (02:47→21:49)
[2023-01-23] MEDS: ACETAMINOPHEN 325 MG TAB PO SCH ×4 (05:56→18:30)
[2023-01-23 05:58] VITALS: BP 140/74
[2023-01-23 07:04] LABS: BASO % 0.2 % (0.0-1.0); EOS # 0.2 10^3/uL (0.0-0.5); EOS % 1.4 % (0.0-3.0); HEMATOCRIT 29.3 % (42.0-52.0); HEMOGLOBIN 9.1 g/dl (13.5-17.5); LYMPH # 1.6 10^3/uL (1.5-5.0); LYMPH % 14.3 % (24.0-44.0); MEAN CORPUSCULAR HEMOGLOBIN 27.2 pg (27.0-33.0); MEAN CORPUSCULAR HGB CONC 31.1 g/dl (32.0-36.5); MEAN CORPUSCULAR VOLUME 87.5 fl (80.0-96.0); MONO # 1.5 10^3/uL (0.0-0.8); MONO % 12.7 % (2.0-8.0); NEUTROPHILS # 8.1 10^3/uL (1.5-8.5); NEUTROPHILS % 70.6 % (36.0-66.0); PLATELET COUNT, AUTOMATED 400 10^3/uL (150-450); RED BLOOD COUNT 3.35 10^6/uL (4.30-6.10); WHITE BLOOD COUNT 11.5 10^3/uL (4.0-10.0)
[2023-01-23] MEDS: INSULIN LISPRO (NovoLOG) PER UNIT SC SCH ×6 (07:30→18:31)
[2023-01-23 07:33] LABS: BLOOD UREA NITROGEN 34 MG/DL (9-23); CALCIUM LEVEL 7.5 MG/DL (8.3-10.6); CARBON DIOXIDE LEVEL 30 MMOL/L (20-31); CHLORIDE LEVEL 106 MMOL/L (98-107); CREATININE FOR GFR 0.81 MG/DL (0.70-1.30); GLOMERULAR FILTRATION RATE > 60.0 (>49); GLUCOSE, FASTING 113 MG/DL (74-106); POTASSIUM SERUM 4.3 MMOL/L (3.5-5.1); SODIUM LEVEL 140 MMOL/L (136-145)
[2023-01-23] MEDS: ATOVAQUONE SUSP 750MG/5ML 210 ML BTL PO SCH (08:57)
[2023-01-23] MEDS: LEVEMIR (INSULIN DETEMIR) 1 UNITS/0.01ML SC SCH (08:57)
[2023-01-23] MEDS: GABAPENTIN 100 MG CAP PO SCH ×3 (08:58→21:22)
[2023-01-23] MEDS: ENOXAPARIN 40MG/0.4ML SYRINGE (J1650 PER 10MG) SC SCH (08:58)
[2023-01-23] MEDS: IRBESARTAN 150MG TAB PO SCH (08:59)
[2023-01-23] MEDS: PYRIDOSTIGMINE 60MG TABLET PO SCH ×3 (08:59→21:22)
[2023-01-23] MEDS: predniSONE 5 MG TAB PO SCH (08:59)
[2023-01-23] MEDS: FERROUS SULFATE 325MG TAB PO SCH (08:59)
[2023-01-23] MEDS: LIDOCAINE 5% (LIDODERM) PATCH TOP SCH (09:00)
[2023-01-23] MEDS: LIDOCAINE 5% (LIDODERM) PATCH TD SCH (09:00)
[2023-01-23] MEDS: MUPIROCIN 2% OINT 22 GM TUBE TOP SCH (09:00)
[2023-01-23 14:00] VITALS: BP 148/73
[2023-01-23] MEDS ORDERED: INSULIN LISPRO (NovoLOG) PER UNIT SC SCH ×3 (17:30→21:00)
[2023-01-23] MEDS: ATORVASTATIN 20 MG TAB PO SCH (21:22)
[2023-01-23 21:32] VITALS: BP 139/71
[2023-01-24] MEDS: ACETAMINOPHEN 325 MG TAB PO SCH ×5 (00:13→23:42)
[2023-01-24] MEDS: MEROPENEM INJ 1 GM in IV 1 EA IV SCH ×3 (02:35→18:50)
[2023-01-24] MEDS: KETOROLAC 30 MG/ML 1ML VIAL IV PRN ×3 (04:58→23:43)
[2023-01-24 05:40] VITALS: BP 140/76
[2023-01-24 06:16] LABS: BASO % 0.4 % (0.0-1.0); EOS # 0.2 10^3/uL (0.0-0.5); EOS % 1.8 % (0.0-3.0); HEMOGLOBIN 8.9 g/dl (13.5-17.5); LYMPH # 1.6 10^3/uL (1.5-5.0); LYMPH % 14.3 % (24.0-44.0); MEAN CORPUSCULAR HEMOGLOBIN 27.1 pg (27.0-33.0); MEAN CORPUSCULAR HGB CONC 30.7 g/dl (32.0-36.5); MEAN CORPUSCULAR VOLUME 88.1 fl (80.0-96.0); MONO # 1.4 10^3/uL (0.0-0.8); MONO % 13.1 % (2.0-8.0); NEUTROPHILS # 7.6 10^3/uL (1.5-8.5); NEUTROPHILS % 69.8 % (36.0-66.0); PLATELET COUNT, AUTOMATED 383 10^3/uL (150-450); RED BLOOD COUNT 3.29 10^6/uL (4.30-6.10); WHITE BLOOD COUNT 10.8 10^3/uL (4.0-10.0)
[2023-01-24 06:36] LABS: BLOOD UREA NITROGEN 38 MG/DL (9-23); CALCIUM LEVEL 7.7 MG/DL (8.3-10.6); CARBON DIOXIDE LEVEL 29 MMOL/L (20-31); CHLORIDE LEVEL 108 MMOL/L (98-107); CREATININE FOR GFR 0.76 MG/DL (0.70-1.30); GLOMERULAR FILTRATION RATE > 60.0 (>49); GLUCOSE, FASTING 106 MG/DL (74-106); POTASSIUM SERUM 4.2 MMOL/L (3.5-5.1); SODIUM LEVEL 140 MMOL/L (136-145)
[2023-01-24 07:28] VITALS: BP 144/80
[2023-01-24] MEDS: INSULIN LISPRO (NovoLOG) PER UNIT SC SCH ×4 (07:30→18:51)
[2023-01-24] MEDS ORDERED: INSULIN LISPRO (NovoLOG) PER UNIT SC SCH ×2 (07:30→12:00)
[2023-01-24] MEDS: ATOVAQUONE SUSP 750MG/5ML 210 ML BTL PO SCH (08:36)
[2023-01-24] MEDS: predniSONE 5 MG TAB PO SCH (08:36)
[2023-01-24] MEDS: GABAPENTIN 100 MG CAP PO SCH ×3 (08:36→20:51)
[2023-01-24] MEDS: FERROUS SULFATE 325MG TAB PO SCH (08:36)
[2023-01-24] MEDS: PYRIDOSTIGMINE 60MG TABLET PO SCH ×3 (08:36→20:51)
[2023-01-24] MEDS: IRBESARTAN 150MG TAB PO SCH (08:36)
[2023-01-24] MEDS: ENOXAPARIN 40MG/0.4ML SYRINGE (J1650 PER 10MG) SC SCH (08:37)
[2023-01-24] MEDS: LIDOCAINE 5% (LIDODERM) PATCH TOP SCH ×2 (08:38→20:52)
[2023-01-24] MEDS: LIDOCAINE 5% (LIDODERM) PATCH TD SCH (08:40)
[2023-01-24] MEDS ORDERED: LEVEMIR (INSULIN DETEMIR) 1 UNITS/0.01ML SC SCH (09:00)
[2023-01-24] MEDS: MUPIROCIN 2% OINT 22 GM TUBE TOP SCH (10:01)
[2023-01-24] MEDS: LEVEMIR (INSULIN DETEMIR) 1 UNITS/0.01ML SC SCH (10:17)
[2023-01-24 14:00] VITALS: BP 140/60
[2023-01-24] MEDS: ATORVASTATIN 20 MG TAB PO SCH (20:51)
[2023-01-24] MEDS: metroNIDAZOLE (FLAGYL) 500MG TABLET PO SCH (23:43)
[2023-01-25] MEDS: ACETAMINOPHEN 325 MG TAB PO SCH ×2 (05:19→13:31)
[2023-01-25] MEDS: metroNIDAZOLE (FLAGYL) 500MG TABLET PO SCH ×2 (05:19→13:31)
[2023-01-25] MEDS ORDERED: CIPROFLOXACIN 500MG TABLET PO SCH (06:00)
[2023-01-25 06:32] VITALS: BP 145/72
[2023-01-25 06:58] LABS: HEMATOCRIT 28.1 % (42.0-52.0); HEMOGLOBIN 8.5 g/dl (13.5-17.5); MEAN CORPUSCULAR HEMOGLOBIN 27.2 pg (27.0-33.0); MEAN CORPUSCULAR HGB CONC 30.2 g/dl (32.0-36.5); MEAN CORPUSCULAR VOLUME 89.8 fl (80.0-96.0); PLATELET COUNT, AUTOMATED 391 10^3/uL (150-450); RED BLOOD COUNT 3.13 10^6/uL (4.30-6.10); WHITE BLOOD COUNT 10.8 10^3/uL (4.0-10.0)
[2023-01-25 07:08] LABS: BLOOD UREA NITROGEN 29 MG/DL (9-23); CALCIUM LEVEL 7.8 MG/DL (8.3-10.6); CARBON DIOXIDE LEVEL 28 MMOL/L (20-31); CHLORIDE LEVEL 108 MMOL/L (98-107); GLOMERULAR FILTRATION RATE > 60.0 (>49); GLUCOSE, FASTING 106 MG/DL (74-106); POTASSIUM SERUM 4.5 MMOL/L (3.5-5.1); SODIUM LEVEL 140 MMOL/L (136-145)
[2023-01-25] MEDS: INSULIN LISPRO (NovoLOG) PER UNIT SC SCH ×2 (07:30→13:32)
[2023-01-25] MEDS ORDERED: INSULIN LISPRO (NovoLOG) PER UNIT SC SCH ×5 (07:30→17:30)
[2023-01-25] MEDS: predniSONE 5 MG TAB PO SCH (09:28)
[2023-01-25] MEDS: FERROUS SULFATE 325MG TAB PO SCH (09:28)
[2023-01-25] MEDS: ENOXAPARIN 40MG/0.4ML SYRINGE (J1650 PER 10MG) SC SCH (09:28)
[2023-01-25] MEDS: GABAPENTIN 100 MG CAP PO SCH (09:29)
[2023-01-25 09:30] VITALS: BP 142/81
[2023-01-25] MEDS: IRBESARTAN 150MG TAB PO SCH (09:30)
[2023-01-25] MEDS: LEVEMIR (INSULIN DETEMIR) 1 UNITS/0.01ML SC SCH (09:32)
[2023-01-25] MEDS: ATOVAQUONE SUSP 750MG/5ML 210 ML BTL PO SCH (09:32)
[2023-01-25] MEDS: LIDOCAINE 5% (LIDODERM) PATCH TD SCH (09:33)
[2023-01-25] MEDS: LIDOCAINE 5% (LIDODERM) PATCH TOP SCH (09:34)
[2023-01-25] MEDS: MUPIROCIN 2% OINT 22 GM TUBE TOP SCH (09:34)
[2023-01-25] MEDS: PYRIDOSTIGMINE 60MG TABLET PO SCH (09:38)
[2023-01-25] MEDS: KETOROLAC 30 MG/ML 1ML VIAL IV PRN (10:29)
[2023-01-25] MEDS ORDERED: CIPR-249 PO (10:57)
[2023-01-25] MEDS ORDERED: METR-265 PO (10:57)
[2023-01-25] MEDS ORDERED: GLIM1TAB4 PO (10:57)
[2023-01-25 14:19] VITALS: BP 138/83
[2023-01-26] MEDS ORDERED: INSULIN LISPRO (NovoLOG) PER UNIT SC SCH (07:30)
== END 2023-01-25 16:25 | disposition home health service (06) | DRG 982 ==
LOC: EEVIPCON 21:05 → M MS5PR 21:05
PROVIDERS: ADMIT Family Medicine; ATTEND Internal Medicine
PROC: 0KBT0ZZ Excision of Left Lower Leg Muscle, Open Approach (ICD-10-PCS; 2023-01-17)
PROC: 0YU Anatomical Regions, Lower Extremities, Supplement (ICD-10-PCS; 2023-01-17)
PROC: 0QBJ0ZZ Excision of Right Fibula, Open Approach (ICD-10-PCS; principal; 2023-01-17 12:10)
DX: E11.51 Type 2 diabetes mellitus with diabetic peripheral angiopathy without gangrene (principal); E87.20 Acidosis, unspecified; D84.821 Immunodeficiency due to drugs; L97.928 Non-pressure chronic ulcer of unspecified part of left lower leg with other specified severity; L97.918 Non-pressure chronic ulcer of unspecified part of right lower leg with other specified severity; L94.2 Calcinosis cutis; E11.65 Type 2 diabetes mellitus with hyperglycemia; B96.5 Pseudomonas (aeruginosa) (mallei) (pseudomallei) as the cause of diseases classified elsewhere; G47.33 Obstructive sleep apnea (adult) (pediatric); G70.00 Myasthenia gravis without (acute) exacerbation; E78.5 Hyperlipidemia, unspecified; D64.9 Anemia, unspecified; L08.9 Local infection of the skin and subcutaneous tissue, unspecified; E11.42 Type 2 diabetes mellitus with diabetic polyneuropathy; B96.20 Unspecified Escherichia coli [E. coli] as the cause of diseases classified elsewhere; I10 Essential (primary) hypertension; R00.1 Bradycardia, unspecified; T38.0X5A Adverse effect of glucocorticoids and synthetic analogues, initial encounter; Z96.643 Presence of artificial hip joint, bilateral; Z96.611 Presence of right artificial shoulder joint; Z96.612 Presence of left artificial shoulder joint; Z98.42 Cataract extraction status, left eye; Z98.41 Cataract extraction status, right eye; Z79.84 Long term (current) use of oral hypoglycemic drugs; Z79.52 Long term (current) use of systemic steroids; Z88.1 Allergy status to other antibiotic agents; Z88.2 Allergy status to sulfonamides; Z88.8 Allergy status to other drugs, medicaments and biological substances; Z86.16 Personal history of COVID-19

== ENCOUNTER 2023-03-21 11:06 | Inpatient (IN) | payer MEDICARE, BC, OTHER ==
[~2023-03-21] VITALS: Ht 177.8 cm; Wt 88.2 kg
[~2023-03-21 11:06] MED LIST changes: +ACET-897 PO; +CIPR-249 PO; +FARX1TAB5 PO; +META28PO PO; +METR-265 PO; +OMEG100011 PO; +PRED5TA PO; +VITMTA PO
[2023-03-21] MEDS ORDERED: CIPROFLOXACIN 400 MG in IV 1 EA IV ONE (11:10)
[2023-03-21 11:44] LABS: HEMATOCRIT 35.4 % (42.0-52.0); HEMOGLOBIN 11.3 g/dl (13.5-17.5); MEAN CORPUSCULAR HEMOGLOBIN 27.2 pg (27.0-33.0); MEAN CORPUSCULAR HGB CONC 31.9 g/dl (32.0-36.5); MEAN CORPUSCULAR VOLUME 85.3 fl (80.0-96.0); PLATELET COUNT, AUTOMATED 304 10^3/uL (150-450); RED BLOOD COUNT 4.15 10^6/uL (4.30-6.10); WHITE BLOOD COUNT 13.5 10^3/uL (4.0-10.0)
[2023-03-21] MEDS ORDERED: LR 1,000 ML IV SCH ×2 (11:50→14:20)
[2023-03-21] MEDS ORDERED: MIDAZOLAM INJ 2MG/2ML VIAL As Ordered ONE (11:54)
[2023-03-21] MEDS ORDERED: LIDOCAINE 2% 100MG/5ML SDV (FOR ANES.) As Ordered ONE (11:54)
[2023-03-21] MEDS ORDERED: ONDANSETRON 4MG 2ML VIAL As Ordered ONE (11:54)
[2023-03-21] MEDS ORDERED: propofoL 200 MG/20 ML VIAL As Ordered ONE (11:54)
[2023-03-21] MEDS ORDERED: fentaNYL 100 MCG/2 ML INJECTION As Ordered ONE (11:55)
[2023-03-21] MEDS ORDERED: LIDOCAINE 1% SDV 5ML VIAL SC PRN (12:00)
[2023-03-21 12:01] LABS: BLOOD UREA NITROGEN 22 MG/DL (9-23); CALCIUM LEVEL 8.3 MG/DL (8.3-10.6); CARBON DIOXIDE LEVEL 26 MMOL/L (20-31); CHLORIDE LEVEL 105 MMOL/L (98-107); CREATININE FOR GFR 0.77 MG/DL (0.70-1.30); GLOMERULAR FILTRATION RATE > 60.0 (>49); GLUCOSE, FASTING 125 MG/DL (74-106); SODIUM LEVEL 137 MMOL/L (136-145)
[2023-03-21] MEDS ORDERED: EPINEPHrine INJ 1 MG/ML 1ML AMP As Ordered ONE (12:33)
[2023-03-21] MEDS ORDERED: GENTAMICIN SULF 80MG/2ML VIAL As Ordered ONE (12:33)
[2023-03-21] MEDS ORDERED: LACRILUBE (AKWA TEARS) OPHTH OINT 3.5GM As Ordered ONE (13:15)
[2023-03-21] MEDS ORDERED: ePHEDrine SULFATE 25 MG/5 ML(5MG/ML) SYRINGE As Ordered ONE ×2 (13:23→13:33)
[2023-03-21] MEDS ORDERED: PHENYLephrine 500MCG 5ML (100MCG/ML) SYRINGE As Ordered ONE (13:33)
[2023-03-21] MEDS ORDERED: ACETAMINOPHEN 1000MG 100ML IV BAG As Ordered ONE (13:56)
[2023-03-21] MEDS ORDERED: HYDROmorphone HCL 2MG/ML 1ML VIAL As Ordered ONE (14:01)
[2023-03-21] MEDS ORDERED: oxyCODONE 5MG TAB PO PRN (14:20)
[2023-03-21] MEDS ORDERED: HYDROMORPHONE HCL 0.5 MG/ 0.5 ML SYRINGE IV PRN (14:20)
[2023-03-21] MEDS ORDERED: fentaNYL 100 MCG/2 ML INJECTION IV PRN (14:20)
[2023-03-21] MEDS ORDERED: ONDANSETRON 4MG 2ML VIAL IV PRN (14:20)
[2023-03-21] MEDS ORDERED: INSULIN LISPRO (NovoLOG) PER UNIT SC PRN (14:35)
[2023-03-21 15:34] VITALS: BP 128/81; TEMP 97.2; O2SAT 89
[2023-03-21 15:54] VITALS: BP 128/78; TEMP 97.1; O2SAT 91
[2023-03-21 16:18] VITALS: BP 126/81; TEMP 96.6; O2SAT 94
[2023-03-21] MEDS ORDERED: GLUCAGON INJ 1MG VIAL SC PRN (16:40)
[2023-03-21] MEDS ORDERED: GLUCOSE 4GM CHEW TABLET PO PRN (16:40)
[2023-03-21] MEDS ORDERED: DEXTROSE 50% 50ML SYRINGE IV PRN (16:40)
[2023-03-21] MEDS ORDERED: MORPHINE 2 MG/ML 1ML VIAL IV PRN (16:45)
[2023-03-21] MEDS ORDERED: PERCOCET 5MG/325MG TAB PO PRN (16:45)
[2023-03-21] MEDS ORDERED: MIRALAX *UNIT DOSE* 17GM PACKET PO PRN (17:05)
[2023-03-21] MEDS: ATORVASTATIN 20 MG TAB PO SCH (17:12)
[2023-03-21] MEDS: INSULIN LISPRO (NovoLOG) PER UNIT SC SCH ×2 (17:12→21:00)
[2023-03-21 17:25] VITALS: BP 124/61; TEMP 96.6; O2SAT 92
[2023-03-21] MEDS: PERCOCET 5MG/325MG TAB PO PRN (20:11)
[2023-03-21 21:11] VITALS: BP 115/72; TEMP 97.7; O2SAT 94
[2023-03-21] MEDS: PYRIDOSTIGMINE 60MG TABLET PO SCH (22:31)
[2023-03-21] MEDS: SENNA 8.6 MG TAB (SENOKOT) PO SCH (22:31)
[2023-03-21] MEDS: DOCUSATE SODIUM 100MG CAPSULE PO SCH (22:31)
[2023-03-22 02:00] VITALS: BP 110/76; TEMP 97.8; O2SAT 93
[2023-03-22] MEDS: PERCOCET 5MG/325MG TAB PO PRN (02:02)
[2023-03-22] MEDS ORDERED: GLIM1TAB4 PO (03:59)
[2023-03-22] MEDS ORDERED: FARX1TAB3 PO (03:59)
[2023-03-22] MEDS ORDERED: HOME MED LIST COMPLETE! XX SCH (04:00)
[2023-03-22 06:12] LABS: ALKALINE PHOSPHATASE 76 U/L (46-116); ALT/SGPT 27 U/L (7.0-40); AST/SGOT 12 U/L (<34); BILIRUBIN,TOTAL 0.2 MG/DL (0.3-1.2); BLOOD UREA NITROGEN 20 MG/DL (9-23); CALCIUM LEVEL 7.7 MG/DL (8.3-10.6); CARBON DIOXIDE LEVEL 30 MMOL/L (20-31); CHLORIDE LEVEL 104 MMOL/L (98-107); CREATININE FOR GFR 0.88 MG/DL (0.70-1.30); GLOMERULAR FILTRATION RATE > 60.0 (>49); GLUCOSE, FASTING 150 MG/DL (74-106); HEMATOCRIT 29.9 % (42.0-52.0); HEMOGLOBIN 9.4 g/dl (13.5-17.5); MEAN CORPUSCULAR HGB CONC 31.4 g/dl (32.0-36.5); MEAN CORPUSCULAR VOLUME 85.9 fl (80.0-96.0); PLATELET COUNT, AUTOMATED 258 10^3/uL (150-450); POTASSIUM SERUM 4.3 MMOL/L (3.5-5.1); RED BLOOD COUNT 3.48 10^6/uL (4.30-6.10); SODIUM LEVEL 137 MMOL/L (136-145); WHITE BLOOD COUNT 10.4 10^3/uL (4.0-10.0)
[2023-03-22 06:19] LABS: INR 0.96
[2023-03-22 06:47] VITALS: BP 111/78; TEMP 97.6; O2SAT 92
[2023-03-22] MEDS: ATOVAQUONE SUSP 750MG/5ML 210 ML BTL PO SCH (08:57)
[2023-03-22] MEDS: MULTIVITAMINS/MINERALS THERAP 1 TAB PO SCH (08:57)
[2023-03-22] MEDS: predniSONE 5 MG TAB PO SCH (08:57)
[2023-03-22] MEDS: PYRIDOSTIGMINE 60MG TABLET PO SCH ×3 (08:57→20:47)
[2023-03-22] MEDS: DOCUSATE SODIUM 100MG CAPSULE PO SCH ×2 (08:57→20:47)
[2023-03-22] MEDS: INSULIN LISPRO (NovoLOG) PER UNIT SC SCH ×4 (08:58→21:00)
[2023-03-22] MEDS: SANTYL OINT 30GM TOP SCH (08:58)
[2023-03-22] MEDS: LIDOCAINE 5% (LIDODERM) PATCH TOP SCH (08:59)
[2023-03-22] MEDS: FERROUS SULFATE 325MG TAB PO SCH (12:06)
[2023-03-22] MEDS: IRBESARTAN 150MG TAB PO SCH (15:23)
[2023-03-22] MEDS: ATORVASTATIN 20 MG TAB PO SCH (17:23)
[2023-03-22] MEDS: SENNA 8.6 MG TAB (SENOKOT) PO SCH (20:47)
[2023-03-22 21:22] VITALS: BP 122/69; TEMP 98.1; O2SAT 91
[2023-03-23 05:53] LABS: HEMATOCRIT 31.1 % (42.0-52.0); HEMOGLOBIN 9.5 g/dl (13.5-17.5); MEAN CORPUSCULAR HEMOGLOBIN 26.5 pg (27.0-33.0); MEAN CORPUSCULAR HGB CONC 30.5 g/dl (32.0-36.5); MEAN CORPUSCULAR VOLUME 86.9 fl (80.0-96.0); PLATELET COUNT, AUTOMATED 272 10^3/uL (150-450); RED BLOOD COUNT 3.58 10^6/uL (4.30-6.10); WHITE BLOOD COUNT 10.2 10^3/uL (4.0-10.0)
[2023-03-23 06:10] LABS: ALKALINE PHOSPHATASE 72 U/L (46-116); ALT/SGPT 24 U/L (7.0-40); AST/SGOT 19 U/L (<34); BILIRUBIN,TOTAL 0.2 MG/DL (0.3-1.2); BLOOD UREA NITROGEN 25 MG/DL (9-23); CALCIUM LEVEL 8.8 MG/DL (8.3-10.6); CARBON DIOXIDE LEVEL 30 MMOL/L (20-31); CHLORIDE LEVEL 103 MMOL/L (98-107); CREATININE FOR GFR 0.83 MG/DL (0.70-1.30); GLOMERULAR FILTRATION RATE > 60.0 (>49); GLUCOSE, FASTING 132 MG/DL (74-106); POTASSIUM SERUM 3.9 MMOL/L (3.5-5.1); SODIUM LEVEL 138 MMOL/L (136-145); TOTAL PROTEIN 5.1 G/DL (5.7-8.2)
[2023-03-23 06:46] VITALS: BP 121/67; TEMP 98; O2SAT 93
[2023-03-23] MEDS: predniSONE 5 MG TAB PO SCH (08:07)
[2023-03-23] MEDS: DOCUSATE SODIUM 100MG CAPSULE PO SCH ×2 (08:07→20:59)
[2023-03-23] MEDS: MULTIVITAMINS/MINERALS THERAP 1 TAB PO SCH (08:08)
[2023-03-23] MEDS: PYRIDOSTIGMINE 60MG TABLET PO SCH ×3 (08:08→20:59)
[2023-03-23] MEDS: INSULIN LISPRO (NovoLOG) PER UNIT SC SCH ×4 (08:09→20:37)
[2023-03-23] MEDS: ATOVAQUONE SUSP 750MG/5ML 210 ML BTL PO SCH (08:09)
[2023-03-23] MEDS: LIDOCAINE 5% (LIDODERM) PATCH TOP SCH (08:10)
[2023-03-23] MEDS: SANTYL OINT 30GM TOP SCH (08:10)
[2023-03-23 09:15] LABS: PROCALCITONIN 0.07 ng/ml
[2023-03-23] MEDS: FERROUS SULFATE 325MG TAB PO SCH (12:17)
[2023-03-23] MEDS ORDERED: CEFEPIME HCL 1 GM in D5W MINI-BAG PLUS 50 ML IV SCH (13:35)
[2023-03-23] MEDS: CEFEPIME HCL 2 GM in D5W MINI-BAG PLUS 50 ML IV SCH ×2 (14:36→21:03)
[2023-03-23] MEDS: IRBESARTAN 150MG TAB PO SCH (14:39)
[2023-03-23] MEDS: ENOXAPARIN 40MG/0.4ML SYRINGE (J1650 PER 10MG) SC SCH (16:09)
[2023-03-23] MEDS: ATORVASTATIN 20 MG TAB PO SCH (18:01)
[2023-03-23 20:11] VITALS: BP 139/77; TEMP 97.9; O2SAT 90
[2023-03-23] MEDS: SENNA 8.6 MG TAB (SENOKOT) PO SCH (20:59)
[2023-03-23] MEDS: PERCOCET 5MG/325MG TAB PO PRN (21:03)
[2023-03-24] MEDS: PYRIDOSTIGMINE 60MG TABLET PO SCH ×3 (05:47→21:04)
[2023-03-24] MEDS: predniSONE 5 MG TAB PO SCH (05:47)
[2023-03-24] MEDS: CEFEPIME HCL 2 GM in D5W MINI-BAG PLUS 50 ML IV SCH ×3 (05:47→21:03)
[2023-03-24 05:57] VITALS: BP 106/64; TEMP 97.7; O2SAT 91
[2023-03-24 06:37] LABS: HEMATOCRIT 32.5 % (42.0-52.0); HEMOGLOBIN 9.9 g/dl (13.5-17.5); MEAN CORPUSCULAR HEMOGLOBIN 26.8 pg (27.0-33.0); MEAN CORPUSCULAR HGB CONC 30.5 g/dl (32.0-36.5); MEAN CORPUSCULAR VOLUME 88.1 fl (80.0-96.0); PLATELET COUNT, AUTOMATED 276 10^3/uL (150-450); RED BLOOD COUNT 3.69 10^6/uL (4.30-6.10)
[2023-03-24 06:47] LABS: ALBUMIN 2.8 G/DL (3.2-5.2); ALKALINE PHOSPHATASE 76 U/L (46-116); ALT/SGPT < 9 U/L (7.0-40); AST/SGOT 18 U/L (<34); BILIRUBIN,TOTAL 0.3 MG/DL (0.3-1.2); BLOOD UREA NITROGEN 29 MG/DL (9-23); CALCIUM LEVEL 7.9 MG/DL (8.3-10.6); CARBON DIOXIDE LEVEL 29 MMOL/L (20-31); CHLORIDE LEVEL 105 MMOL/L (98-107); CREATININE FOR GFR 0.75 MG/DL (0.70-1.30); GLOMERULAR FILTRATION RATE > 60.0 (>49); GLUCOSE, FASTING 117 MG/DL (74-106); POTASSIUM SERUM 3.9 MMOL/L (3.5-5.1); SODIUM LEVEL 139 MMOL/L (136-145); TOTAL PROTEIN 5.1 G/DL (5.7-8.2)
[2023-03-24] MEDS: MULTIVITAMINS/MINERALS THERAP 1 TAB PO SCH (07:57)
[2023-03-24] MEDS: ENOXAPARIN 40MG/0.4ML SYRINGE (J1650 PER 10MG) SC SCH (07:57)
[2023-03-24] MEDS: DOCUSATE SODIUM 100MG CAPSULE PO SCH ×2 (07:57→21:03)
[2023-03-24] MEDS: ATOVAQUONE SUSP 750MG/5ML 210 ML BTL PO SCH (07:57)
[2023-03-24] MEDS: INSULIN LISPRO (NovoLOG) PER UNIT SC SCH ×4 (07:58→21:05)
[2023-03-24] MEDS: LIDOCAINE 5% (LIDODERM) PATCH TOP SCH (07:58)
[2023-03-24] MEDS: SANTYL OINT 30GM TOP SCH (07:59)
[2023-03-24] MEDS ORDERED: LEVEMIR (INSULIN DETEMIR) 1 UNITS/0.01ML SC SCH (09:00)
[2023-03-24] MEDS: FERROUS SULFATE 325MG TAB PO SCH (12:21)
[2023-03-24] MEDS ORDERED: LEVEMIR (INSULIN DETEMIR) 1 UNITS/0.01ML SC ONE (12:30)
[2023-03-24 14:25] VITALS: BP 135/76; TEMP 97.7; O2SAT 96
[2023-03-24] MEDS: IRBESARTAN 150MG TAB PO SCH (14:25)
[2023-03-24] MEDS: ATORVASTATIN 20 MG TAB PO SCH (16:58)
[2023-03-24] MEDS: SENNA 8.6 MG TAB (SENOKOT) PO SCH (21:04)
[2023-03-24 21:05] VITALS: BP 136/76; TEMP 97.5; O2SAT 97
[2023-03-25] MEDS: CEFEPIME HCL 2 GM in D5W MINI-BAG PLUS 50 ML IV SCH ×3 (05:14→21:14)
[2023-03-25 06:28] LABS: HEMATOCRIT 34.5 % (42.0-52.0); HEMOGLOBIN 10.5 g/dl (13.5-17.5); MEAN CORPUSCULAR HEMOGLOBIN 26.7 pg (27.0-33.0); MEAN CORPUSCULAR HGB CONC 30.4 g/dl (32.0-36.5); MEAN CORPUSCULAR VOLUME 87.8 fl (80.0-96.0); PLATELET COUNT, AUTOMATED 291 10^3/uL (150-450); RED BLOOD COUNT 3.93 10^6/uL (4.30-6.10); WHITE BLOOD COUNT 10.8 10^3/uL (4.0-10.0)
[2023-03-25 06:29] VITALS: BP 132/75; TEMP 98.6; O2SAT 96
[2023-03-25 06:50] LABS: ALBUMIN 2.7 G/DL (3.2-5.2); ALKALINE PHOSPHATASE 82 U/L (46-116); ALT/SGPT 28 U/L (7.0-40); AST/SGOT 12 U/L (<34); BILIRUBIN,TOTAL 0.4 MG/DL (0.3-1.2); BLOOD UREA NITROGEN 20 MG/DL (9-23); CALCIUM LEVEL 8.7 MG/DL (8.3-10.6); CARBON DIOXIDE LEVEL 28 MMOL/L (20-31); CHLORIDE LEVEL 104 MMOL/L (98-107); CREATININE FOR GFR 0.74 MG/DL (0.70-1.30); GLOMERULAR FILTRATION RATE > 60.0 (>49); GLUCOSE, FASTING 113 MG/DL (74-106); POTASSIUM SERUM 3.8 MMOL/L (3.5-5.1); SODIUM LEVEL 139 MMOL/L (136-145); TOTAL PROTEIN 5.1 G/DL (5.7-8.2)
[2023-03-25] MEDS: DOCUSATE SODIUM 100MG CAPSULE PO SCH ×2 (08:30→21:14)
[2023-03-25] MEDS: ATOVAQUONE SUSP 750MG/5ML 210 ML BTL PO SCH (08:30)
[2023-03-25] MEDS: MULTIVITAMINS/MINERALS THERAP 1 TAB PO SCH (08:30)
[2023-03-25] MEDS: predniSONE 5 MG TAB PO SCH (08:30)
[2023-03-25] MEDS: INSULIN LISPRO (NovoLOG) PER UNIT SC SCH ×4 (08:30→21:21)
[2023-03-25] MEDS: LIDOCAINE 5% (LIDODERM) PATCH TOP SCH (08:31)
[2023-03-25] MEDS: PYRIDOSTIGMINE 60MG TABLET PO SCH ×3 (08:32→21:13)
[2023-03-25] MEDS: ENOXAPARIN 40MG/0.4ML SYRINGE (J1650 PER 10MG) SC SCH (08:33)
[2023-03-25] MEDS ORDERED: LEVEMIR (INSULIN DETEMIR) 1 UNITS/0.01ML SC SCH (09:00)
[2023-03-25] MEDS: FERROUS SULFATE 325MG TAB PO SCH (12:24)
[2023-03-25] MEDS: SANTYL OINT 30GM TOP SCH (12:25)
[2023-03-25 14:00] VITALS: BP 133/74; TEMP 97.9; O2SAT 97
[2023-03-25] MEDS: IRBESARTAN 150MG TAB PO SCH (15:39)
[2023-03-25] MEDS: ATORVASTATIN 20 MG TAB PO SCH (18:25)
[2023-03-25 21:05] VITALS: BP 126/74; TEMP 98.2; O2SAT 96
[2023-03-25] MEDS: SENNA 8.6 MG TAB (SENOKOT) PO SCH (21:13)
[2023-03-26] MEDS: CEFEPIME HCL 2 GM in D5W MINI-BAG PLUS 50 ML IV SCH ×3 (05:27→21:05)
[2023-03-26 05:33] VITALS: BP 116/71; TEMP 97.9; O2SAT 93
[2023-03-26 06:23] LABS: HEMATOCRIT 34.9 % (42.0-52.0); HEMOGLOBIN 10.9 g/dl (13.5-17.5); MEAN CORPUSCULAR HEMOGLOBIN 27.2 pg (27.0-33.0); MEAN CORPUSCULAR HGB CONC 31.2 g/dl (32.0-36.5); PLATELET COUNT, AUTOMATED 284 10^3/uL (150-450); RED BLOOD COUNT 4.01 10^6/uL (4.30-6.10); WHITE BLOOD COUNT 10.2 10^3/uL (4.0-10.0)
[2023-03-26 06:47] LABS: ALBUMIN 2.8 G/DL (3.2-5.2); ALKALINE PHOSPHATASE 89 U/L (46-116); ALT/SGPT 26 U/L (7.0-40); AST/SGOT 22 U/L (<34); BILIRUBIN,TOTAL 0.3 MG/DL (0.3-1.2); BLOOD UREA NITROGEN 25 MG/DL (9-23); CALCIUM LEVEL 8.2 MG/DL (8.3-10.6); CARBON DIOXIDE LEVEL 29 MMOL/L (20-31); CHLORIDE LEVEL 105 MMOL/L (98-107); CREATININE FOR GFR 0.73 MG/DL (0.70-1.30); GLOMERULAR FILTRATION RATE > 60.0 (>49); GLUCOSE, FASTING 140 MG/DL (74-106); POTASSIUM SERUM 3.7 MMOL/L (3.5-5.1); SODIUM LEVEL 140 MMOL/L (136-145); TOTAL PROTEIN 5.2 G/DL (5.7-8.2)
[2023-03-26] MEDS: INSULIN LISPRO (NovoLOG) PER UNIT SC SCH ×4 (08:15→21:00)
[2023-03-26] MEDS: ATOVAQUONE SUSP 750MG/5ML 210 ML BTL PO SCH (08:16)
[2023-03-26] MEDS: ENOXAPARIN 40MG/0.4ML SYRINGE (J1650 PER 10MG) SC SCH (08:16)
[2023-03-26] MEDS: PYRIDOSTIGMINE 60MG TABLET PO SCH ×3 (08:16→21:06)
[2023-03-26] MEDS: MULTIVITAMINS/MINERALS THERAP 1 TAB PO SCH (08:16)
[2023-03-26] MEDS: predniSONE 5 MG TAB PO SCH (08:16)
[2023-03-26] MEDS: DOCUSATE SODIUM 100MG CAPSULE PO SCH ×2 (08:17→21:00)
[2023-03-26] MEDS: LIDOCAINE 5% (LIDODERM) PATCH TOP SCH (08:17)
[2023-03-26] MEDS: SANTYL OINT 30GM TOP SCH (08:17)
[2023-03-26] MEDS ORDERED: LEVEMIR (INSULIN DETEMIR) 1 UNITS/0.01ML SC SCH (09:00)
[2023-03-26] MEDS: FERROUS SULFATE 325MG TAB PO SCH (12:44)
[2023-03-26 14:00] VITALS: BP 117/70; TEMP 97.7; O2SAT 95
[2023-03-26] MEDS: IRBESARTAN 150MG TAB PO SCH (15:11)
[2023-03-26] MEDS: ATORVASTATIN 20 MG TAB PO SCH (17:17)
[2023-03-26 20:33] VITALS: BP 122/74; TEMP 98.6; O2SAT 96
[2023-03-26] MEDS: SENNA 8.6 MG TAB (SENOKOT) PO SCH (21:00)
[2023-03-27 05:25] VITALS: BP 122/74; TEMP 98.2; O2SAT 95
[2023-03-27] MEDS: CEFEPIME HCL 2 GM in D5W MINI-BAG PLUS 50 ML IV SCH ×3 (05:41→21:54)
[2023-03-27 06:10] LABS: HEMATOCRIT 35.3 % (42.0-52.0); MEAN CORPUSCULAR HEMOGLOBIN 26.9 pg (27.0-33.0); MEAN CORPUSCULAR HGB CONC 31.2 g/dl (32.0-36.5); MEAN CORPUSCULAR VOLUME 86.3 fl (80.0-96.0); PLATELET COUNT, AUTOMATED 304 10^3/uL (150-450); RED BLOOD COUNT 4.09 10^6/uL (4.30-6.10); WHITE BLOOD COUNT 9.9 10^3/uL (4.0-10.0)
[2023-03-27 06:20] LABS: ALBUMIN 2.8 G/DL (3.2-5.2); ALKALINE PHOSPHATASE 92 U/L (46-116); ALT/SGPT 32 U/L (7.0-40); AST/SGOT 14 U/L (<34); BILIRUBIN,TOTAL 0.4 MG/DL (0.3-1.2); BLOOD UREA NITROGEN 26 MG/DL (9-23); CALCIUM LEVEL 8.6 MG/DL (8.3-10.6); CARBON DIOXIDE LEVEL 28 MMOL/L (20-31); CHLORIDE LEVEL 104 MMOL/L (98-107); CREATININE FOR GFR 0.78 MG/DL (0.70-1.30); GLOMERULAR FILTRATION RATE > 60.0 (>49); GLUCOSE, FASTING 119 MG/DL (74-106); POTASSIUM SERUM 3.8 MMOL/L (3.5-5.1); SODIUM LEVEL 139 MMOL/L (136-145); TOTAL PROTEIN 5.4 G/DL (5.7-8.2)
[2023-03-27] MEDS ORDERED: LEVEMIR (INSULIN DETEMIR) 1 UNITS/0.01ML SC SCH (09:00)
[2023-03-27] MEDS: DOCUSATE SODIUM 100MG CAPSULE PO SCH ×2 (09:00→21:00)
[2023-03-27] MEDS: predniSONE 5 MG TAB PO SCH (09:55)
[2023-03-27] MEDS: INSULIN LISPRO (NovoLOG) PER UNIT SC SCH ×4 (09:55→22:17)
[2023-03-27] MEDS: MULTIVITAMINS/MINERALS THERAP 1 TAB PO SCH (09:55)
[2023-03-27] MEDS: ATOVAQUONE SUSP 750MG/5ML 210 ML BTL PO SCH (09:55)
[2023-03-27] MEDS: ENOXAPARIN 40MG/0.4ML SYRINGE (J1650 PER 10MG) SC SCH (09:56)
[2023-03-27] MEDS: SANTYL OINT 30GM TOP SCH (09:57)
[2023-03-27] MEDS: LIDOCAINE 5% (LIDODERM) PATCH TOP SCH (09:57)
[2023-03-27] MEDS: PYRIDOSTIGMINE 60MG TABLET PO SCH ×3 (10:37→21:17)
[2023-03-27] MEDS: FERROUS SULFATE 325MG TAB PO SCH (12:40)
[2023-03-27] MEDS ORDERED: GLIMEPIRIDE 1 MG TABLET PO SCH (13:40)
[2023-03-27 14:00] VITALS: BP 143/74; TEMP 97.5; O2SAT 91
[2023-03-27] MEDS: IRBESARTAN 150MG TAB PO SCH (15:52)
[2023-03-27] MEDS: ATORVASTATIN 20 MG TAB PO SCH (17:36)
[2023-03-27 19:31] VITALS: BP 119/72; TEMP 98.1; O2SAT 95
[2023-03-27] MEDS: SENNA 8.6 MG TAB (SENOKOT) PO SCH (21:00)
[2023-03-27] MEDS ORDERED: INSULIN LISPRO (NovoLOG) PER UNIT SC ONE (21:10)
[2023-03-28] MEDS: CEFEPIME HCL 2 GM in D5W MINI-BAG PLUS 50 ML IV SCH ×3 (05:29→21:38)
[2023-03-28 05:35] VITALS: BP 129/76; TEMP 98.1; O2SAT 96
[2023-03-28 07:31] LABS: HEMATOCRIT 35.2 % (42.0-52.0); MEAN CORPUSCULAR HEMOGLOBIN 27.1 pg (27.0-33.0); MEAN CORPUSCULAR HGB CONC 31.3 g/dl (32.0-36.5); MEAN CORPUSCULAR VOLUME 86.7 fl (80.0-96.0); PLATELET COUNT, AUTOMATED 290 10^3/uL (150-450); RED BLOOD COUNT 4.06 10^6/uL (4.30-6.10)
[2023-03-28 08:25] LABS: ALBUMIN 2.7 G/DL (3.2-5.2); ALKALINE PHOSPHATASE 87 U/L (46-116); ALT/SGPT 45 U/L (7.0-40); AST/SGOT 21 U/L (<34); BILIRUBIN,TOTAL 0.4 MG/DL (0.3-1.2); BLOOD UREA NITROGEN 33 MG/DL (9-23); CALCIUM LEVEL 8.8 MG/DL (8.3-10.6); CARBON DIOXIDE LEVEL 27 MMOL/L (20-31); CHLORIDE LEVEL 104 MMOL/L (98-107); CREATININE FOR GFR 0.73 MG/DL (0.70-1.30); GLOMERULAR FILTRATION RATE > 60.0 (>49); GLUCOSE, FASTING 102 MG/DL (74-106); POTASSIUM SERUM 3.8 MMOL/L (3.5-5.1); SODIUM LEVEL 138 MMOL/L (136-145); TOTAL PROTEIN 5.3 G/DL (5.7-8.2)
[2023-03-28] MEDS: DOCUSATE SODIUM 100MG CAPSULE PO SCH ×2 (09:00→21:00)
[2023-03-28] MEDS: ATOVAQUONE SUSP 750MG/5ML 210 ML BTL PO SCH (09:01)
[2023-03-28] MEDS: ENOXAPARIN 40MG/0.4ML SYRINGE (J1650 PER 10MG) SC SCH (09:01)
[2023-03-28] MEDS: LIDOCAINE 5% (LIDODERM) PATCH TOP SCH (09:01)
[2023-03-28] MEDS: MULTIVITAMINS/MINERALS THERAP 1 TAB PO SCH (09:02)
[2023-03-28] MEDS: GLIMEPIRIDE 1 MG TABLET PO SCH (09:02)
[2023-03-28] MEDS: PYRIDOSTIGMINE 60MG TABLET PO SCH ×3 (09:02→21:36)
[2023-03-28] MEDS: SANTYL OINT 30GM TOP SCH (09:03)
[2023-03-28] MEDS: predniSONE 5 MG TAB PO SCH (09:03)
[2023-03-28] MEDS: INSULIN LISPRO (NovoLOG) PER UNIT SC SCH ×4 (09:12→21:37)
[2023-03-28] MEDS: DAPAGLIFLOZIN PROPANEDIOL 10MG TABLET (FARXIGA) PO SCH (13:39)
[2023-03-28] MEDS: FERROUS SULFATE 325MG TAB PO SCH (13:39)
[2023-03-28 14:00] VITALS: BP 141/98; TEMP 97.5; O2SAT 95
[2023-03-28] MEDS: IRBESARTAN 150MG TAB PO SCH (15:42)
[2023-03-28 16:44] LABS: HEMOGLOBIN A1c 7.4 % (4.0-6.0)
[2023-03-28] MEDS: ATORVASTATIN 20 MG TAB PO SCH (17:55)
[2023-03-28] MEDS: metFORMIN (GLUCOPHAGE) 1000MG TABLET PO SCH (17:55)
[2023-03-28 19:39] VITALS: BP 133/71; TEMP 97.5; O2SAT 92
[2023-03-28] MEDS: SENNA 8.6 MG TAB (SENOKOT) PO SCH (21:00)
[2023-03-28] MEDS ORDERED: LEVEMIR (INSULIN DETEMIR) 1 UNITS/0.01ML SC SCH (21:00)
[2023-03-29 05:00] VITALS: BP 120/72; TEMP 98.8; O2SAT 96
[2023-03-29] MEDS: CEFEPIME HCL 2 GM in D5W MINI-BAG PLUS 50 ML IV SCH ×2 (05:30→14:30)
[2023-03-29 06:12] LABS: BASO # 0.1 10^3/uL (0.0-0.2); BASO % 0.6 % (0.0-1.0); EOS # 0.2 10^3/uL (0.0-0.5); EOS % 2.1 % (0.0-3.0); HEMATOCRIT 36.2 % (42.0-52.0); HEMOGLOBIN 11.2 g/dl (13.5-17.5); LYMPH # 1.8 10^3/uL (1.5-5.0); LYMPH % 17.8 % (24.0-44.0); MEAN CORPUSCULAR HGB CONC 30.9 g/dl (32.0-36.5); MEAN CORPUSCULAR VOLUME 87.2 fl (80.0-96.0); MONO # 1.4 10^3/uL (0.0-0.8); MONO % 14.1 % (2.0-8.0); NEUTROPHILS # 6.4 10^3/uL (1.5-8.5); NEUTROPHILS % 64.6 % (36.0-66.0); PLATELET COUNT, AUTOMATED 289 10^3/uL (150-450); RED BLOOD COUNT 4.15 10^6/uL (4.30-6.10); WHITE BLOOD COUNT 9.9 10^3/uL (4.0-10.0)
[2023-03-29 06:40] LABS: BLOOD UREA NITROGEN 36 MG/DL (9-23); CALCIUM LEVEL 8.4 MG/DL (8.3-10.6); CARBON DIOXIDE LEVEL 29 MMOL/L (20-31); CHLORIDE LEVEL 105 MMOL/L (98-107); CREATININE FOR GFR 0.85 MG/DL (0.70-1.30); GLOMERULAR FILTRATION RATE > 60.0 (>49); GLUCOSE, FASTING 105 MG/DL (74-106); POTASSIUM SERUM 4.1 MMOL/L (3.5-5.1); SODIUM LEVEL 141 MMOL/L (136-145)
[2023-03-29] MEDS: ATOVAQUONE SUSP 750MG/5ML 210 ML BTL PO SCH (08:03)
[2023-03-29] MEDS: predniSONE 5 MG TAB PO SCH (08:03)
[2023-03-29] MEDS: PYRIDOSTIGMINE 60MG TABLET PO SCH ×2 (08:04→16:08)
[2023-03-29] MEDS: MULTIVITAMINS/MINERALS THERAP 1 TAB PO SCH (08:04)
[2023-03-29] MEDS: metFORMIN (GLUCOPHAGE) 1000MG TABLET PO SCH (08:04)
[2023-03-29] MEDS: GLIMEPIRIDE 1 MG TABLET PO SCH (08:04)
[2023-03-29] MEDS: DAPAGLIFLOZIN PROPANEDIOL 10MG TABLET (FARXIGA) PO SCH (08:04)
[2023-03-29] MEDS: INSULIN LISPRO (NovoLOG) PER UNIT SC SCH ×2 (08:05→12:21)
[2023-03-29] MEDS: LIDOCAINE 5% (LIDODERM) PATCH TOP SCH (08:05)
[2023-03-29] MEDS: ENOXAPARIN 40MG/0.4ML SYRINGE (J1650 PER 10MG) SC SCH (08:05)
[2023-03-29] MEDS: SANTYL OINT 30GM TOP SCH (08:06)
[2023-03-29] MEDS: PERCOCET 5MG/325MG TAB PO PRN (08:08)
[2023-03-29] MEDS: DOCUSATE SODIUM 100MG CAPSULE PO SCH (08:09)
[2023-03-29] MEDS: FERROUS SULFATE 325MG TAB PO SCH (12:20)
[2023-03-29 14:00] VITALS: BP 137/92; TEMP 97.5
[2023-03-29] MEDS ORDERED: OXYC1TAB23 PO (14:01)
[2023-03-29 14:31] VITALS: BP 137/92; TEMP 97.5
[2023-03-29] MEDS: IRBESARTAN 150MG TAB PO SCH (14:31)
== END 2023-03-29 16:55 | disposition home or self-care (01) | DRG 574 ==
LOC: M SDC 11:06 → M MS5PR 15:20 → M SDC 16:25 → M MS5PR 16:25
PROVIDERS: ADMIT Internal Medicine; ATTEND Internal Medicine
PROC: 0HRLX74 Replacement of Left Lower Leg Skin with Autologous Tissue Substitute, Partial Thickness, External Approach (ICD-10-PCS; 2023-03-21)
PROC: 0HRKX74 Replacement of Right Lower Leg Skin with Autologous Tissue Substitute, Partial Thickness, External Approach (ICD-10-PCS; principal; 2023-03-21 12:20)
DX: L97.819 Non-pressure chronic ulcer of other part of right lower leg with unspecified severity (principal); J98.11 Atelectasis; L97.829 Non-pressure chronic ulcer of other part of left lower leg with unspecified severity; G70.00 Myasthenia gravis without (acute) exacerbation; E11.51 Type 2 diabetes mellitus with diabetic peripheral angiopathy without gangrene; I73.9 Peripheral vascular disease, unspecified; L94.2 Calcinosis cutis; I10 Essential (primary) hypertension; D50.9 Iron deficiency anemia, unspecified; E78.5 Hyperlipidemia, unspecified; Z98.41 Cataract extraction status, right eye; Z98.42 Cataract extraction status, left eye; Z96.643 Presence of artificial hip joint, bilateral; Z96.611 Presence of right artificial shoulder joint; Z96.612 Presence of left artificial shoulder joint; Z79.84 Long term (current) use of oral hypoglycemic drugs; Z79.899 Other long term (current) drug therapy; Z88.1 Allergy status to other antibiotic agents; Z88.2 Allergy status to sulfonamides; Z88.8 Allergy status to other drugs, medicaments and biological substances; Z20.822 Contact with and (suspected) exposure to COVID-19

== ENCOUNTER → 2023-05-17 | Outpatient (REF) | payer MEDICARE, BC, OTHER ==
[~2023-05-17] MED LIST changes: -AMIT25TA17 PO; +AMIT25TA19 PO; +DICL100G10 TOP; -DICL1GEL3 TOP; +FARX1TAB3 PO; +OXYC1TAB23 PO
== END ==
LOC: M LAB REF 16:12
PROVIDERS: ATTEND Podiatrist
DX: E11.621 Type 2 diabetes mellitus with foot ulcer (principal); L03.031 Cellulitis of right toe

== ENCOUNTER 2023-06-01 11:58 | Inpatient (IN) | payer MEDICARE, BC, OTHER ==
[~2023-06-01] VITALS: Ht 177.8 cm; Wt 83.9 kg
[2023-06-01 15:15] VITALS: BP 148/79; TEMP 97.7; O2SAT 97
[2023-06-01 15:46] LABS: BASO % 0.2 % (0.0-1.0); EOS % 0.1 % (0.0-3.0); HEMATOCRIT 37.7 % (42.0-52.0); HEMOGLOBIN 11.4 g/dl (13.5-17.5); LYMPH # 0.5 10^3/uL (1.5-5.0); LYMPH % 3.1 % (24.0-44.0); MEAN CORPUSCULAR HGB CONC 30.2 g/dl (32.0-36.5); MEAN CORPUSCULAR VOLUME 89.3 fl (80.0-96.0); MONO # 0.6 10^3/uL (0.0-0.8); MONO % 4.2 % (2.0-8.0); NEUTROPHILS # 14.1 10^3/uL (1.5-8.5); NEUTROPHILS % 91.4 % (36.0-66.0); PLATELET COUNT, AUTOMATED 358 10^3/uL (150-450); RED BLOOD COUNT 4.22 10^6/uL (4.30-6.10); WHITE BLOOD COUNT 15.4 10^3/uL (4.0-10.0)
[2023-06-01 15:58] LABS: ERYTHROCYTE SEDIMENTATION RATE 53 mm/hr (0-20)
[2023-06-01] MEDS: NS 1,000 ML IV ONE ×2 (16:15→18:15)
[2023-06-01] MEDS ORDERED: GLUCOSE 4GM CHEW TABLET PO PRN (16:15)
[2023-06-01] MEDS ORDERED: GLUCAGON INJ 1MG VIAL SC PRN (16:15)
[2023-06-01] MEDS ORDERED: DEXTROSE 50% 50ML SYRINGE IV PRN (16:15)
[2023-06-01 16:18] LABS: ALBUMIN 3.3 G/DL (3.2-5.2); ALKALINE PHOSPHATASE 74 U/L (46-116); ALT/SGPT 27 U/L (7.0-40); AST/SGOT 19 U/L (<34); BILIRUBIN,TOTAL 0.2 MG/DL (0.3-1.2); BLOOD UREA NITROGEN 27 MG/DL (9-23); CALCIUM LEVEL 9.1 MG/DL (8.3-10.6); CARBON DIOXIDE LEVEL 20 MMOL/L (20-31); CHLORIDE LEVEL 103 MMOL/L (98-107); CREATININE FOR GFR 0.91 MG/DL (0.70-1.30); GLOMERULAR FILTRATION RATE > 60.0 (>49); GLUCOSE, FASTING 289 MG/DL (74-106); MAGNESIUM LEVEL 1.9 MG/DL (1.8-2.4); SODIUM LEVEL 137 MMOL/L (136-145); TOTAL PROTEIN 6.2 G/DL (5.7-8.2)
[2023-06-01] MEDS ORDERED: NS 1,000 ML IV ONE ×3 (16:20→17:00)
[2023-06-01] MEDS ORDERED: cefTRIAXone SOD 2 GM in D5W MINI-BAG PLUS 50 ML IV SCH (16:30)
[2023-06-01] MEDS ORDERED: OSTETAB2 PO (16:35)
[2023-06-01] MEDS ORDERED: ZINC50TA4 PO (16:35)
[2023-06-01] MEDS ORDERED: METAMUCIL (PSYLLIUM) PACKET PO PRN (16:35)
[2023-06-01] MEDS ORDERED: HOME MED LIST COMPLETE! XX SCH (16:40)
[2023-06-01] MEDS ORDERED: ISOVUE-370 76% 100ML VIAL As Ordered ONE (16:50)
[2023-06-01] MEDS ORDERED: INSULIN LISPRO (NovoLOG) PER UNIT SC ONE (17:30)
[2023-06-01] MEDS ORDERED: INSULIN LISPRO (NovoLOG) PER UNIT SC SCH ×2 (17:30→21:00)
[2023-06-01 18:05] LABS: HEMOGLOBIN A1c 7.5 % (4.0-6.0)
[2023-06-01] MEDS: LACTOBACILLUS ACIDOPHILUS CAP (BACID) PO SCH ×2 (18:43→20:08)
[2023-06-01] MEDS: ATORVASTATIN 20 MG TAB PO SCH (18:44)
[2023-06-01] MEDS: metFORMIN (GLUCOPHAGE) 1000MG TABLET PO SCH (20:08)
[2023-06-01] MEDS: PERCOCET 5MG/325MG TAB PO PRN (20:09)
[2023-06-01] MEDS: PYRIDOSTIGMINE 60MG TABLET PO SCH (20:09)
[2023-06-01 20:34] VITALS: BP 157/97; TEMP 98.1
[2023-06-01] MEDS: cefTAZidime 2 GM in D5W MINI-BAG PLUS 50 ML IV SCH (20:42)
[2023-06-01] MEDS ORDERED: VANCOMYCIN HCL 1,000 MG, VIAL MATE ADAPTER 1 EACH in D5W 250 ML IV ONE ×2 (22:00→23:00)
[2023-06-01] MEDS: NS 1,000 ML IV SCH (22:15)
[2023-06-02] MEDS: cefTAZidime 2 GM in D5W MINI-BAG PLUS 50 ML IV SCH ×3 (03:19→17:44)
[2023-06-02] MEDS: PERCOCET 5MG/325MG TAB PO PRN ×3 (03:26→22:03)
[2023-06-02] MEDS ORDERED: VANCOMYCIN HCL 1,000 MG, VIAL MATE ADAPTER 1 EACH in D5W 250 ML IV SCH (04:00)
[2023-06-02 06:23] VITALS: BP 145/88; TEMP 98.2; O2SAT 96
[2023-06-02] MEDS ORDERED: INSULIN LISPRO (NovoLOG) PER UNIT SC SCH (07:30)
[2023-06-02 07:32] LABS: BASO % 0.3 % (0.0-1.0); EOS # 0.2 10^3/uL (0.0-0.5); EOS % 1.6 % (0.0-3.0); HEMATOCRIT 30.9 % (42.0-52.0); HEMOGLOBIN 9.5 g/dl (13.5-17.5); LYMPH # 1.6 10^3/uL (1.5-5.0); LYMPH % 15.5 % (24.0-44.0); MEAN CORPUSCULAR HEMOGLOBIN 27.5 pg (27.0-33.0); MEAN CORPUSCULAR HGB CONC 30.7 g/dl (32.0-36.5); MEAN CORPUSCULAR VOLUME 89.6 fl (80.0-96.0); MONO # 1.2 10^3/uL (0.0-0.8); MONO % 11.3 % (2.0-8.0); NEUTROPHILS # 7.3 10^3/uL (1.5-8.5); NEUTROPHILS % 70.2 % (36.0-66.0); PLATELET COUNT, AUTOMATED 279 10^3/uL (150-450); RED BLOOD COUNT 3.45 10^6/uL (4.30-6.10); WHITE BLOOD COUNT 10.4 10^3/uL (4.0-10.0)
[2023-06-02] MEDS: PYRIDOSTIGMINE 60MG TABLET PO SCH ×3 (08:20→20:10)
[2023-06-02] MEDS: predniSONE 5 MG TAB PO SCH (08:20)
[2023-06-02] MEDS: NS 1,000 ML IV SCH ×3 (08:20→22:04)
[2023-06-02 08:23] LABS: ALBUMIN 2.7 G/DL (3.2-5.2); ALKALINE PHOSPHATASE 54 U/L (46-116); ALT/SGPT 20 U/L (7.0-40); AST/SGOT 13 U/L (<34); BILIRUBIN,DIRECT 0.1 MG/DL (<0.4); BILIRUBIN,TOTAL 0.3 MG/DL (0.3-1.2); BLOOD UREA NITROGEN 17 MG/DL (9-23); CALCIUM LEVEL 7.5 MG/DL (8.3-10.6); CARBON DIOXIDE LEVEL 24 MMOL/L (20-31); CHLORIDE LEVEL 109 MMOL/L (98-107); CHOLESTEROL LEVEL 73 MG/DL (<200); CREATININE FOR GFR 0.83 MG/DL (0.70-1.30); FREE THYROXINE INDEX 3.5 % (1.4-3.8); GLOMERULAR FILTRATION RATE > 60.0 (>49); GLUCOSE, FASTING 68 MG/DL (74-106); POTASSIUM SERUM 4.1 MMOL/L (3.5-5.1); SODIUM LEVEL 139 MMOL/L (136-145); T UPTAKE 52.5 % (22.5-37.0); THYROXINE (T4) 6.6 UG/DL (4.5-10.9); TOTAL PROTEIN 5.1 G/DL (5.7-8.2); TRIGLYCERIDES LEVEL 131 MG/DL (<150)
[2023-06-02] MEDS ORDERED: KETOROLAC 30 MG/ML 1ML VIAL IV ONE (08:30)
[2023-06-02] MEDS: ATOVAQUONE SUSP 750MG/5ML 210 ML BTL PO SCH (09:00)
[2023-06-02] MEDS: metFORMIN (GLUCOPHAGE) 1000MG TABLET PO SCH ×2 (09:00→20:10)
[2023-06-02 09:07] LABS: HEMOGLOBIN A1c 7.4 % (4.0-6.0)
[2023-06-02] MEDS ORDERED: DAPAGLIFLOZIN PROPANEDIOL 10MG TABLET (FARXIGA) PO SCH (12:00)
[2023-06-02 12:14] LABS: CHOLESTEROL RISK RATIO 2.42 (<5); HDL CHOLESTEROL 30.1 MG/DL (>40); LDL CHOLESTEROL 16.7 MG/DL (<100); NON-HDL-C 42.9 MG/DL
[2023-06-02] MEDS: LACTOBACILLUS ACIDOPHILUS CAP (BACID) PO SCH ×4 (12:30→20:10)
[2023-06-02 12:39] LABS: INR 0.98; PROTHROMBIN TIME 12.7 SECONDS (12.5-14.5)
[2023-06-02 12:40] LABS: PARTIAL THROMBOPLASTIN TIME 28.1 SECONDS (24.8-34.2)
[2023-06-02] MEDS ORDERED: ROPIvacaine 0.5% 30ML VIAL As Ordered ONE (13:03)
[2023-06-02] MEDS ORDERED: LIDOCAINE 2% MDV 20ML VIAL As Ordered ONE (13:03)
[2023-06-02] MEDS ORDERED: MIDAZOLAM INJ 2MG/2ML VIAL As Ordered ONE (13:56)
[2023-06-02] MEDS ORDERED: fentaNYL 100 MCG/2 ML INJECTION As Ordered ONE (13:56)
[2023-06-02] MEDS ORDERED: ONDANSETRON 4MG 2ML VIAL As Ordered ONE (13:56)
[2023-06-02] MEDS ORDERED: ACETAMINOPHEN 1000MG 100ML IV BAG As Ordered ONE (13:56)
[2023-06-02] MEDS ORDERED: propofoL 200 MG/20 ML VIAL As Ordered ONE (13:56)
[2023-06-02] MEDS ORDERED: GENTAMICIN SULF 80MG/2ML VIAL As Ordered ONE (14:10)
[2023-06-02 16:00] VITALS: BP 126/71; TEMP 97.9; O2SAT 95
[2023-06-02] MEDS: ASCORBIC ACID 500 MG TAB PO SCH (16:29)
[2023-06-02] MEDS: FERROUS SULFATE 325MG TAB PO SCH (16:29)
[2023-06-02] MEDS: MULTIVITAMINS/MINERALS THERAP 1 TAB PO SCH (16:31)
[2023-06-02] MEDS: OMEGA-3 1000MG CAPSULE PO SCH (16:31)
[2023-06-02] MEDS: GLIMEPIRIDE 2 MG TAB PO SCH (16:40)
[2023-06-02] MEDS: IRBESARTAN 150MG TAB PO SCH (16:46)
[2023-06-02] MEDS: ATORVASTATIN 20 MG TAB PO SCH (17:44)
[2023-06-02 20:03] VITALS: BP 148/66; TEMP 98.1; O2SAT 92
[2023-06-03] MEDS: cefTAZidime 2 GM in D5W MINI-BAG PLUS 50 ML IV SCH ×3 (01:58→17:53)
[2023-06-03 06:58] LABS: BASO # 0.1 10^3/uL (0.0-0.2); BASO % 0.5 % (0.0-1.0); EOS # 0.2 10^3/uL (0.0-0.5); EOS % 1.9 % (0.0-3.0); HEMATOCRIT 31.4 % (42.0-52.0); HEMOGLOBIN 9.5 g/dl (13.5-17.5); LYMPH # 1.7 10^3/uL (1.5-5.0); LYMPH % 16.1 % (24.0-44.0); MEAN CORPUSCULAR HEMOGLOBIN 27.4 pg (27.0-33.0); MEAN CORPUSCULAR HGB CONC 30.3 g/dl (32.0-36.5); MEAN CORPUSCULAR VOLUME 90.5 fl (80.0-96.0); MONO # 1.1 10^3/uL (0.0-0.8); MONO % 10.8 % (2.0-8.0); NEUTROPHILS # 7.2 10^3/uL (1.5-8.5); NEUTROPHILS % 70.1 % (36.0-66.0); PLATELET COUNT, AUTOMATED 271 10^3/uL (150-450); RED BLOOD COUNT 3.47 10^6/uL (4.30-6.10); WHITE BLOOD COUNT 10.3 10^3/uL (4.0-10.0)
[2023-06-03 07:06] VITALS: BP 129/67; TEMP 98.1; O2SAT 97
[2023-06-03 07:25] LABS: BLOOD UREA NITROGEN 17 MG/DL (9-23); CALCIUM LEVEL 7.7 MG/DL (8.3-10.6); CARBON DIOXIDE LEVEL 23 MMOL/L (20-31); CHLORIDE LEVEL 108 MMOL/L (98-107); CREATININE FOR GFR 0.76 MG/DL (0.70-1.30); GLOMERULAR FILTRATION RATE > 60.0 (>49); GLUCOSE, FASTING 58 MG/DL (74-106); POTASSIUM SERUM 4.2 MMOL/L (3.5-5.1); SODIUM LEVEL 139 MMOL/L (136-145)
[2023-06-03] MEDS: predniSONE 5 MG TAB PO SCH (08:12)
[2023-06-03] MEDS: metFORMIN (GLUCOPHAGE) 1000MG TABLET PO SCH ×2 (08:13→19:57)
[2023-06-03] MEDS: OMEGA-3 1000MG CAPSULE PO SCH (08:13)
[2023-06-03] MEDS: GLIMEPIRIDE 2 MG TAB PO SCH ×3 (08:13→08:32)
[2023-06-03] MEDS: ATOVAQUONE SUSP 750MG/5ML 210 ML BTL PO SCH (08:13)
[2023-06-03] MEDS: ASCORBIC ACID 500 MG TAB PO SCH (08:13)
[2023-06-03] MEDS: LACTOBACILLUS ACIDOPHILUS CAP (BACID) PO SCH ×4 (08:13→19:57)
[2023-06-03] MEDS: MULTIVITAMINS/MINERALS THERAP 1 TAB PO SCH (08:13)
[2023-06-03] MEDS: PERCOCET 5MG/325MG TAB PO PRN ×3 (08:24→19:57)
[2023-06-03] MEDS: PYRIDOSTIGMINE 60MG TABLET PO SCH ×3 (08:24→19:57)
[2023-06-03] MEDS ORDERED: PERCOCET 5MG/325MG TAB PO ONE (09:15)
[2023-06-03] MEDS: FERROUS SULFATE 325MG TAB PO SCH (12:13)
[2023-06-03] MEDS: IRBESARTAN 150MG TAB PO SCH (12:13)
[2023-06-03 14:00] VITALS: BP 133/78; TEMP 97.3; O2SAT 92
[2023-06-03] MEDS: NS 1,000 ML IV SCH ×2 (15:06→19:58)
[2023-06-03] MEDS: ATORVASTATIN 20 MG TAB PO SCH (17:52)
[2023-06-03 19:50] VITALS: BP 152/85; TEMP 97.3; O2SAT 94
[2023-06-04] VITALS (9 sets, daily range): BP systolic 110–216; BP diastolic 58–100; TEMP 97.6–98.7; O2SAT 92–97
[2023-06-04] MEDS: cefTAZidime 2 GM in D5W MINI-BAG PLUS 50 ML IV SCH ×3 (01:57→18:47)
[2023-06-04] MEDS: NS 1,000 ML IV SCH (01:58)
[2023-06-04] MEDS ORDERED: FUROSEMIDE 40MG/4ML VIAL IV ONE (05:00)
[2023-06-04] MEDS ORDERED: hydrALAZINE 20MG/ML 1ML VIAL IV STA (05:01)
[2023-06-04 05:46] LABS: BASO # 0.1 10^3/uL (0.0-0.2); BASO % 0.4 % (0.0-1.0); EOS # 0.2 10^3/uL (0.0-0.5); EOS % 1.4 % (0.0-3.0); HEMATOCRIT 37.1 % (42.0-52.0); LYMPH # 2.1 10^3/uL (1.5-5.0); MEAN CORPUSCULAR HEMOGLOBIN 27.6 pg (27.0-33.0); MEAN CORPUSCULAR VOLUME 89.2 fl (80.0-96.0); MONO # 1.3 10^3/uL (0.0-0.8); MONO % 7.2 % (2.0-8.0); NEUTROPHILS # 13.7 10^3/uL (1.5-8.5); NEUTROPHILS % 78.2 % (36.0-66.0); PLATELET COUNT, AUTOMATED 348 10^3/uL (150-450); RED BLOOD COUNT 4.16 10^6/uL (4.30-6.10); WHITE BLOOD COUNT 17.5 10^3/uL (4.0-10.0)
[2023-06-04 05:51] LABS: HEMOGLOBIN 11.5 g/dl (13.5-17.5)
[2023-06-04] MEDS: hydrALAZINE 20MG/ML 1ML VIAL IV SCH ×3 (06:00→18:00)
[2023-06-04 06:13] LABS: CK-MB VALUE MASS 3.8 NG/ML (<3.6)
[2023-06-04 06:15] LABS: BLOOD UREA NITROGEN 14 MG/DL (9-23); CALCIUM LEVEL 8.6 MG/DL (8.3-10.6); CARBON DIOXIDE LEVEL 24 MMOL/L (20-31); CHLORIDE LEVEL 106 MMOL/L (98-107); CREATININE FOR GFR 0.84 MG/DL (0.70-1.30); GLOMERULAR FILTRATION RATE > 60.0 (>49); GLUCOSE, FASTING 84 MG/DL (74-106); MAGNESIUM LEVEL 1.7 MG/DL (1.8-2.4); POTASSIUM SERUM 4.2 MMOL/L (3.5-5.1); SODIUM LEVEL 140 MMOL/L (136-145)
[2023-06-04 06:19] LABS: CPK CREATINE PHOSPHOKINASE 109 U/L (46-171); MB/CK RELATIVE INDEX 3.48 (< OR =4)
[2023-06-04] MEDS ORDERED: ISOVUE-370 76% 100ML VIAL As Ordered ONE (08:03)
[2023-06-04] MEDS ORDERED: ENOXAPARIN 30MG/0.3ML SYRINGE (J1650 PER 10MG) SC SCH (09:00)
[2023-06-04] MEDS: predniSONE 5 MG TAB PO SCH (09:36)
[2023-06-04] MEDS: FUROSEMIDE 40MG/4ML VIAL IV SCH ×3 (09:36→18:00)
[2023-06-04] MEDS: LACTOBACILLUS ACIDOPHILUS CAP (BACID) PO SCH ×4 (09:37→20:44)
[2023-06-04] MEDS: ENOXAPARIN 40MG/0.4ML SYRINGE (J1650 PER 10MG) SC SCH (09:37)
[2023-06-04] MEDS: GLIMEPIRIDE 2 MG TAB PO SCH (09:37)
[2023-06-04] MEDS: MULTIVITAMINS/MINERALS THERAP 1 TAB PO SCH (09:37)
[2023-06-04] MEDS: PYRIDOSTIGMINE 60MG TABLET PO SCH ×3 (09:37→20:44)
[2023-06-04] MEDS: ASCORBIC ACID 500 MG TAB PO SCH (09:37)
[2023-06-04] MEDS: OMEGA-3 1000MG CAPSULE PO SCH (09:37)
[2023-06-04] MEDS: ATOVAQUONE SUSP 750MG/5ML 210 ML BTL PO SCH (09:38)
[2023-06-04] MEDS: PERCOCET 5MG/325MG TAB PO PRN ×3 (09:59→18:54)
[2023-06-04] MEDS: FERROUS SULFATE 325MG TAB PO SCH (12:57)
[2023-06-04] MEDS ORDERED: INSULIN LISPRO (NovoLOG) PER UNIT SC STA (17:07)
[2023-06-04 17:52] LABS: IONIZED CALCIUM 4.4 MG/DL (4.5-5.3)
[2023-06-04 18:20] LABS: BLOOD UREA NITROGEN 18 MG/DL (9-23); CALCIUM LEVEL 7.9 MG/DL (8.3-10.6); CARBON DIOXIDE LEVEL 28 MMOL/L (20-31); CHLORIDE LEVEL 99 MMOL/L (98-107); CREATININE FOR GFR 1.07 MG/DL (0.70-1.30); GLOMERULAR FILTRATION RATE > 60.0 (>49); GLUCOSE, FASTING 357 MG/DL (74-106); MAGNESIUM LEVEL 1.5 MG/DL (1.8-2.4); POTASSIUM SERUM 4.2 MMOL/L (3.5-5.1); SODIUM LEVEL 135 MMOL/L (136-145)
[2023-06-04 18:32] LABS: PROCALCITONIN 0.27 ng/ml
[2023-06-04] MEDS: ATORVASTATIN 20 MG TAB PO SCH (18:47)
[2023-06-04] MEDS ORDERED: TRULICITY 1.5 MG SQ SCH (21:00)
[2023-06-04] MEDS ORDERED: INSULIN LISPRO (NovoLOG) PER UNIT SC ONE (22:00)
[2023-06-04] MEDS: MAG SULF 1GM/100ML (MAG RUN) 1 GM in IV 1 EA IV SCH ×2 (22:21→23:30)
[2023-06-05] VITALS: BP 117/64; TEMP 97.7; O2SAT 94
[2023-06-05] MEDS: cefTAZidime 2 GM in D5W MINI-BAG PLUS 50 ML IV SCH (03:01)
[2023-06-05 04:00] VITALS: BP 130/74; TEMP 97.6; O2SAT 96
[2023-06-05 05:51] LABS: IONIZED CALCIUM 4.3 MG/DL (4.5-5.3)
[2023-06-05 05:59] LABS: BASO % 0.5 % (0.0-1.0); EOS # 0.2 10^3/uL (0.0-0.5); EOS % 2.4 % (0.0-3.0); HEMATOCRIT 30.1 % (42.0-52.0); LYMPH # 1.3 10^3/uL (1.5-5.0); LYMPH % 14.8 % (24.0-44.0); MEAN CORPUSCULAR HEMOGLOBIN 27.8 pg (27.0-33.0); MEAN CORPUSCULAR HGB CONC 31.6 g/dl (32.0-36.5); MONO # 1.1 10^3/uL (0.0-0.8); MONO % 12.9 % (2.0-8.0); NEUTROPHILS # 5.8 10^3/uL (1.5-8.5); NEUTROPHILS % 68.8 % (36.0-66.0); PLATELET COUNT, AUTOMATED 280 10^3/uL (150-450); RED BLOOD COUNT 3.42 10^6/uL (4.30-6.10); WHITE BLOOD COUNT 8.4 10^3/uL (4.0-10.0)
[2023-06-05 06:03] LABS: HEMOGLOBIN 9.5 g/dl (13.5-17.5)
[2023-06-05 06:10] LABS: ERYTHROCYTE SEDIMENTATION RATE 42 mm/hr (0-20)
[2023-06-05 06:28] LABS: BLOOD UREA NITROGEN 15 MG/DL (9-23); CALCIUM LEVEL 8.1 MG/DL (8.3-10.6); CARBON DIOXIDE LEVEL 31 MMOL/L (20-31); CHLORIDE LEVEL 102 MMOL/L (98-107); CREATININE FOR GFR 0.87 MG/DL (0.70-1.30); GLOMERULAR FILTRATION RATE > 60.0 (>49); GLUCOSE, FASTING 70 MG/DL (74-106); MAGNESIUM LEVEL 1.7 MG/DL (1.8-2.4); POTASSIUM SERUM 3.7 MMOL/L (3.5-5.1); SODIUM LEVEL 139 MMOL/L (136-145)
[2023-06-05 06:52] LABS: PROCALCITONIN 0.21 ng/ml
[2023-06-05 08:00] VITALS: BP 172/79; TEMP 97.5; O2SAT 98
[2023-06-05] MEDS ORDERED: POTASSIUM CHLORIDE 10MEQ SR TABLET PO ONE ×2 (08:00→13:35)
[2023-06-05] MEDS ORDERED: MAG SULF 1GM/100ML (MAG RUN) 1 GM in IV 1 EA IV ONE (08:00)
[2023-06-05] MEDS: metFORMIN (GLUCOPHAGE) 1000MG TABLET PO SCH ×2 (08:00→17:16)
[2023-06-05] MEDS: ASCORBIC ACID 500 MG TAB PO SCH (08:23)
[2023-06-05] MEDS: PYRIDOSTIGMINE 60MG TABLET PO SCH ×3 (08:23→20:45)
[2023-06-05] MEDS: predniSONE 5 MG TAB PO SCH (08:23)
[2023-06-05] MEDS: OMEGA-3 1000MG CAPSULE PO SCH (08:23)
[2023-06-05] MEDS: LACTOBACILLUS ACIDOPHILUS CAP (BACID) PO SCH ×4 (08:23→20:45)
[2023-06-05] MEDS: GLIMEPIRIDE 2 MG TAB PO SCH (08:23)
[2023-06-05] MEDS: MULTIVITAMINS/MINERALS THERAP 1 TAB PO SCH (08:23)
[2023-06-05] MEDS: ENOXAPARIN 40MG/0.4ML SYRINGE (J1650 PER 10MG) SC SCH (08:24)
[2023-06-05] MEDS: ATOVAQUONE SUSP 750MG/5ML 210 ML BTL PO SCH ×2 (08:24→13:51)
[2023-06-05] MEDS: PERCOCET 5MG/325MG TAB PO PRN ×2 (08:37→15:14)
[2023-06-05] MEDS ORDERED: CALCIUM GLUCONATE 1,000 MG in D5W MINI-BAG PLUS 100 ML IV ONE ×3 (09:00)
[2023-06-05] MEDS ORDERED: CALCIUM GLUCONATE 1,000 MG, VIAL MATE ADAPTER 1 EACH in NS 100 ML IV ONE ×2 (10:00→16:00)
[2023-06-05] MEDS ORDERED: CEFTAZIDIME IV SCH (10:05)
[2023-06-05] MEDS ORDERED: NS MINI IV SCH (10:05)
[2023-06-05] MEDS: CEFTAZIDIME IV SCH ×2 (11:28→18:28)
[2023-06-05] MEDS: NS MINI IV SCH ×2 (11:28→18:28)
[2023-06-05 12:00] VITALS: BP 144/74; TEMP 97.4; O2SAT 93
[2023-06-05] MEDS: FERROUS SULFATE 325MG TAB PO SCH (12:13)
[2023-06-05] MEDS ORDERED: LEVEMIR (INSULIN DETEMIR) 1 UNITS/0.01ML SC ONE ×2 (13:10→17:25)
[2023-06-05] MEDS ORDERED: IPRATROPIUM 0.5MG/ALBUTEROL 2.5MG INH SOL UD 3ML (DUONEB) NEB PRN (13:15)
[2023-06-05 13:29] LABS: IONIZED CALCIUM 4.5 MG/DL (4.5-5.3)
[2023-06-05] MEDS ORDERED: IPRATROPIUM 0.5MG/ALBUTEROL 2.5MG INH SOL UD 3ML (DUONEB) NEB ONE (13:30)
[2023-06-05] MEDS ORDERED: metOLazone 5 MG TAB PO ONE (13:35)
[2023-06-05] MEDS ORDERED: FUROSEMIDE 40MG/4ML VIAL IV ONE (13:35)
[2023-06-05] MEDS ORDERED: INSULIN LISPRO (NovoLOG) PER UNIT SC ONE ×2 (13:35→17:25)
[2023-06-05 14:11] LABS: CK-MB VALUE MASS 2.5 NG/ML (<3.6)
[2023-06-05 14:14] LABS: MB/CK RELATIVE INDEX 3.57 (< OR =4)
[2023-06-05 14:18] LABS: MAGNESIUM LEVEL 2.2 MG/DL (1.8-2.4); POTASSIUM SERUM 4.6 MMOL/L (3.5-5.1)
[2023-06-05 14:26] LABS: ABG BASE EXCESS -1.5 (-2.0-2.0); ABG HCO3 22.2 MMOL/L (22.0-26.0); ABG O2 SATURATION 95.4 % (95.0-99.0); ABG PARTIAL PRESSURE CO2 33.7 mmHg (35.0-45.0); ABG PARTIAL PRESSURE O2 77.7 mmHg (75.0-100.0); ABG STANDARD HCO3 23.2 MMOL/L. (22.0-26.0); ABG TOTAL CO2 23.2 MMOL/L (23.0-31.0); ABG pH (ARTERIAL) 7.436 UNITS (7.350-7.450)
[2023-06-05] MEDS: DAPAGLIFLOZIN PROPANEDIOL 10MG TABLET (FARXIGA) PO SCH (14:32)
[2023-06-05 14:50] VITALS: BP 139/74; TEMP 97.2; O2SAT 93
[2023-06-05] MEDS ORDERED: MAGNESIUM SULFATE 8 MEQ in NS 100 ML IV ONE (15:00)
[2023-06-05] MEDS ORDERED: LIDOCAINE 1% MDV 20ML VIAL As Ordered ONE (15:14)
[2023-06-05] MEDS: IPRATROPIUM 0.5MG/ALBUTEROL 2.5MG INH SOL UD 3ML (DUONEB) NEB SCH ×2 (15:37→19:24)
[2023-06-05] MEDS: ATORVASTATIN 20 MG TAB PO SCH (17:16)
[2023-06-05] MEDS: FUROSEMIDE 40MG/4ML VIAL IV SCH (17:16)
[2023-06-05] MEDS ORDERED: SODIUM CHLORIDE 0.9% INJ 10 ML SYR IV PRN (18:00)
[2023-06-05] MEDS: SODIUM CHLORIDE 0.9% INJ 10 ML SYR IV SCH (18:29)
[2023-06-05 18:47] LABS: IONIZED CALCIUM 4.4 MG/DL (4.5-5.3)
[2023-06-05 19:26] LABS: CK-MB VALUE MASS 2.9 NG/ML (<3.6)
[2023-06-05 19:28] LABS: BLOOD UREA NITROGEN 17 MG/DL (9-23); CALCIUM LEVEL 9.9 MG/DL (8.3-10.6); CARBON DIOXIDE LEVEL 30 MMOL/L (20-31); CHLORIDE LEVEL 98 MMOL/L (98-107); CPK CREATINE PHOSPHOKINASE 80 U/L (46-171); CREATININE FOR GFR 0.84 MG/DL (0.70-1.30); GLOMERULAR FILTRATION RATE > 60.0 (>49); GLUCOSE, FASTING 212 MG/DL (74-106); MAGNESIUM LEVEL 2.2 MG/DL (1.8-2.4); MB/CK RELATIVE INDEX 3.62 (< OR =4); POTASSIUM SERUM 4.2 MMOL/L (3.5-5.1); SODIUM LEVEL 137 MMOL/L (136-145)
[2023-06-05] MEDS: MAGNESIUM OXIDE 400MG TAB (MAG-OX) PO SCH (20:40)
[2023-06-05] MEDS: POTASSIUM CHLORIDE 10MEQ SR TABLET PO SCH (20:40)
[2023-06-05 20:50] VITALS: BP 123/71; TEMP 97.5; O2SAT 94
[2023-06-06] VITALS (10 sets, daily range): BP systolic 106–150; BP diastolic 56–78; TEMP 97.5–97.9; O2SAT 79–98
[2023-06-06 00:45] LABS: IONIZED CALCIUM 4.6 MG/DL (4.5-5.3)
[2023-06-06 01:13] LABS: CK-MB VALUE MASS 2.3 NG/ML (<3.6)
[2023-06-06 01:14] LABS: BLOOD UREA NITROGEN 20 MG/DL (9-23); CALCIUM LEVEL 9.4 MG/DL (8.3-10.6); CARBON DIOXIDE LEVEL 33 MMOL/L (20-31); CHLORIDE LEVEL 98 MMOL/L (98-107); CPK CREATINE PHOSPHOKINASE 75 U/L (46-171); CREATININE FOR GFR 0.96 MG/DL (0.70-1.30); GLOMERULAR FILTRATION RATE > 60.0 (>49); GLUCOSE, FASTING 90 MG/DL (74-106); MAGNESIUM LEVEL 1.9 MG/DL (1.8-2.4); MB/CK RELATIVE INDEX 3.06 (< OR =4); POTASSIUM SERUM 3.8 MMOL/L (3.5-5.1); SODIUM LEVEL 140 MMOL/L (136-145)
[2023-06-06] MEDS: FUROSEMIDE 40MG/4ML VIAL IV SCH ×5 (01:17→23:55)
[2023-06-06] MEDS: CEFTAZIDIME IV SCH ×3 (01:18→18:28)
[2023-06-06] MEDS: NS MINI IV SCH ×3 (01:18→18:28)
[2023-06-06] MEDS: SODIUM CHLORIDE 0.9% INJ 10 ML SYR IV SCH ×2 (05:51→18:29)
[2023-06-06 05:57] LABS: BASO # 0.1 10^3/uL (0.0-0.2); BASO % 0.5 % (0.0-1.0); EOS # 0.2 10^3/uL (0.0-0.5); EOS % 1.9 % (0.0-3.0); HEMATOCRIT 36.7 % (42.0-52.0); LYMPH # 1.5 10^3/uL (1.5-5.0); LYMPH % 14.6 % (24.0-44.0); MEAN CORPUSCULAR HEMOGLOBIN 27.5 pg (27.0-33.0); MEAN CORPUSCULAR HGB CONC 31.9 g/dl (32.0-36.5); MEAN CORPUSCULAR VOLUME 86.4 fl (80.0-96.0); MONO # 1.3 10^3/uL (0.0-0.8); MONO % 11.9 % (2.0-8.0); NEUTROPHILS # 7.4 10^3/uL (1.5-8.5); NEUTROPHILS % 70.2 % (36.0-66.0); PLATELET COUNT, AUTOMATED 384 10^3/uL (150-450); RED BLOOD COUNT 4.25 10^6/uL (4.30-6.10); WHITE BLOOD COUNT 10.5 10^3/uL (4.0-10.0)
[2023-06-06 05:58] LABS: HEMOGLOBIN 11.7 g/dl (13.5-17.5)
[2023-06-06 06:28] LABS: BLOOD UREA NITROGEN 19 MG/DL (9-23); CALCIUM LEVEL 9.5 MG/DL (8.3-10.6); CARBON DIOXIDE LEVEL 34 MMOL/L (20-31); CHLORIDE LEVEL 93 MMOL/L (98-107); CREATININE FOR GFR 0.93 MG/DL (0.70-1.30); GLOMERULAR FILTRATION RATE > 60.0 (>49); GLUCOSE, FASTING 79 MG/DL (74-106); POTASSIUM SERUM 3.8 MMOL/L (3.5-5.1); SODIUM LEVEL 138 MMOL/L (136-145)
[2023-06-06] MEDS: IPRATROPIUM 0.5MG/ALBUTEROL 2.5MG INH SOL UD 3ML (DUONEB) NEB SCH ×4 (07:43→21:06)
[2023-06-06] MEDS: LACTOBACILLUS ACIDOPHILUS CAP (BACID) PO SCH ×4 (08:00→21:29)
[2023-06-06] MEDS ORDERED: FUROSEMIDE 20MG/2ML VIAL IV ONE (08:25)
[2023-06-06] MEDS: ENOXAPARIN 40MG/0.4ML SYRINGE (J1650 PER 10MG) SC SCH (10:13)
[2023-06-06] MEDS: MULTIVITAMINS/MINERALS THERAP 1 TAB PO SCH (10:14)
[2023-06-06] MEDS: ATOVAQUONE SUSP 750MG/5ML 210 ML BTL PO SCH (10:14)
[2023-06-06] MEDS: FERROUS SULFATE 325MG TAB PO SCH (10:14)
[2023-06-06] MEDS: predniSONE 5 MG TAB PO SCH (10:15)
[2023-06-06] MEDS: POTASSIUM CHLORIDE 10MEQ SR TABLET PO SCH ×2 (10:15→21:29)
[2023-06-06] MEDS: OMEGA-3 1000MG CAPSULE PO SCH (10:15)
[2023-06-06] MEDS: GLIMEPIRIDE 2 MG TAB PO SCH (10:16)
[2023-06-06] MEDS: MAGNESIUM OXIDE 400MG TAB (MAG-OX) PO SCH ×2 (10:16→21:29)
[2023-06-06] MEDS: metFORMIN (GLUCOPHAGE) 1000MG TABLET PO SCH ×2 (10:28→18:43)
[2023-06-06] MEDS: ASCORBIC ACID 500 MG TAB PO SCH (10:28)
[2023-06-06] MEDS: PYRIDOSTIGMINE 60MG TABLET PO SCH ×3 (10:29→21:29)
[2023-06-06] MEDS ORDERED: FURO40TA2 PO (11:24)
[2023-06-06] MEDS ORDERED: POTA-136 PO (11:24)
[2023-06-06] MEDS ORDERED: MAGN400T2 PO (11:24)
[2023-06-06] MEDS: DAPAGLIFLOZIN PROPANEDIOL 10MG TABLET (FARXIGA) PO SCH (11:55)
[2023-06-06] MEDS: ATORVASTATIN 20 MG TAB PO SCH (18:29)
[2023-06-07] VITALS (7 sets, daily range): BP systolic 112–134; BP diastolic 63–79; TEMP 97.2–97.5; O2SAT 83–94
[2023-06-07] MEDS: CEFTAZIDIME IV SCH ×3 (01:00→16:59)
[2023-06-07] MEDS: NS MINI IV SCH ×3 (01:00→16:59)
[2023-06-07] MEDS: FUROSEMIDE 40MG/4ML VIAL IV SCH ×3 (05:09→17:00)
[2023-06-07] MEDS: SODIUM CHLORIDE 0.9% INJ 10 ML SYR IV SCH ×2 (05:10→17:00)
[2023-06-07 07:10] LABS: BASO % 0.4 % (0.0-1.0); EOS # 0.2 10^3/uL (0.0-0.5); EOS % 1.5 % (0.0-3.0); HEMATOCRIT 37.9 % (42.0-52.0); HEMOGLOBIN 11.8 g/dl (13.5-17.5); LYMPH # 1.8 10^3/uL (1.5-5.0); LYMPH % 17.3 % (24.0-44.0); MEAN CORPUSCULAR HEMOGLOBIN 26.9 pg (27.0-33.0); MEAN CORPUSCULAR HGB CONC 31.1 g/dl (32.0-36.5); MEAN CORPUSCULAR VOLUME 86.5 fl (80.0-96.0); MONO # 1.4 10^3/uL (0.0-0.8); MONO % 13.9 % (2.0-8.0); NEUTROPHILS # 6.7 10^3/uL (1.5-8.5); NEUTROPHILS % 66.2 % (36.0-66.0); PLATELET COUNT, AUTOMATED 393 10^3/uL (150-450); RED BLOOD COUNT 4.38 10^6/uL (4.30-6.10); WHITE BLOOD COUNT 10.2 10^3/uL (4.0-10.0)
[2023-06-07 07:32] LABS: BLOOD UREA NITROGEN 28 MG/DL (9-23); CARBON DIOXIDE LEVEL 38 MMOL/L (20-31); CHLORIDE LEVEL 91 MMOL/L (98-107); CREATININE FOR GFR 1.13 MG/DL (0.70-1.30); GLOMERULAR FILTRATION RATE > 60.0 (>49); GLUCOSE, FASTING 82 MG/DL (74-106); POTASSIUM SERUM 3.7 MMOL/L (3.5-5.1); SODIUM LEVEL 138 MMOL/L (136-145)
[2023-06-07] MEDS: IPRATROPIUM 0.5MG/ALBUTEROL 2.5MG INH SOL UD 3ML (DUONEB) NEB SCH (07:50)
[2023-06-07] MEDS: predniSONE 5 MG TAB PO SCH (08:29)
[2023-06-07] MEDS: LACTOBACILLUS ACIDOPHILUS CAP (BACID) PO SCH ×3 (08:29→17:00)
[2023-06-07] MEDS: POTASSIUM CHLORIDE 10MEQ SR TABLET PO SCH (08:29)
[2023-06-07] MEDS: ENOXAPARIN 40MG/0.4ML SYRINGE (J1650 PER 10MG) SC SCH (08:29)
[2023-06-07] MEDS: PYRIDOSTIGMINE 60MG TABLET PO SCH ×2 (08:30→15:28)
[2023-06-07] MEDS: GLIMEPIRIDE 2 MG TAB PO SCH (08:30)
[2023-06-07] MEDS: MAGNESIUM OXIDE 400MG TAB (MAG-OX) PO SCH (08:30)
[2023-06-07] MEDS: ASCORBIC ACID 500 MG TAB PO SCH (08:30)
[2023-06-07] MEDS: MULTIVITAMINS/MINERALS THERAP 1 TAB PO SCH (08:30)
[2023-06-07] MEDS: ATOVAQUONE SUSP 750MG/5ML 210 ML BTL PO SCH (08:30)
[2023-06-07] MEDS: OMEGA-3 1000MG CAPSULE PO SCH (08:30)
[2023-06-07] MEDS: metFORMIN (GLUCOPHAGE) 1000MG TABLET PO SCH ×2 (08:30→17:00)
[2023-06-07] MEDS: FERROUS SULFATE 325MG TAB PO SCH (12:11)
[2023-06-07] MEDS: DAPAGLIFLOZIN PROPANEDIOL 10MG TABLET (FARXIGA) PO SCH (12:11)
[2023-06-07] MEDS: ATORVASTATIN 20 MG TAB PO SCH (17:00)
== END 2023-06-07 18:27 | disposition home health service (06) | DRG 616 ==
LOC: M ED INP 14:58 → UNDOADMIN 14:58 → M MS5PR 15:03 → M PCU 06-04 05:39 → M MSPAV 06-05 14:44
PROVIDERS: ADMIT Internal Medicine; ATTEND Family Medicine
PROC: 0Y6T0Z1 Detachment at Right 3rd Toe, High, Open Approach (ICD-10-PCS; principal; 2023-06-02 13:00)
PROC: 05HB33Z Insertion of Infusion Device into Right Basilic Vein, Percutaneous Approach (ICD-10-PCS; 2023-06-05)
PROC: B246ZZZ Ultrasonography of Right and Left Heart (ICD-10-PCS; 2023-06-06)
DX: E11.621 Type 2 diabetes mellitus with foot ulcer (principal); J96.01 Acute respiratory failure with hypoxia; L03.115 Cellulitis of right lower limb; E87.20 Acidosis, unspecified; L97.518 Non-pressure chronic ulcer of other part of right foot with other specified severity; L02.611 Cutaneous abscess of right foot; M00.871 Arthritis due to other bacteria, right ankle and foot; G70.00 Myasthenia gravis without (acute) exacerbation; E11.51 Type 2 diabetes mellitus with diabetic peripheral angiopathy without gangrene; E87.70 Fluid overload, unspecified; I70.235 Atherosclerosis of native arteries of right leg with ulceration of other part of foot; L94.2 Calcinosis cutis; I16.0 Hypertensive urgency; D50.9 Iron deficiency anemia, unspecified; E11.65 Type 2 diabetes mellitus with hyperglycemia; I10 Essential (primary) hypertension; E78.5 Hyperlipidemia, unspecified; B96.5 Pseudomonas (aeruginosa) (mallei) (pseudomallei) as the cause of diseases classified elsewhere; Z96.643 Presence of artificial hip joint, bilateral; Z96.611 Presence of right artificial shoulder joint; Z96.612 Presence of left artificial shoulder joint; Z98.1 Arthrodesis status; Z79.52 Long term (current) use of systemic steroids; Z79.85 Long-term (current) use of injectable non-insulin antidiabetic drugs; Z79.84 Long term (current) use of oral hypoglycemic drugs; Z79.899 Other long term (current) drug therapy; Z88.2 Allergy status to sulfonamides; Z88.1 Allergy status to other antibiotic agents; Z88.8 Allergy status to other drugs, medicaments and biological substances

== ENCOUNTER → 2023-07-11 | Outpatient (REF) | payer MEDICARE, BC, OTHER ==
[~2023-07-11] MED LIST changes: +FURO40TA2 PO; +MAGN400T2 PO; +OSTETAB2 PO; +POTA-136 PO; +ZINC50TA4 PO
== END ==
LOC: M LAB REF 16:24
PROVIDERS: ATTEND Podiatrist
DX: L03.031 Cellulitis of right toe (principal)

== ENCOUNTER → 2023-10-02 | Outpatient (REF) | payer MEDICARE, OTHER | LOC: M LAB REF 12:19 | PROVIDERS: ATTEND Podiatrist Foot & Ankle Surgery | DX: L03.031 Cellulitis of right toe (principal) ==

== ENCOUNTER → 2023-10-10 | Outpatient (CLI) | payer MEDICARE, BC, OTHER | LOC: M CARPUL 08:30 | PROVIDERS: ATTEND Internal Medicine Pulmonary Disease | DX: R94.2 Abnormal results of pulmonary function studies (principal) ==

== ENCOUNTER 2023-11-02 11:04 | Inpatient (IN) | payer MEDICARE, BC, OTHER ==
[~2023-11-02] VITALS: Ht 177.8 cm; Wt 90.9 kg
[~2023-11-02 11:04] MED LIST changes: +DOXY100T PO; +IRBE150T27 PO; -IRBE150T7 PO; +MULT-90 PO
[2023-11-02] MEDS: LR 1,000 ML IV SCH (11:35)
[2023-11-02 12:30] LABS: HEMATOCRIT 36.9 % (42.0-52.0); HEMOGLOBIN 11.2 g/dl (13.5-17.5); MEAN CORPUSCULAR HEMOGLOBIN 26.8 pg (27.0-33.0); MEAN CORPUSCULAR HGB CONC 30.4 g/dl (32.0-36.5); MEAN CORPUSCULAR VOLUME 88.3 fl (80.0-96.0); PLATELET COUNT, AUTOMATED 335 10^3/uL (150-450); RED BLOOD COUNT 4.18 10^6/uL (4.30-6.10); WHITE BLOOD COUNT 15.3 10^3/uL (4.0-10.0)
[2023-11-02] MEDS ORDERED: propofoL 200 MG/20 ML VIAL As Ordered ONE (12:47)
[2023-11-02] MEDS ORDERED: propofoL 500 MG/50 ML VIAL As Ordered ONE (12:47)
[2023-11-02] MEDS ORDERED: fentaNYL 100 MCG/2 ML INJECTION As Ordered ONE (12:47)
[2023-11-02] MEDS ORDERED: LIDOCAINE 2% 100MG/5ML SDV (FOR ANES.) As Ordered ONE (12:47)
[2023-11-02] MEDS ORDERED: ONDANSETRON 4MG 2ML VIAL As Ordered ONE (12:48)
[2023-11-02 12:56] LABS: BLOOD UREA NITROGEN 23 MG/DL (9-23); CALCIUM LEVEL 8.7 MG/DL (8.3-10.6); CARBON DIOXIDE LEVEL 28 MMOL/L (20-31); CHLORIDE LEVEL 103 MMOL/L (98-107); CREATININE FOR GFR 0.86 MG/DL (0.70-1.30); GLOMERULAR FILTRATION RATE > 60.0 (>49); GLUCOSE, FASTING 159 MG/DL (74-106); POTASSIUM SERUM 4.6 MMOL/L (3.5-5.1); SODIUM LEVEL 139 MMOL/L (136-145)
[2023-11-02] MEDS ORDERED: CEFEPIME HCL 1 GM in D5W MINI-BAG PLUS 50 ML IV ONE (13:25)
[2023-11-02] MEDS ORDERED: MIDAZOLAM INJ 2MG/2ML VIAL As Ordered ONE (13:37)
[2023-11-02] MEDS: CEFEPIME HCL 1 GM in D5W MINI-BAG PLUS 50 ML IV ONE (13:45)
[2023-11-02] MEDS: CEFEPIME 1GM VIAL (MAXIPIME) As Ordered ONE (13:49)
[2023-11-02] MEDS: LIDOCAINE 1% MDV 20ML VIAL As Ordered ONE (13:59)
[2023-11-02] MEDS ORDERED: MORPHINE 2 MG/ML 1ML VIAL IV PRN (15:05)
[2023-11-02] MEDS ORDERED: ACETAMINOPHEN TAB 650MG DOSE (2X325MG) PO PRN (15:25)
[2023-11-02] MEDS ORDERED: MOM 30ML SUSPENSION UDC PO PRN (15:25)
[2023-11-02] MEDS ORDERED: GLUCOSE 4GM CHEW TABLET PO PRN (15:25)
[2023-11-02] MEDS ORDERED: GLUCAGON INJ 1MG VIAL SC PRN (15:25)
[2023-11-02] MEDS ORDERED: DEXTROSE 50% 50ML SYRINGE IV PRN (15:25)
[2023-11-02 16:00] VITALS: BP 118/84; TEMP 97.2; O2SAT 92
[2023-11-02 16:49] VITALS: BP 124/59; TEMP 97.9; O2SAT 92
[2023-11-02] MEDS: INSULIN LISPRO (NovoLOG) PER UNIT SC SCH ×2 (17:34→21:08)
[2023-11-02] MEDS: ATORVASTATIN 20 MG TAB PO SCH (17:35)
[2023-11-02 18:08] VITALS: BP 111/70; TEMP 98.1; O2SAT 94
[2023-11-02] MEDS: NORCO, ANEXSIA 5/325MG TABLET (HYDROcodone/ACETAMINOPHEN) PO PRN (19:30)
[2023-11-02 19:47] VITALS: BP 123/65; TEMP 98.2; O2SAT 92
[2023-11-02] MEDS: PYRIDOSTIGMINE 60MG TABLET PO SCH (20:55)
[2023-11-02] MEDS: DOCUSATE SODIUM 100MG CAPSULE PO SCH (20:56)
[2023-11-03 01:25] VITALS: BP 108/54; TEMP 97.9; O2SAT 90
[2023-11-03] MEDS: CEFEPIME HCL 1 GM in D5W MINI-BAG PLUS 50 ML IV SCH (02:34)
[2023-11-03 06:08] LABS: HEMATOCRIT 29.9 % (42.0-52.0); MEAN CORPUSCULAR HEMOGLOBIN 26.5 pg (27.0-33.0); MEAN CORPUSCULAR HGB CONC 30.4 g/dl (32.0-36.5); MEAN CORPUSCULAR VOLUME 87.2 fl (80.0-96.0); PLATELET COUNT, AUTOMATED 272 10^3/uL (150-450); RED BLOOD COUNT 3.43 10^6/uL (4.30-6.10); WHITE BLOOD COUNT 10.6 10^3/uL (4.0-10.0)
[2023-11-03 06:19] LABS: HEMOGLOBIN 9.1 g/dl (13.5-17.5)
[2023-11-03] MEDS ORDERED: MULT-40 PO (06:28)
[2023-11-03] MEDS ORDERED: HOME MED LIST COMPLETE! XX SCH (06:30)
[2023-11-03 06:37] LABS: BLOOD UREA NITROGEN 20 MG/DL (9-23); CALCIUM LEVEL 7.8 MG/DL (8.3-10.6); CARBON DIOXIDE LEVEL 30 MMOL/L (20-31); CHLORIDE LEVEL 104 MMOL/L (98-107); CREATININE FOR GFR 0.82 MG/DL (0.70-1.30); GLOMERULAR FILTRATION RATE > 60.0 (>49); GLUCOSE, FASTING 92 MG/DL (74-106); SODIUM LEVEL 137 MMOL/L (136-145)
[2023-11-03 06:56] VITALS: BP 118/66; TEMP 97.7; O2SAT 91
[2023-11-03] MEDS: NORCO, ANEXSIA 5/325MG TABLET (HYDROcodone/ACETAMINOPHEN) PO PRN (07:12)
[2023-11-03] MEDS ORDERED: MORPHINE 2 MG/ML 1ML VIAL IV PRN (07:55)
[2023-11-03 08:07] LABS: IRON (FE) 20 UG/DL (65-175); PERCENT SATURATION 6.9 % (19.7-50.0); TOTAL IRON BINDING CAPACITY 289 UG/DL (250-425)
[2023-11-03 08:09] LABS: FERRITIN 28.8 NG/ML (10.5-307.3)
[2023-11-03 08:10] LABS: FOLATE 18.2 NG/ML (>5.4); VITAMIN B12 LEVEL 424 PG/ML (211-911)
[2023-11-03] MEDS: OMEGA-3 1000MG CAPSULE PO SCH (09:22)
[2023-11-03] MEDS: ASCORBIC ACID 500 MG TAB PO SCH (09:22)
[2023-11-03] MEDS: predniSONE 5 MG TAB PO SCH (09:22)
[2023-11-03] MEDS: LIDOCAINE 5% (LIDODERM) PATCH TOP SCH (09:22)
[2023-11-03] MEDS: ACETAMINOPHEN 500 MG TAB PO SCH ×2 (09:23→16:00)
[2023-11-03 10:14] VITALS: BP 119/65; TEMP 97.3; O2SAT 94
[2023-11-03] MEDS: ATOVAQUONE SUSP 750MG/5ML 210 ML BTL PO SCH (10:36)
[2023-11-03] MEDS: FERROUS SULFATE 325MG TAB PO SCH (11:38)
[2023-11-03] MEDS: DAPAGLIFLOZIN PROPANEDIOL 10MG TABLET (FARXIGA) PO SCH (11:38)
[2023-11-03] MEDS: FERRIC CARBOXYMALTOSE INJ 750 MG, VIAL MATE ADAPTER 1 EACH in NS 250 ML IV ONE (12:24)
[2023-11-03 14:32] VITALS: BP 115/65; TEMP 97.2; O2SAT 95
[2023-11-03 20:42] VITALS: BP 142/73; TEMP 97.7; O2SAT 96
[2023-11-03] MEDS: IRBESARTAN 150MG TAB PO SCH (20:54)
[2023-11-04 06:15] LABS: HEMATOCRIT 29.6 % (42.0-52.0); HEMOGLOBIN 9.2 g/dl (13.5-17.5); MEAN CORPUSCULAR HGB CONC 31.1 g/dl (32.0-36.5); MEAN CORPUSCULAR VOLUME 86.8 fl (80.0-96.0); PLATELET COUNT, AUTOMATED 271 10^3/uL (150-450); RED BLOOD COUNT 3.41 10^6/uL (4.30-6.10); WHITE BLOOD COUNT 10.3 10^3/uL (4.0-10.0)
[2023-11-04 07:09] VITALS: BP 112/63; TEMP 96.6; O2SAT 94
[2023-11-04] MEDS: MIRALAX *UNIT DOSE* 17GM PACKET PO SCH (09:00)
[2023-11-04] MEDS: METAMUCIL (PSYLLIUM) PACKET PO SCH (10:11)
[2023-11-04 14:10] VITALS: BP 117/62; TEMP 97.5; O2SAT 95
[2023-11-04 19:44] VITALS: BP 142/79; TEMP 97.7; O2SAT 95
[2023-11-05 05:49] VITALS: BP 119/57; TEMP 98.1; O2SAT 95
[2023-11-05 06:35] LABS: HEMATOCRIT 30.2 % (42.0-52.0); HEMOGLOBIN 9.5 g/dl (13.5-17.5); MEAN CORPUSCULAR HEMOGLOBIN 27.1 pg (27.0-33.0); MEAN CORPUSCULAR HGB CONC 31.5 g/dl (32.0-36.5); MEAN CORPUSCULAR VOLUME 86.3 fl (80.0-96.0); PLATELET COUNT, AUTOMATED 288 10^3/uL (150-450); WHITE BLOOD COUNT 9.1 10^3/uL (4.0-10.0)
[2023-11-05 22:00] VITALS: BP 126/70; TEMP 97.7
[2023-11-06 05:48] LABS: HEMATOCRIT 32.1 % (42.0-52.0); HEMOGLOBIN 9.8 g/dl (13.5-17.5); MEAN CORPUSCULAR HEMOGLOBIN 26.6 pg (27.0-33.0); MEAN CORPUSCULAR HGB CONC 30.5 g/dl (32.0-36.5); MEAN CORPUSCULAR VOLUME 87.2 fl (80.0-96.0); PLATELET COUNT, AUTOMATED 296 10^3/uL (150-450); RED BLOOD COUNT 3.68 10^6/uL (4.30-6.10); WHITE BLOOD COUNT 9.4 10^3/uL (4.0-10.0)
[2023-11-06 06:00] VITALS: BP 133/72; TEMP 98.1; O2SAT 94
[2023-11-06 14:07] VITALS: BP 135/71; TEMP 97.5; O2SAT 95
[2023-11-06 22:00] VITALS: BP 137/70
[2023-11-07 06:00] VITALS: BP 136/75; TEMP 97.9
[2023-11-07 06:06] LABS: HEMATOCRIT 34.1 % (42.0-52.0); HEMOGLOBIN 10.3 g/dl (13.5-17.5); MEAN CORPUSCULAR HEMOGLOBIN 26.5 pg (27.0-33.0); MEAN CORPUSCULAR HGB CONC 30.2 g/dl (32.0-36.5); MEAN CORPUSCULAR VOLUME 87.9 fl (80.0-96.0); PLATELET COUNT, AUTOMATED 311 10^3/uL (150-450); RED BLOOD COUNT 3.88 10^6/uL (4.30-6.10); WHITE BLOOD COUNT 9.4 10^3/uL (4.0-10.0)
[2023-11-07 07:30] VITALS: BP 122/80; TEMP 97.7; O2SAT 98
[2023-11-07 08:00] VITALS: BP 122/80; TEMP 97.7; O2SAT 98
[2023-11-07 10:21] LABS: BLOOD UREA NITROGEN 15 MG/DL (9-23); CARBON DIOXIDE LEVEL 28 MMOL/L (20-31); CHLORIDE LEVEL 104 MMOL/L (98-107); CREATININE FOR GFR 0.78 MG/DL (0.70-1.30); GLOMERULAR FILTRATION RATE > 60.0 (>49); GLUCOSE, FASTING 97 MG/DL (74-106); MAGNESIUM LEVEL 2.2 MG/DL (1.8-2.4); POTASSIUM SERUM 3.9 MMOL/L (3.5-5.1); SODIUM LEVEL 138 MMOL/L (136-145)
[2023-11-07 14:00] VITALS: BP 130/74; TEMP 97.7; O2SAT 95
[2023-11-07] MEDS: ENOXAPARIN 40MG/0.4ML SYRINGE (J1650 PER 10MG) SC SCH (15:34)
[2023-11-07] MEDS: LACTOBACILLUS ACIDOPHILUS CAP (BACID) PO SCH (17:08)
[2023-11-07 20:21] VITALS: BP 133/67
[2023-11-07] MEDS: POLYSPORIN TOPICAL OINTMENT 15GM TOP SCH (20:24)
[2023-11-07 22:00] VITALS: BP 133/67; TEMP 98.2
[2023-11-08 05:44] LABS: HEMOGLOBIN 10.7 g/dl (13.5-17.5); MEAN CORPUSCULAR HGB CONC 30.6 g/dl (32.0-36.5); MEAN CORPUSCULAR VOLUME 88.2 fl (80.0-96.0); PLATELET COUNT, AUTOMATED 312 10^3/uL (150-450); RED BLOOD COUNT 3.97 10^6/uL (4.30-6.10); WHITE BLOOD COUNT 9.5 10^3/uL (4.0-10.0)
[2023-11-08 06:00] VITALS: BP 133/81; TEMP 97.5
[2023-11-08] MEDS ORDERED: HYDR-3715 PO (12:58)
[2023-11-08] MEDS ORDERED: CEPH500T PO (12:58)
== END 2023-11-08 15:30 | disposition home health service (06) | DRG 617 ==
LOC: M SDC 11:04 → EDSTATUS 13:05 → M SDC 15:22 → M MS5PR 15:23
PROVIDERS: ADMIT Student in an Organized Health Care Education/Training Program; ATTEND Student in an Organized Health Care Education/Training Program
PROC: 0Y6M0ZC Detachment at Right Foot, Partial 3rd Ray, Open Approach (ICD-10-PCS; 2023-11-02)
PROC: 0Y6M0ZD Detachment at Right Foot, Partial 4th Ray, Open Approach (ICD-10-PCS; 2023-11-02)
PROC: 0Y6M0ZF Detachment at Right Foot, Partial 5th Ray, Open Approach (ICD-10-PCS; 2023-11-02)
PROC: 0YP90YZ Removal of Other Device from Right Lower Extremity, Open Approach (ICD-10-PCS; 2023-11-02)
PROC: 0Y6M0Z9 Detachment at Right Foot, Partial 1st Ray, Open Approach (ICD-10-PCS; principal; 2023-11-02 13:05)
PROC: 0Y6M0ZB Detachment at Right Foot, Partial 2nd Ray, Open Approach (ICD-10-PCS; 2023-11-02 13:05)
DX: E11.69 Type 2 diabetes mellitus with other specified complication (principal); M86.671 Other chronic osteomyelitis, right ankle and foot; L03.115 Cellulitis of right lower limb; D84.821 Immunodeficiency due to drugs; G70.00 Myasthenia gravis without (acute) exacerbation; E11.51 Type 2 diabetes mellitus with diabetic peripheral angiopathy without gangrene; L94.2 Calcinosis cutis; I10 Essential (primary) hypertension; K59.03 Drug induced constipation; E11.621 Type 2 diabetes mellitus with foot ulcer; B96.5 Pseudomonas (aeruginosa) (mallei) (pseudomallei) as the cause of diseases classified elsewhere; L97.519 Non-pressure chronic ulcer of other part of right foot with unspecified severity; D50.9 Iron deficiency anemia, unspecified; E78.5 Hyperlipidemia, unspecified; R00.1 Bradycardia, unspecified; G47.33 Obstructive sleep apnea (adult) (pediatric); T36.95XA Adverse effect of unspecified systemic antibiotic, initial encounter; T38.0X5A Adverse effect of glucocorticoids and synthetic analogues, initial encounter; Z96.643 Presence of artificial hip joint, bilateral; Z98.41 Cataract extraction status, right eye; Z98.42 Cataract extraction status, left eye; Z88.2 Allergy status to sulfonamides; Z88.8 Allergy status to other drugs, medicaments and biological substances; Z79.84 Long term (current) use of oral hypoglycemic drugs; Z79.52 Long term (current) use of systemic steroids; Z79.899 Other long term (current) drug therapy; Z88.1 Allergy status to other antibiotic agents

== ENCOUNTER → 2024-01-26 | Outpatient (CLI) | payer MEDICARE, BC ==
[~2024-01-26] MED LIST changes: +CEPH500T PO; -GLIM1TAB4 PO; +GLIM1TAB84 PO; +HYDR-3715 PO; +MULT-40 PO
== END ==
LOC: M SLEEP 20:00
PROVIDERS: ATTEND Nurse Practitioner Family
DX: G47.33 Obstructive sleep apnea (adult) (pediatric) (principal)

== ENCOUNTER 2024-05-23 10:20 | Day surgery (SDC) | payer MEDICARE, BC ==
[~2024-05-23] VITALS: Ht 177.8 cm; Wt 63.5 kg
[~2024-05-23 10:20] MED LIST changes: +GLUC1TAB58 PO
[2024-05-23 12:07] VITALS: TEMP 96.8
[2024-05-23] MEDS: NS 1,000 ML IV ONE (12:15)
[2024-05-23] MEDS ORDERED: propofoL 500 MG/50 ML VIAL As Ordered ONE (13:59)
[2024-05-23] MEDS ORDERED: fentaNYL 100 MCG/2 ML INJECTION As Ordered ONE (14:00)
[2024-05-23] MEDS ORDERED: GLYCOPYRROLATE INJ 0.2 MG/ML 2 ML VIAL As Ordered ONE (14:38)
[2024-05-23] MEDS ORDERED: LIDOCAINE 2% 100MG/5ML SDV (FOR ANES.) As Ordered ONE (14:38)
[2024-05-23] MEDS ORDERED: ePHEDrine SULFATE 25 MG/5 ML(5MG/ML) SYRINGE As Ordered ONE (14:43)
[2024-05-23 15:23] VITALS: BP 129/76; O2SAT 95
== END 2024-05-23 15:29 | disposition home or self-care (01) ==
LOC: M OPP 10:20
PROVIDERS: ATTEND Internal Medicine Gastroenterology
DX: D50.9 Iron deficiency anemia, unspecified (principal); D12.4 Benign neoplasm of descending colon; K64.8 Other hemorrhoids; K57.30 Diverticulosis of large intestine without perforation or abscess without bleeding; Z79.02 Long term (current) use of antithrombotics/antiplatelets; Z79.1 Long term (current) use of non-steroidal anti-inflammatories (NSAID); Z79.84 Long term (current) use of oral hypoglycemic drugs; Z79.85 Long-term (current) use of injectable non-insulin antidiabetic drugs; Z79.52 Long term (current) use of systemic steroids; Z88.1 Allergy status to other antibiotic agents; Z88.2 Allergy status to sulfonamides; E11.9 Type 2 diabetes mellitus without complications; G47.30 Sleep apnea, unspecified; Z99.89 Dependence on other enabling machines and devices
CPT/HCPCS: 43235; 45385; 88305; J1596; J3010

== ENCOUNTER 2025-06-08 14:23 | Inpatient (IN) | payer MEDICARE, BC ==
[~2025-06-08] VITALS: Ht 177.8 cm; Wt 94.5 kg
[~2025-06-08 14:23] MED LIST changes: -PRAV40TA2 PO; +PRAV40TA85 PO; -PRED50TA PO; +PRED50TA57 PO; -SUCR1ORA2 PO; +SUCR1ORA20 PO; +ZINC50TA37 PO; -ZINC50TA4 PO
[2025-06-08 17:51] LABS: BASO # 0.0 10^3/uL (0.0-0.2); BASO % 0.1 % (0.0-1.0); EOS # 0.0 10^3/uL (0.0-0.5); EOS % 0.0 % (0.0-3.0); LYMPH # 0.4 10^3/uL (1.5-5.0); LYMPH % 2.7 % (24.0-44.0); MONO # 0.7 10^3/uL (0.0-0.8); MONO % 4.6 % (2.0-8.0); NEUTROPHILS # 12.9 10^3/uL (1.5-8.5); NEUTROPHILS % 91.7 % (36.0-66.0); PLATELET COUNT, AUTOMATED 299 10^3/uL (150-450)
[2025-06-08] MEDS: KETOROLAC 30 MG/ML 1 ML VIAL IV ONE (18:04)
[2025-06-08 18:24] LABS: C REACTIVE PROTEIN QUANTITATIV 0.61 MG/DL (<1.0); CALCIUM LEVEL 8.0 MG/DL (8.3-10.6); CARBON DIOXIDE LEVEL 24.0 MMOL/L (20-31); CHLORIDE LEVEL 106.0 MMOL/L (98-107); CREATININE FOR GFR 0.96 MG/DL (0.70-1.30); GLOMERULAR FILTRATION RATE 88.8 (>49); POTASSIUM SERUM 5.1 MMOL/L (3.5-5.1); SODIUM LEVEL 143.0 MMOL/L (136-145)
[2025-06-08] MEDS: NS (Normal Saline) 0.9% 1,000 ML IV ONE (18:40)
[2025-06-08] MEDS: VANCOMYCIN HCL 2,000 MG, VIAL MATE ADAPTER 1 EACH in NS 500 ML IV ONE (21:07)
[2025-06-08] MEDS ORDERED: NAPR220C14 PO (21:56)
[2025-06-08] MEDS ORDERED: DULA3PEN SQ (21:56)
[2025-06-08] MEDS ORDERED: FISH120016 PO (21:56)
[2025-06-08] MEDS ORDERED: ONE-TAB PO (21:56)
[2025-06-08] MEDS ORDERED: HOME MED LIST COMPLETE! XX SCH (22:00)
[2025-06-08] MEDS ORDERED: GLUCOSE 4 GM CHEW PO PRN (22:10)
[2025-06-08] MEDS ORDERED: DEXTROSE 50% 50 ML SYRINGE IV PRN (22:10)
[2025-06-08] MEDS ORDERED: VANCOMYCIN HCL 1,000 MG, VIAL MATE ADAPTER 1 EACH in NS 250 ML IV SCH (22:10)
[2025-06-08] MEDS ORDERED: GLUCAGON INJ 1 MG VIAL SC PRN (22:10)
[2025-06-08] MEDS: INSULIN LISPRO (NovoLOG) PER UNIT SC SCH (22:36)
[2025-06-08 23:26] LABS: ESTIMATED AVERAGE GLUCOSE 146.0 MG/DL (60-110)
[2025-06-08 23:30] VITALS: BP 147/64; TEMP 97.6; O2SAT 97
[2025-06-09] MEDS: PYRIDOSTIGMINE 60MG TABLET PO STA (00:13)
[2025-06-09] MEDS: AZTREONAM 2 GM in DEXTROSE 5% (D5W) MINI-BAG PLU 100 ML IV SCH (00:14)
[2025-06-09] MEDS: VANCOMYCIN HCL 1,250 MG, VIAL MATE ADAPTER 1 EACH in NS 250 ML IV SCH (05:31)
[2025-06-09 06:00] VITALS: BP 100/50; TEMP 98.5; O2SAT 98
[2025-06-09 07:23] LABS: BASO # 0.0 10^3/uL (0.0-0.2); BASO % 0.2 % (0.0-1.0); EOS # 0.1 10^3/uL (0.0-0.5); EOS % 1.4 % (0.0-3.0); LYMPH # 1.2 10^3/uL (1.5-5.0); LYMPH % 14.1 % (24.0-44.0); MONO # 1.2 10^3/uL (0.0-0.8); MONO % 14.1 % (2.0-8.0); NEUTROPHILS # 6.1 10^3/uL (1.5-8.5); NEUTROPHILS % 69.5 % (36.0-66.0); PLATELET COUNT, AUTOMATED 269 10^3/uL (150-450)
[2025-06-09] MEDS: INSULIN LISPRO (NovoLOG) PER UNIT SC SCH (07:30)
[2025-06-09 07:40] LABS: C REACTIVE PROTEIN QUANTITATIV < 0.50 MG/DL (<1.0); CALCIUM LEVEL 7.4 MG/DL (8.3-10.6); CARBON DIOXIDE LEVEL 27 MMOL/L (20-31); CHLORIDE LEVEL 112 MMOL/L (98-107); CREATININE FOR GFR 0.95 MG/DL (0.70-1.30); GLOMERULAR FILTRATION RATE 89.9 (>49); POTASSIUM SERUM 4.4 MMOL/L (3.5-5.1); SODIUM LEVEL 142 MMOL/L (136-145)
[2025-06-09] MEDS: PYRIDOSTIGMINE 60MG TABLET PO SCH (09:46)
[2025-06-09] MEDS: ATOVAQUONE SUSP 750 MG/5 ML PO SCH (09:47)
[2025-06-09] MEDS: FERROUS SULFATE 325 MG TAB PO SCH (12:30)
[2025-06-09] MEDS: ASCORBIC ACID 500 MG TAB PO SCH (12:30)
[2025-06-09 14:00] VITALS: BP 139/63; TEMP 98.4; O2SAT 95
[2025-06-09 15:34] LABS: IRON (FE) 204 UG/DL (65-175); PERCENT SATURATION 56.7 % (19.7-50.0)
[2025-06-09 15:37] LABS: VITAMIN B12 LEVEL 779 PG/ML (211-911)
[2025-06-09] MEDS: DAPAGLIFLOZIN PROPANEDIOL 10 MG TABLET PO SCH (17:49)
[2025-06-09] MEDS: ATORVASTATIN 20 MG TAB PO SCH (17:49)
[2025-06-09] MEDS: IRBESARTAN 150 MG TAB PO SCH (17:51)
[2025-06-09] MEDS: GLIMEPIRIDE 1 MG TABLET PO SCH (20:55)
[2025-06-09 22:00] VITALS: BP 107/72; TEMP 98.3; O2SAT 98
[2025-06-10 06:00] VITALS: BP 140/71; TEMP 97.4; O2SAT 92
[2025-06-10 06:00] LABS: VANCOMYCIN LEVEL TROUGH 21.3 UG/ML (10.0-20.0)
[2025-06-10 07:34] LABS: CALCIUM LEVEL 8.0 MG/DL (8.3-10.6); CARBON DIOXIDE LEVEL 26 MMOL/L (20-31); CHLORIDE LEVEL 108 MMOL/L (98-107); CREATININE FOR GFR 0.89 MG/DL (0.70-1.30); GLOMERULAR FILTRATION RATE > 90.0 (>49); POTASSIUM SERUM 4.3 MMOL/L (3.5-5.1); SODIUM LEVEL 138 MMOL/L (136-145)
[2025-06-10 07:39] LABS: BASO # 0.0 10^3/uL (0.0-0.2); BASO % 0.3 % (0.0-1.0); EOS # 0.1 10^3/uL (0.0-0.5); EOS % 1.4 % (0.0-3.0); LYMPH # 1.4 10^3/uL (1.5-5.0); LYMPH % 13.2 % (24.0-44.0); MONO # 1.4 10^3/uL (0.0-0.8); MONO % 13.6 % (2.0-8.0); NEUTROPHILS # 7.3 10^3/uL (1.5-8.5); NEUTROPHILS % 71.0 % (36.0-66.0); PLATELET COUNT, AUTOMATED 276 10^3/uL (150-450)
[2025-06-10] MEDS: FUROSEMIDE 40 MG/4 ML VIAL IV SCH (10:17)
[2025-06-10] MEDS: VANCOMYCIN HCL 1,000 MG, VIAL MATE ADAPTER 1 EACH in NS 250 ML IV SCH (10:18)
[2025-06-10 13:35] LABS: SOURCE, BODY FLUID RT ELBOW
[2025-06-10 13:54] LABS: CRYSTALS, BODY FLUID NONE SEEN (NONE SEEN); SOURCE, BODY FLUID CRYSTALS RT ELBOW
[2025-06-10 14:00] VITALS: BP 136/71; TEMP 98.3; O2SAT 94
[2025-06-10 17:55] VITALS: BP_DIAS 74
[2025-06-10 21:45] VITALS: BP 114/62; TEMP 98.7; O2SAT 97
[2025-06-11 06:26] VITALS: BP 100/63; TEMP 98.4; O2SAT 96
[2025-06-11 08:02] LABS: VANCOMYCIN LEVEL TROUGH 21.2 UG/ML (10.0-20.0)
[2025-06-11 08:03] LABS: CALCIUM LEVEL 8.0 MG/DL (8.3-10.6); CARBON DIOXIDE LEVEL 30.0 MMOL/L (20-31); CHLORIDE LEVEL 104.0 MMOL/L (98-107); CREATININE FOR GFR 0.96 MG/DL (0.70-1.30); GLOMERULAR FILTRATION RATE 88.8 (>49); POTASSIUM SERUM 3.6 MMOL/L (3.5-5.1); SODIUM LEVEL 139.0 MMOL/L (136-145)
[2025-06-11 08:38] LABS: BASO # 0.0 10^3/uL (0.0-0.2); BASO % 0.4 % (0.0-1.0); EOS # 0.2 10^3/uL (0.0-0.5); EOS % 2.0 % (0.0-3.0); LYMPH # 1.4 10^3/uL (1.5-5.0); LYMPH % 15.0 % (24.0-44.0); MONO # 1.4 10^3/uL (0.0-0.8); MONO % 15.1 % (2.0-8.0); NEUTROPHILS # 6.1 10^3/uL (1.5-8.5); NEUTROPHILS % 67.1 % (36.0-66.0); PLATELET COUNT, AUTOMATED 313 10^3/uL (150-450)
[2025-06-11] MEDS: FUROSEMIDE 40 MG/4 ML VIAL IV ONE (09:51)
[2025-06-11] MEDS ORDERED: VANCOMYCIN HCL 750 MG, VIAL MATE ADAPTER 1 EACH in NS 250 ML IV SCH (12:00)
[2025-06-11] MEDS: ACETAMINOPHEN 500 MG TAB PO ONE (12:57)
[2025-06-11] MEDS: KETOROLAC 30 MG/ML 1 ML VIAL IV ONE (12:57)
[2025-06-11] MEDS: CEPHALEXIN 500 MG CAP PO SCH (13:01)
[2025-06-11] MEDS ORDERED: LASI20TA3 PO (16:49)
[2025-06-11] MEDS ORDERED: CEPH500C PO (16:49)
[2025-06-11 17:20] VITALS: BP_SYST 100
== END 2025-06-11 19:03 | disposition home or self-care (01) | DRG 603 ==
LOC: M ED 14:23 → EEVIPCON 22:10 → M ED INP 22:10 → M MS5PR 23:19
PROVIDERS: ADMIT Student in an Organized Health Care Education/Training Program; ATTEND Internal Medicine Nephrology
PROC: 0M933ZZ Drainage of Right Elbow Bursa and Ligament, Percutaneous Approach (ICD-10-PCS; principal; 2025-06-10)
DX: L03.113 Cellulitis of right upper limb (principal); G70.00 Myasthenia gravis without (acute) exacerbation; E11.51 Type 2 diabetes mellitus with diabetic peripheral angiopathy without gangrene; I10 Essential (primary) hypertension; E78.5 Hyperlipidemia, unspecified; D50.9 Iron deficiency anemia, unspecified; M70.21 Olecranon bursitis, right elbow; E87.70 Fluid overload, unspecified; L94.2 Calcinosis cutis; Z79.52 Long term (current) use of systemic steroids; Z79.899 Other long term (current) drug therapy; Z79.84 Long term (current) use of oral hypoglycemic drugs; Z88.2 Allergy status to sulfonamides; Z88.0 Allergy status to penicillin; Z88.8 Allergy status to other drugs, medicaments and biological substances; Z98.41 Cataract extraction status, right eye; Z98.42 Cataract extraction status, left eye; Z90.49 Acquired absence of other specified parts of digestive tract